=== PATIENT | female | born 1995 | race Caucasian/White ===

== ENCOUNTER 2020-02-11 06:18 | Emergency (ER) | payer MEDICAID, SELFPAY ==
[2020-02-11 06:20] VITALS: BP 126/99; PULSE 89; RESP 22; TEMP 36.4; O2SAT 100; BMI 35.2
--- NOTE | 2020-02-11 06:23 | ED.RN ---
CALLED FOR EKG PER RN REQUEST, PULLED OLD EKGS FOR
--- NOTE | 2020-02-11 06:26 | RAD_ITS ---
STUDY: X-RAY CHEST REASON FOR EXAM: Female, 24 years old. CHEST PAIN TECHNIQUE: AP portable COMPARISON: 10/20/2010. FINDINGS: The lungs are clear and expanded. There is no demonstrated pleural abnormality. Normal size heart. Normal mediastinum and tulio. Normal visualized pulmonary arteries. Normal visualized aortic arch and descending thoracic aorta. Normal visualized thoracic spine. Normal visualized ribs, clavicles, and shoulders. There is no demonstrated abnormality of the visualized soft tissue structures of the upper abdomen. RAD/Chest 1 View (Portable) IMPRESSION: Negative x-ray examination of the chest. Electronically Signed: Martin Ospina, at 7:15 EDT Tel , Service support ,
--- NOTE | 2020-02-11 06:26 | EKG12_ITS ---
Test Reason : CP Blood Pressure : / mmHG Vent. Rate : 078 BPM Atrial Rate : 078 BPM P-R Int : 176 ms QRS Dur : 104 ms QT Int : 354 ms P-R-T Axes : 053 039 043 degrees QTc Int : 403 ms Normal sinus rhythm Nonspecific T wave abnormality Abnormal ECG Confirmed by DESIREE SHEN ([id number]), dictionary editor JED GASPAR ([id number] on 02/17/2020 1:40:17 PM Referred By: BREN Confirmed By:DESIREE SHEN
[2020-02-11] MEDS: 0.9% Normal Saline 1,000 ML 1000 ML IV (06:40)
[2020-02-11] MEDS: Ondansetron 4 MG/2 ML Vial IV (06:40)
[2020-02-11] MEDS: Mag Hydrox/Al Hydrox/Simeth 30 ML UDC PO (06:40)
--- NOTE | 2020-02-11 06:45 | ED.DCSUM_ITS ---
- ER Visit Summary Date of Service: 02/11/20 Chief Complaint: Chest pain History of Present Illness: The patient is a [address] Moncada. She reports that an hour ago she was awakened from sleep by a lower chest/upper abdominal pain that she cannot further describe. Is 10 on 10 severity. Is worsened when I get up. Relieved by Tylenol. She denies any associated nausea, vomiting, or diaphoresis. She does report she is mild short of breath with this. She denies any spicy or fatty food intolerance. She has no personal or family history of DVT. No recent travel. No ankle swelling or calf pain. Physical Examination: Vitals: Stable. Afebrile. General: Well-nourished and well-developed. Head: Normocephalic atraumatic. Neck: Supple, no lymphadenopathy. No JVD. Nontender. Cardiovascular: Regular rate and rhythm. No murmurs. Respiratory: No respiratory distress. Clear to auscultation bilaterally. Abdominal: Soft, minimal epigastric tenderness to palpation, no right upper quadrant tenderness or Rawls sign, nondistended, normal bowel sounds. No guarding, rebound, or peritoneal signs. Back: Nontender. Extremities: Nontender, no edema. Skin: Normal color, no rash. Neurologic: Alert and oriented ?3. Cranial nerves II through XII are intact. Normal strength and sensation. Psych: Normal affect. Test Results: EKG is sinus at [address] changes. CBC is normal. Chem-7 shows a chloride of 108. LFTs are normal. Lipase is normal. test is negative. Chest x-ray shows no acute disease. Emergency Department Course and Treatment: Patient had an IV placed. She was given a liter normal saline. She was given Zofran IV and a GI cocktail p.o. She has had significant relief from this. She is resting comfortably. Treatment Plan: Patient awoke from sleep with epigastric and chest pain. I suspect that this is due to reflux. She will be placed on Prilosec. Instructed to follow-up with Dr. Sotelo in 1 week for another exam. Return to the emerg ency department for any worsening symptoms. Disposition: To home in improved and stable condition. Impression: 1. Atypical chest pain. 2. Epigastric pain. This note was generated with [employer]ation software. It may contain incorrect words, spelling, and punctuation that were not noted in review of the chart prior to signing ED Disposition - Plan for ED Patient: Instructions: ED Gastritis Prescriptions: Omeprazole [Prilosec] 20 mg PO DAILY #30 capsule Referrals: Luz Maria Sotelo MD [STAFF PHYSICIAN] - 1 Week
[2020-02-11 06:46] LABS: Absolute Lymphocyte Count 2.88 X10^3/uL (0.83-4.51); Absolute Neutrophil Count 4.3 X10^3/uL (2.0-7.7); Basophil# 0.05 X10^3/uL; Basophil% 0.6 % (0-1); Eosinophil# 0.35 X10^3/uL; Eosinophils% 4.2 % (0-5); Hematocrit 41.7 % (37-47); Hemoglobin 13.9 g/dL (12.0-15.0); Lymphocyte # 2.88 X10^3/ul (4.0); Lymphocyte % 34.3 % (19-41); Mean Corp Hgb Conc 33.3 g/dL (32-36); Mean Corpuscular Volume 87.1 fL (81-99); Mean Platelet Vol. 9.8 fl (6.2-12.0); Monocyte# 0.78 X10^3/uL; Monocyte% 9.3 % (0-10); NRBC Flagged by Analyzer 0 % (0-5); Neutrophil # 4.32 X10^3/uL (2.7-7.7); Neutrophil % 51.5 % (47-70); Platelet Count 228 K/mm3 (150-450); RBC Distribution Width CV 11.8 % (11.6-14.6); RBC Distribution Width SD 37.7 fl (35.1-43.9); Red Blood Count 4.79 M/mm3 (4.2-5.4); White Blood Count 8.4 K/mm3 (4.4-11.0)
[2020-02-11 07:06] LABS: Internal QC Validated? YES +Cl - CLEAR BKGD; Pregnancy, Serum, hCG Quali. NEGATIVE Negative
[2020-02-11 07:08] LABS: AST(SGOT) 15 U/L (15-37); Alanine Aminotransfer ALT/SGPT 27 U/L (13-56); Albumin, Serum 3.8 g/dL (3.2-5.0); Alkaline Phosphatase 81 U/L (45-117); Anion Gap 6 (5-15); BUN 16 mg/dL (7-18); BUN/Creat Ratio 20.1 RATIO (10-20); Bilirubin, Direct 0.16 mg/dL (0.00-0.30); Calcium,Total 9.2 mg/dL (8.5-10.1); Chloride 108 mmol/L (98-107); EST Glomerular Filtration Rate 94 mL/min (>60); Est Glom Filt Rate - Afr Amer 114 mL/min (>60); Estimated Creatinine Clearance 97.57 ml/min; Globulin 3.2 g/dL (2.2-4.2); Glucose 96 mg/dL (74-106); Lipase 125 U/L (73-393); Potassium 3.6 mmol/L (3.5-5.1); Sodium Level 139 mmol/L (136-145)
[2020-02-11 07:26] VITALS: BP 114/84; PULSE 77; RESP 20; O2SAT 99
--- OUTSIDE RECORDS SUMMARY | 2020-07-14 08:56 | XMS RPT_ITS | CCD ---
:1995 External Reference #:[id number] Author Organization [facility] Care Team Providers Name Role Phone SIERRAJan Unavailable Unavailable SIERRA, A Unavailable Unavailable MCCOMSEY Unavailable Unavailable MONCADA Unavailable Unavailable SMELCER Unavailable Unavailable MARK Unavailable Unavailable MONCADA Unavailable Unavailable SMELCER Unavailable Unavailable Kristin FLORES Unavailable Unavailable MARCOS, A Unavailable Unavailable Kristin FLORES Unavailable Unavailable Unavailable Primary Care Provider Unavailable Medications Medication Name Sig Date Prescriber Location Ibuprofen ibuprofen (MOTRIN) 10-08-2017 Quang Walls [facility] 600 mg tablet Take Quang Walls (4419 5) 1 tablet by mouth every 6 hours as needed for Pain. 40 tablet 1 10/08/2017 Active Comment: Take 1 tablet by mouth every 6 hours as needed for Pain. Levonorgestrel levonorgestrel (MIRENA 04-11-2019 - [facility] Provider [facility] INTRAUTERINE) by 04-11-2024 [facility] Provider ([id number]) INTRAUTERINE route. 0 04/11/2019 04/11/2024 Active Comment: by INTRAUTERINE route. 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 Contraceptive and IUD contraception Active [facility] procreative management (4419 5) Other complications of Outcome of delivery, Active 10-08-2017 - [facility] (25444) Unclassified 41 weeks gestation of Active 03-13-2017 - [facility] (97852) Past or Other Problems Category Problem Name Status Date Location Fracture of upper limb Fracture of metacarpal Completed 02-26-20 11 - [facility] bone (71498) Normal and/or Encounter for Completed 10-08-2017 - [facility] on General delivery [facility]term [facility] uncomplicated delivery (0000 0) Spondylosis; Low back pain Completed 01-14-2009 - [facility] ic intervertebral disc (63600) disorders; other back problems Unclassified Unknown / UNK(Unknown) 10-08-2017 - [facility] (87265) Unclassified 41 weeks gestation of 10-07-2017 - [facility] (05849) Unclassified Encounter for Completed 03-13-2017 - [facility] screening of (0000 0) mother Results Result Name Value Range Unit Interpretation Flag Date Location progress on 2020-01 PROGRESS HNO ID: [id number] Normal 02-12-2020 [facility] Author: Verito Gillis) ADAN Gonzalez [place] ([id number]) Service: ? Author Type: Registered Nurse Type: Progress Notes Filed: 02/12/2020 9:01 PM Note Text: Summary: Covid Follow Up - Chart Review Onset of symptoms 01/24/2020 Covid Positive 01/27/2020 Unable to reach patient. Not participating in [employer]. Discharge from Monitoring program. VERITO GONZALEZ RN February 12, 2020 9:00 PM PROGRESS HNO ID: [id number] Normal 02-12-2020 [facility] Author: Jaelyn Venegas RN [place] ([id number]) Service: ? Author Type: ? Type: Progress Notes Filed: 02/12/2020 11:33 AM Note Text: Voice Message left message that we had called. Day 20 onset of symptoms. Vivian, this is the [facility] calling, a member of you r household has been diagnosed as positive for COVID-19. We are sorry we missed you, but your care is important to us . You will be receiving a call daily for the next few weeks. Please take a moment to answer our calls. If any of your symptoms have worsened, please call you PCP o ffice to discuss. [facility] and NON [facility] patients may call: ? [facility] Nurse director aeronautics commission at [phone] ? Their PCP Office Caregivers may call: ? [facility] Employee Hotline: [phone] ? [facility] Employee Boost appointment for 24/04 emotional support: [phone] If you are finding it more difficult to breathe, or more blayne rt of breath when walking or climbing stairs, please go to the nearest ED . Inform the staff that you are COVID positive and you are having more sh ortness of breath while doing activities. SIGNATURE: Jaelyn Venegas RN PATIENT NAME: Vanessa Bacon DATE: February 12, 2020 TIME: 11:33 AM cnptoutreach on CNPTOUTREACH Patient Outreach (NURSMN) Normal 0 02-12-2020 [place] [facility] VANESSA BACON ([id number]) 1995 [facility] Time Provider Department ([id number]) 02/12/20 VERITO GONZALEZ (RN) NURSMN During your visit today, we recorded the following informati on about you: VERITO GONZALEZ RN, RN 02/12/2020 9:01 PM Signed Onset of symptoms 01/24/2020 Covid Positive 01/27/2020 Unable to reach patient. Not participating in [employer]rape [employer]. Discharge from Monitoring program. VERITO GONZALEZ RN February 12, 2020 9:00 PM Allergies As of Date: 02/12/2020 (No Known Allergies) Date Reviewed: 04/15/2019 Reviewed by: Jonn Flores MD - Fully Assessed Reason for Visit: Covid Follow Up [8267] Cmt: Covid Follow-Up - Chart Review Prescriptions as of 02/12/2020 Sig: MIRENA INTRAUTERINE by INTRAUTERINE route. IBUPROFEN 600 MG TABLET Take 1 tablet by mouth every * Problem List As Of Date 02/12/2020 Noted Resolved LUMBAGO [M54.5] 01/14/2009 Metacarpal bone fracture [S62.309A] 02/25/2011 ADD (attention deficit disorder) [F98.8] 04/22/2013 Supervision of normal first [Z34.00] 04/09/2014 Rh negative status during , antepartum*07/17/2014 0 12/12/2014 Active labor [[id number]] 10/24/2014 12/12/2014 Supervision of other normal , antepart*02/28/2017 0 03/14/2019 Rh negative state in antepartum period [O26.899*02/28/2017 0 10/08/2017 Chlamydia infection affecting [O98.81*03/02/2017 0 03/14/2019 More... GBS (group B Streptococcus carrier), +RV cultur*09/09/2017 0 10/08/2017 Multigravida in third trimester [Z34.83] 10/07/2017 10/08/19 18 Normal labor [O80, Z37.9] 10/07/2017 10/08/2017 41 weeks gestation of [Z3A.41] 10/07/2017 10/08/19 18 Vaginal delivery [O80] 10/07/2017 01/09/2018 IUD (intrauterine device) in place [Z97.5] More... Encounter Status:Closed by VERITO GONZALEZ on 02/12/20 [facility] Patient Outreach (AMBC[facility]) Normal 0 02-12-2020 [place] [facility] JORDIVANESSA ([id number]) 1995 [facility] Date Time Provider Department ([id number]) 02/12/20 JAELNY VENEGAS (RN) [facility] During your visit today, we recorded the following informati on about you: Jaelyn Venegas RN 02/12/2020 11:33 AM Signed Voice Message left message that we had called. Day 20 onset of symptoms. Helyris, this is the [facility] calling, a member of y our household has been diagnosed as positive for COVID-19. We are sorry we missed you, but your care is important to us . You will be receiving a call daily for the next few weeks. Please take a moment to answer our calls. If any of your symptoms have worsened, please ca ll you PCP office to discuss. [facility] and NON CCF patients may call: ? [facility] Nurse director aeronautics commission at [phone] ? Their PCP Office Caregivers may call: ? [facility] Employee Hotline: [phone] ? [facility] Employee Boost appointment for 24/04 emotional support: [phone] If you are finding it more difficult to breathe, or more short of breath when walking or climbing stairs, please go to the nearest ED. Inform the staff that you are COVID positive and you are havin g more shortness of breath while doing activities. SIGNATURE: Jaelyn Venegas RN PATIENT NAME: Vanessa Bacon DATE: February 12, 2020 TIME: 11:33 AM Allergies As of Date: 02/12/2020 (No Known Allergies) Date Reviewed: 04/15/2019 Reviewed by: Jonn Flores MD - Fully Assessed Reason for Visit: covid follow up (day 20 LVM) [Other] Reason For Visit History Recorded Prescriptions as of 02/12/2020 Sig: MIRENA INTRAUTERINE by INTRAUTERINE route. IBUPROFEN 600 MG TABLET Take 1 tablet by mouth every * Problem List As Of Date 02/12/2020 Noted Resolved LUMBAGO [M54.5] 01/14/2009 Metacarpal bone fracture [S62.309A] 02/25/2011 ADD (attention deficit disorder) [F98.8] 04/22/2013 Supervision of normal first [Z34.00] 04/09/2014 Rh negative status during , antepartum*07/17/2014 0 12/12/2014 Active labor [[id number]] 10/24/2014 12/12/2014 Supervision of other normal , antepart*02/28/2017 0 03/14/2019 Rh negative state in antepartum period [O26.899*02/28/2017 0 10/08/2017 Chlamydia infection affecting [O98.81*03/02/2017 0 03/14/2019 More... GBS (group B Streptococcus carrier), +RV cultur*09/09/2017 0 10/08/2017 Multigravida in third trimester [Z34.83] 10/07/2017 10/08/19 18 Normal labor [O80, Z37.9] 10/07/2017 10/08/2017 41 weeks gestation of [Z3A.41] 10/07/2017 10/08/19 18 Vaginal delivery [O80] 10/07/2017 01/09/2018 IUD (intrauterine device) in place [Z97.5] More... Encounter Status:Closed by JAELYN VENEGAS RN on 02/12/20 progress on 2020-01 PROGRESS HNO ID: [id number] Normal 02-11-2020 [facility] Author: Meaghan Gillis) ADAN Lewis [place] ([id number]) Service: ? Author Type: Registered Nurse Type: Progress Notes Filed: 02/11/2020 10:31 AM Note Text: Voice Message Day Vivian, this is the [facility] calling, a member of you r household has been diagnosed as positive for COVID-19. We are sorry we missed you, but your care is important to us . You will be receiving a call daily for the next few weeks. Please take a moment to answer our calls. If any of your symptoms have worsened, please call you PCP o ffice to discuss. [facility] and NON CCF patients may call: ? [facility] Nurse director aeronautics commission at [phone] ? Their PCP Office Caregivers may call: ? [facility] Employee Hotline: [phone] ? [facility] Employee Boost appointment for 24/04 emotional support: [phone] If you are finding it more difficult to breathe, or more blayne rt of breath when walking or climbing stairs, please go to the nearest ED . Inform the staff that you are COVID positive and you are having more sh ortness of breath while doing activities. SIGNATURE: Meaghan Lewis RN PATIENT NAME: Vanessa Alan Jordi DATE: February 11, 2020 TIME: 10:30 AM cnptoutreach on CNPTOUTREACH Patient Outreach (OTOLWI) Normal 0 02-11-2020 [place] [facility] JORDIVANESSA ([id number]) 1995 F [facility] [place] Date Time Provider Department ([id number]) 02/11/20 MEAGHAN LEWIS (RN) [facility] During your visit today, we recorded the following informati on about you: Meaghan Lewis RN, RN 02/11/2020 10:31 AM Signed Voice Message Day Vivian, this is the [facility] calling, a member of y our household has been diagnosed as positive for COVID-19. We are sorry we missed you, but your care is important to us . You will be receiving a call daily for the next few weeks. Please take a moment to answer our calls. If any of your symptoms have worsened, please ca ll you PCP office to discuss. [facility] and NON CCF patients may call: ? [facility] Nurse director aeronautics commission at [phone] ? Their PCP Office Caregivers may call: ? [facility] Employee Hotline: [phone] ? [facility] Employee Boost appointment for 24/04 emotional support: [phone] If you are finding it more difficult to breathe, or more short of breath when walking or climbing stairs, please go to the nearest ED. Inform the staff that you are COVID positive and you are havin g more shortness of breath while doing activities. SIGNATURE: Meaghan Lewis RN PATIENT NAME: Vanessa Bacon DATE: February 11, 2020 TIME: 10:30 AM Allergies As of Date: 02/11/2020 (No Known Allergies) Date Reviewed: 04/15/2019 Reviewed by: Jonn Flores MD - Fully Assessed Reason for Visit: Covid Follow Up [3887] Cmt: COVID Follow Up Day 19 Prescriptions as of 02/11/2020 Sig: MIRENA INTRAUTERINE by INTRAUTERINE route. IBUPROFEN 600 MG TABLET Take 1 tablet by mouth every * Problem List As Of Date 02/11/2020 Noted Resolved LUMBAGO [M54.5] 01/14/2009 Metacarpal bone fracture [S62.309A] 02/25/2011 ADD (attention deficit disorder) [F98.8] 04/22/2013 Supervision of normal first [Z34.00] 04/09/2014 Rh negative status during , antepartum*07/17/2014 0 12/12/2014 Active labor [VVQ5138] 10/24/2014 12/12/2014 Supervision of other normal , antepart*02/28/2017 0 03/14/2019 Rh negative state in antepartum period [O26.899*02/28/2017 0 10/08/2017 Chlamydia infection affecting [O98.81*03/02/2017 0 03/14/2019 More... GBS (group B Streptococcus carrier), +RV cultur*09/09/2017 0 10/08/2017 Multigravida in third trimester [Z34.83] 10/07/2017 10/08/19 18 Normal labor [O80, Z37.9] 10/07/2017 10/08/2017 41 weeks gestation of [Z3A.41] 10/07/2017 10/08/19 18 Vaginal delivery [O80] 10/07/2017 01/09/2018 IUD (intrauterine device) in place [Z97.5] More... Encounter Status:Closed by MEAGHAN LEWIS on 02/11/20 progress on 2020-01 PROGRESS HNO ID: [id number] Normal 02-10-2020 [facility] Author: Domingo Haley ([id number]) Service: ? Author Type: ? Type: Progress Notes Filed: 02/10/2020 10:09 AM Note Text: Voice Message Rukhsanayris, this is the [facility] calling, a member of you r household has been diagnosed as positive for COVID-19. We are sorry we missed you, but your care is important to us . You will be receiving a call daily for the next few weeks. Please take a moment to answer our calls. If any of your symptoms have worsened, please call you PCP o ffice to discuss. CCF and NON CCF patients may call: ? [facility] Nurse director aeronautics commission at [phone] ? Their PCP Office Caregivers may call: ? [facility] Employee Hotline: [phone] ? [facility] Employee Boost appointment for 24/04 emotional support: [phone] If you are finding it more difficult to breathe, or more blayne rt of breath when walking or climbing stairs, please go to the nearest ED . Inform the staff that you are COVID positive and you are having more sh ortness of breath while doing activities. SIGNATURE: Domingo Grimes PATIENT NAME: Vanessa Bacon DATE: February 10, 2020 TIME: 10:09 AM cnptoutreach on CNPTOUTREACH Patient Outreach (AMBCMG) Normal 0 02-10-2020 [place] [facility] VANESSA BACON ([id number]) 1995 [facility] Time Provider Department ([id number]) 02/10/20 DOMINGO GRIMES ([facility]) [facility] During your visit today, we recorded the following informati on about you: Domingo Grimes 02/10/2020 10:09 AM Signed Voice Message Hello, this is the [facility] calling, a member of y our household has been diagnosed as positive for COVID-19. We are sorry we missed you, but your care is important to us . You will be receiving a call daily for the next few weeks. Please take a moment to answer our calls. If any of your symptoms have worsened, please ca ll you PCP office to discuss. [facility] and NON CCF patients may call: ? [facility] Nurse director aeronautics commission at [phone] ? Their PCP Office Caregivers may call: ? [facility] Employee Hotline: [phone] ? [facility] Employee Boost appointment for 24/04 emotional support: [phone] If you are finding it more difficult to breathe, or more short of breath when walking or climbing stairs, please go to the nearest ED. Inform the staff that you are COVID positive and you are havin g more shortness of breath while doing activities. SIGNATURE: Domingo Grimes PATIENT NAME: Vanessa Bacon DATE: February 10, 2020 TIME: 10:09 AM Allergies As of Date: 02/10/2020 (No Known Allergies) Date Reviewed: 04/15/2019 Reviewed by: Jonn Flores MD - Fully Assessed Reason for Visit: Covid Follow Up [3887] Cmt: Day 17 Prescriptions as of 02/10/2020 Sig: MIRENA INTRAUTERINE by INTRAUTERINE route. IBUPROFEN 600 MG TABLET Take 1 tablet by mouth every * Problem List As Of Date 02/10/2020 Noted Resolved LUMBAGO [M54.5] 01/14/2009 Metacarpal bone fracture [S62.309A] 02/25/2011 ADD (attention deficit disorder) [F98.8] 04/22/2013 Supervision of normal first [Z34.00] 04/09/2014 Rh negative status during , antepartum*07/17/2014 0 12/12/2014 Active labor [FVZ6868] 10/24/2014 12/12/2014 Supervision of other normal , antepart*02/28/2017 0 03/14/2019 Rh negative state in antepartum period [O26.899*02/28/2017 0 10/08/2017 Chlamydia infection affecting [O98.81*03/02/2017 0 03/14/2019 More... GBS (group B Streptococcus carrier), +RV cultur*09/09/2017 0 10/08/2017 Multigravida in third trimester [Z34.83] 10/07/2017 10/08/19 18 Normal labor [O80, Z37.9] 10/07/2017 10/08/2017 41 weeks gestation of [Z3A.41] 10/07/2017 10/08/19 18 Vaginal delivery [O80] 10/07/2017 01/09/2018 IUD (intrauterine device) in place [Z97.5] More... Encounter Status:Closed by DOMINGO GRIMES on 02/10/20 progress on 2020-01 PROGRESS HNO ID: [id number] Normal 02-09-2020 [place] Author: Eugenia (Rn) [facility] Service: ? [place] Author Type: Registered Nurse ([id number]) Type: Progress Notes Filed: 02/09/2020 11:52 AM Note Text: COVID-19 POSITIVE PATIENT OUTREACH DAILY CALL Monitoring Call: Day 16 from symptom onset 01/24/20 *continues to have a cough in the morning when I get up, bu t it is getting better. per pt Vivian, this is the [facility] calling, may I speak to Vanessa Bacon I'm calling you to check in and ensure your needs are being met. Can we discuss if you are getting better or worse and how we can work together to help you recover? Patient identified by name and NOTE TO CAREGIVER: ANSWER THE COVID-19 Caregiver Monitoring FLOWSHEET AND COVID Disposition QUESTIONS NOW OUTCOME: NOTE TO CAREGIVER: AFTER FLOWSHEET COMPLETION PLEASE PLACE D OT PHRASE: (COVIDCAREGIVEMONITORING) COVID-19 Caregiver Monitoring There is no flowsheet data to display. NOTE TO CAREGIVER: AFTER ?COVID Disposition? FLOWSHEET COMPL ETION PLEASE PLACE DOT PHRASE: (COVIDDISPO) This is a stressful time for you and we want you to know you are supported. Would you like resources on how best to manage stress and an xiety during these times? No (Done) If you are worsening in any way please call your Primary Car e Provider right away. [facility] and NON CCF patients may call: ? [facility]CF Nurse director aeronautics commission at [phone] ? Their PCP Office Caregivers may call: ? [facility] Employee Hotline: [phone] [facility]CF Employee Boost appointment for 24/04 emotional support: Patient verbalizes understanding of information provided. Marces any further questions at this time. Please visit CDC.gov website for any updated information abo ut Coronavirus. You can also find information on the [facility] website. Additional information can be found on the [facility] and [facility] web sites: https://www.cdc.gov/coronavirus/2019-nCoV/index.html [email or web address] SIGNATURE: Eugenia Delatorre RN PATIENT NAME: Vanessa Bacon DATE: February 09, 2020 TIME: 11:49 AM cnptoutreach on CNPTOUTREACH Patient Outreach (FAMPAM) Normal 0 02-09-2020 [place] [facility] VANESSA BACON ([id number]) 1995 F [facility] Date Time Provider Department ([id number]) 02/09/20 EUGENIA DELATORRE (RN) JOSE During your visit today, we recorded the following informati on about you: Eugenia Delatorre RN, RN 02/09/2020 11:52 AM Signed COVID-19 POSITIVE PATIENT OUTREACH DAILY CALL Monitoring Call: Day 16 from symptom onset 01/24/20 *continues to have a cough in the morning when I get up, but it is getting better. per pt Vivian, this is the [facility] calling, may I speak to Vanessa Bacon I'm calling you to check in and ensure your needs are being met. Can we discuss if you are getting better or worse and how we can work together to help you recover? Patient identified by name and NOTE TO CAREGIVER: ANSWER THE COVID-19 Caregiver Monitori ng FLOWSHEET AND COVID Disposition QUESTIONS NOW OUTCOME: NOTE TO CAREGIVER: AFTER FLOWSHEET COMPLETION PLEASE PLACE D OT PHRASE: (COVIDCAREGIVEMONITORING) COVID-19 Caregiver Monitoring There is no flowsheet data to display. NOTE TO CAREGIVER: AFTER ?COVID Disposit ion? FLOWSHEET COMPLETION PLEASE PLACE DOT PHRASE: (COVIDDISPO) This is a stressful time for you and we want you to know y ou are supported. Would you like resources on how best to manage stress and anxiety during these times? No (Done) If you are worsening in any way please call your Prima ry Care Provider right away. [facility] and NON CCF patients may call: ? [facility] Nurse director aeronautics commission at [phone] ? Their PCP Office Caregivers may call: ? [facility] Employee Hotline: [phone] [facility] Employee Boost appointment for 24/04 emotional support: Patient verbalizes understanding of information provid ed. Denies any further questions at this time. Please visit CDC.gov website for any updated information about Coronavirus. You can also find information on the [facility] website. Additional information can be found on [facility] and [facility] web sites: https://www.cdc.gov/coronavirus/2019-nCoV/index.html [email or web address] SIGNATURE: Eugenia Delatorre RN PATIENT NAME: Vanessa Bacon DATE: February 09, 2020 TIME: 11:49 AM Allergies As of Date: 02/09/2020 (No Known Allergies) Date Reviewed: 04/15/2019 Reviewed by: Jonn Flores MD - Fully Assessed Reason for Visit: Covid Follow Up [3887] Prescriptions as of 02/09/2020 Sig: MIRENA INTRAUTERINE by INTRAUTERINE route. IBUPROFEN 600 MG TABLET Take 1 tablet by mouth every * Problem List As Of Date 02/09/2020 Noted Resolved LUMBAGO [M54.5] 01/14/2009 Metacarpal bone fracture [S62.309A] 02/25/2011 ADD (attention deficit disorder) [F98.8] 04/22/2013 Supervision of normal first [Z34.00] 04/09/2014 Rh negative status during , antepartum*07/17/2014 0 12/12/2014 Active labor [[id number]] 10/24/2014 12/12/2014 Supervision of other normal , antepart*02/28/2017 0 03/14/2019 Rh negative state in antepartum period [O26.899*02/28/2017 0 10/08/2017 Chlamydia infection affecting [O98.81*03/02/2017 0 03/14/2019 More... GBS (group B Streptococcus carrier), +RV cultur*09/09/2017 0 10/08/2017 Multigravida in third trimester [Z34.83] 10/07/2017 10/08/19 18 Normal labor [O80, Z37.9] 10/07/2017 10/08/2017 41 weeks gestation of [Z3A.41] 10/07/2017 10/08/19 18 Vaginal delivery [O80] 10/07/2017 01/09/2018 IUD (intrauterine device) in place [Z97.5] More... Encounter Status:Closed by EUGENIA DELATORRE on 02/09/20 progress on 2020-01 PROGRESS HNO ID: [id number] Normal 02-08-2020 [facility] Author: Linda Beckett ([place] ([id number]) Service: ? Author Type: Director Radio News Type: Progress Notes Filed: 02/08/2020 12:09 PM Note Text: Voice Message Vivian, this is the [facility] calling, a member of you r household has been diagnosed as positive for COVID-19. We are sorry we missed you, but your care is important to us . You will be receiving a call daily for the next few weeks. Please take a moment to answer our calls. If any of your symptoms have worsened, please call you PCP o ffice to discuss. [facility] and NON CCF patients may call: ? [facility] Nurse director aeronautics commission at [phone] ? Their PCP Office Caregivers may call: ? [facility] Employee Hotline: 584.169.4351 ? [facility] Employee Boost appointment for 24/04 emotional support: [phone] If you are finding it more difficult to breathe, or more blayne rt of breath when walking or climbing stairs, please go to the nearest ED . Inform the staff that you are COVID positive and you are having more sh ortness of breath while doing activities. SIGNATURE: DEREK Silver PATIENT NAME: Vanessa Bacon DATE: February 08, 2020 TIME: 12:09 PM cnptoutreach on CNPTOUTREACH Patient Outreach ([facility]) Normal 0 02-08-2020 [place] [facility] VANESSA BACON ([id number]) 1995 [facility] Date Time Provider Department ([id number]) 02/08/20 LINDA SABA) [facility] During your visit today, we recorded the following informati on about you: DEREK Silver 02/08/2020 12:09 PM Signed Voice Message Vivian, this is the [facility] calling, a member of y our household has been diagnosed as positive for COVID-19. We are sorry we missed you, but your care is important to us . You will be receiving a call daily for the next few weeks. Please take a moment to answer our calls. If any of your symptoms have worsened, please ca ll you PCP office to discuss. [facility] and [facility] patients may call: ? [facility] Nurse director aeronautics commission at [phone] ? Their PCP Office Caregivers may call: ? [facility] Employee Hotline: [phone] ? [facility] Employee Boost appointment for 24/04 emotional support: [phone] If you are finding it more difficult to breathe, or more short of breath when walking or climbing stairs, please go to the nearest ED. Inform the staff that you are COVID positive and you are havin g more shortness of breath while doing activities. SIGNATURE: DEREK Silver PATIENT NAME: Vanessa Bacon DATE: February 08, 2020 TIME: 12:09 PM Allergies As of Date: 02/08/2020 (No Known Allergies) Date Reviewed: 04/15/2019 Reviewed by: Jonn Flores MD - Fully Assessed Reason for Visit: Covid Follow Up [3887] Cmt: Covid follow up Prescriptions as of 02/08/2020 Sig: MIRENA INTRAUTERINE by INTRAUTERINE route. IBUPROFEN 600 MG TABLET Take 1 tablet by mouth every * Problem List As Of Date 02/08/2020 Noted Resolved LUMBAGO [M54.5] 01/14/2009 Metacarpal bone fracture [S62.309A] 02/25/2011 ADD (attention deficit disorder) [F98.8] 04/22/2013 Supervision of normal first [Z34.00] 04/09/2014 Rh negative status during , antepartum*07/17/2014 0 12/12/2014 Active labor [VTV7891] 10/24/2014 12/12/2014 Supervision of other normal , antepart*02/28/2017 0 03/14/2019 Rh negative state in antepartum period [O26.899*02/28/2017 0 10/08/2017 Chlamydia infection affecting [O98.81*03/02/2017 0 03/14/2019 More... GBS (group B Streptococcus carrier), +RV cultur*09/09/2017 0 10/08/2017 Multigravida in third trimester [Z34.83] 10/07/2017 10/08/19 18 Normal labor [O80, Z37.9] 10/07/2017 10/08/2017 41 weeks gestation of [Z3A.41] 10/07/2017 10/08/19 18 Vaginal delivery [O80] 10/07/2017 01/09/2018 IUD (intrauterine device) in place [Z97.5] More... Encounter Status:Closed by LINDA SABA on 02/08/20 progress on 2020-01 PROGRESS HNO ID: [id number] Normal 02-07-2020 [facility] Author: Olivia (Adan) ADAN Denise [place] ([id number]) Service: ? Author Type: Registered Nurse Type: Progress Notes Filed: 03/09/2020 3:00 AM Note Text: Voice Message . Will put on schedule again to assess h ow patient bis doing. Vivian, this is the [facility] calling, a member of you r household has been diagnosed as positive for COVID-19. We are sorry we missed you x 2 telephone calls, but your car e is important to us. You will be receiving a call daily for the next few weeks. Please take a moment to answer our calls. If any of your symptoms have worsened, please call you PCP o ffice to discuss. [facility] and NON [facility] patients may call: ? [facility] Nurse director aeronautics commission at [phone] ? Their PCP Office Caregivers may call: ? [facility] Employee Hotline: [phone] ? [facility] Employee Boost appointment for 24/04 emotional support: [phone] If you are finding it more difficult to breathe, or more blayne rt of breath when walking or climbing stairs, please go to the nearest ED . Inform the staff that you are COVID positive and you are having more sh ortness of breath while doing activities. SIGNATURE: Olivia Denise RN PATIENT NAME: Vanessa Bacon DATE: February 07, 2020 TIME: 9:51 AM cnptoutreach on CNPTOUTREACH Patient Outreach ([facility]) Normal 0 02-07-2020 [place] [facility] VANESSA BACON ([id number]) 1995 [address] [facility] Time Provider Department () 02/07/20 OLIVIA DENISE (RN) [facility] During your visit today, we recorded the following informati on about you: Olivia Denise RN, RN 03/09/2020 3:00 AM Signed Voice Message DAy . Will put on schedule again to assess h ow patient bis doing. Vivian, this is the [facility] calling, a member of y our household has been diagnosed as positive for COVID-19. We are sorry we missed you x 2 telephone calls, but your care is important to us. You will be receiving a call daily for the next few weeks. Please take a moment to answer our calls. If any of your symptoms have worsened, please ca ll you PCP office to discuss. [facility] and NON [facility] patients may call: ? [facility] Nurse director aeronautics commission at [phone] ? Their PCP Office Caregivers may call: ? [facility] Employee Hotline: [phone] ? [facility] Employee Boost appointment for 24/04 emotional support: [phone] If you are finding it more difficult to breathe, or more short of breath when walking or climbing stairs, please go to the nearest ED. Inform the staff that you are COVID positive and you are havin g more shortness of breath while doing activities. SIGNATURE: Olivia Denise RN PATIENT NAME: Vanessa Bacon DATE: February 07, 2020 TIME: 9:51 AM Allergies As of Date: 02/07/2020 (No Known Allergies) Date Reviewed: 04/15/2019 Reviewed by: Jonn Flores MD - Fully Assessed Reason for Visit: COVID -19 Followup [Other] Cmt: Patient Outreach Day 14 Reason For Visit History Recorded Primary Visit Diagnosis:COVID-19 [U07.1] Prescriptions as of 02/07/2020 Sig: MIRENA INTRAUTERINE by INTRAUTERINE route. IBUPROFEN 600 MG TABLET Take 1 tablet by mouth every * Problem List As Of Date 02/07/2020 Noted Resolved LUMBAGO [M54.5] 01/14/2009 Metacarpal bone fracture [S62.309A] 02/25/2011 ADD (attention deficit disorder) [F98.8] 04/22/2013 Supervision of normal first [Z34.00] 04/09/2014 Rh negative status during , antepartum*07/17/2014 0 12/12/2014 Active labor [SQV5945] 10/24/2014 12/12/2014 Supervision of other normal , antepart*02/28/2017 0 03/14/2019 Rh negative state in antepartum period [O26.899*02/28/2017 0 10/08/2017 Chlamydia infection affecting [O98.81*03/02/2017 0 03/14/2019 More... GBS (group B Streptococcus carrier), +RV cultur*09/09/2017 0 10/08/2017 Multigravida in third trimester [Z34.83] 10/07/2017 10/08/19 18 Normal labor [O80, Z37.9] 10/07/2017 10/08/2017 41 weeks gestation of [Z3A.41] 10/07/2017 10/08/19 18 Vaginal delivery [O80] 10/07/2017 01/09/2018 IUD (intrauterine device) in place [Z97.5] More... Encounter Status:Closed by MAN, PRODUSER on 03/09/20 progress on 2020-01 PROGRESS HNO ID: [id number] Normal 02-06-2020 [place] Author: Yash Zambrano (Oa) [facility] Service: ? [place] Author Type: Drawing Tender ([id number]) Type: Progress Notes Filed: 02/06/2020 11:42 AM Note Text: COVID-19 POSITIVE PATIENT OUTREACH DAILY CALL Monitoring Call: Day 13 from symptom onset 01/24/20 Vivian, this is the [facility] calling, may I speak to Vanessa Bacon I'm calling you to check in and ensure your needs are being met. Can we discuss if you are getting better or worse and how we can work together to help you recover? Patient identified by name and NOTE TO CAREGIVER: ANSWER THE COVID-19 Caregiver Monitoring FLOWSHEET AND COVID Disposition QUESTIONS NOW OUTCOME:stable continue to monitor -cough This is a stressful time for you and we want you to know you are supported. Would you like resources on how best to manage stress and an xiety during these times?no If you are worsening in any way please call your Primary Car e Provider right away. [facility] and NON [facility]CF patients may call: ? [facility] Nurse director aeronautics commission at [phone] ? Their PCP Office Caregivers may call: ? [facility] Employee Hotline: [phone] [facility] Employee Boost appointment for 24/04 emotional support: Patient verbalizes understanding of information provided. Marces any further questions at this time. Please visit CDC.gov website for any updated information abo ut Coronavirus. You can also find information on the [facility] website. Additional information can be found on the [facility] and [facility] web sites: https://www.cdc.gov/coronavirus/2019-nCoV/index.html [email or web address] SIGNATURE: BRYAN Webb PATIENT NAME: Vanessa Alan Nagi ruth DATE: February 06, 2020 TIME: 11:39 AM cnptoutreach on CNPTOUTREACH Patient Outreach ([facility]) Normal 0 02-06-2020 [place] [facility] BACONVANESSA ([id number]) 1995 [facility] Time Provider Department ([id number]) 02/06/20 Yash VIDAL (ROBERT) [facility] During your visit today, we recorded the following informati on about you: BRYAN Webb 02/06/2020 11:42 AM Signed COVID-19 POSITIVE PATIENT OUTREACH DAILY CALL Monitoring Call: Day 13 from symptom onset 01/24/20 Vivian, this is the [facility] calling, may I speak to Vanessa Bacon I'm calling you to check in and ensure your needs are being met. Can we discuss if you are getting better or worse and how we can work together to help you recover? Patient identified by name and NOTE TO CAREGIVER: ANSWER THE COVID-19 Caregiver Monitori ng FLOWSHEET AND COVID Disposition QUESTIONS NOW OUTCOME:stable continue to monitor -cough This is a stressful time for you and we want you to know y ou are supported. Would you like resources on how best to manage stress and anxiety during these times?no If you are worsening in any way please call your Prima ry Care Provider right away. [facility] and NON [facility]CF patients may call: ? [facility] Nurse director aeronautics commission at [phone] ? Their PCP Office Caregivers may call: ? [facility] Employee Hotline: [phone] [facility] Employee Boost appointment for 24/04 emotional support: Patient verbalizes understanding of information provid ed. Denies any further questions at this time. Please visit CDC.gov website for any updated information about Coronavirus. You can also find information on the [facility] website. Additional information can be found on [facility] and [facility] web sites: https://www.cdc.gov/coronavirus/2019-nCoV/index.html [email or web address] SIGNATURE: Yash Vidal OPTH-A PATIENT NAME: Vanessa ruth DATE: February 06, 2020 TIME: 11:39 AM Allergies As of Date: 02/06/2020 (No Known Allergies) Date Reviewed: 04/15/2019 Reviewed by: Jonn Flores MD - Fully Assessed Reason for Visit: Covid Follow Up [3887] Prescriptions as of 02/06/2020 Sig: MIRENA INTRAUTERINE by INTRAUTERINE route. IBUPROFEN 600 MG TABLET Take 1 tablet by mouth every * Problem List As Of Date 02/06/2020 Noted Resolved LUMBAGO [M54.5] 01/14/2009 Metacarpal bone fracture [S62.309A] 02/25/2011 ADD (attention deficit disorder) [F98.8] 04/22/2013 Supervision of normal first [Z34.00] 04/09/2014 Rh negative status during , antepartum*07/17/2014 0 12/12/2014 Active labor [XGX6708] 10/24/2014 12/12/2014 Supervision of other normal , antepart*02/28/2017 0 03/14/2019 Rh negative state in antepartum period [O26.899*02/28/2017 0 10/08/2017 Chlamydia infection affecting [O98.81*03/02/2017 0 03/14/2019 More... GBS (group B Streptococcus carrier), +RV cultur*09/09/2017 0 10/08/2017 Multigravida in third trimester [Z34.83] 10/07/2017 10/08/19 18 Normal labor [O80, Z37.9] 10/07/2017 10/08/2017 41 weeks gestation of [Z3A.41] 10/07/2017 10/08/19 18 Vaginal delivery [O80] 10/07/2017 01/09/2018 IUD (intrauterine device) in place [Z97.5] More... Encounter Status:Closed by Yash VIDAL on 02/06/20 progress on 2020-01 PROGRESS HNO ID: [id number] Normal 02-05-2020 [place] Author: Yash Zambrano (Oa) [facility] Service: ? [place] Author Type: Drawing Tender ([id number]) Type: Progress Notes Filed: 02/05/2020 10:13 AM Note Text: COVID-19 POSITIVE PATIENT OUTREACH DAILY CALL Monitoring Call: Day 12 from symptom onset 01/24/20 Vivian, this is the [facility] calling, may I speak to Vanessa Bacon I'm calling you to check in and ensure your needs are being met. Can we discuss if you are getting better or worse and how we can work together to help you recover? Patient identified by name and NOTE TO CAREGIVER: ANSWER THE COVID-19 Caregiver Monitoring FLOWSHEET AND COVID Disposition QUESTIONS NOW OUTCOME:stable continue to monitor This is a stressful time for you and we want you to know you are supported. Would you like resources on how best to manage stress and an xiety during these times?no If you are worsening in any way please call your Primary Car e Provider right away. [facility] and NON CCF patients may call: ? [facility] Nurse director aeronautics commission at [phone] ? Their PCP Office Caregivers may call: ? [facility] Employee Hotline: [phone] [facility] Employee Boost appointment for 24/04 emotional support: Patient verbalizes understanding of information provided. Marces any further questions at this time. Please visit CDC.gov website for any updated information abo ut Coronavirus. You can also find information on the [facility] website. Additional information can be found on the [facility] and [facility] web sites: https://www.cdc.gov/coronavirus/2019-nCoV/index.html [email or web address] SIGNATURE: BRYAN Webb PATIENT NAME: Vanessa Alan Nagi ruth DATE: February 05, 2020 TIME: 10:09 AM cnptoutreach on CNPTOUTREACH Patient Outreach ([facility]) Normal 0 02-05-2020 [place] [facility] VANESSA BACON ([id number]) 1995 [facility] Date Time Provider Department ([id number]) 02/05/20 Yash VIDAL () [facility] During your visit today, we recorded the following informati on about you: BRYAN Webb 02/05/2020 10:13 AM Signed COVID-19 POSITIVE PATIENT OUTREACH DAILY CALL Monitoring Call: Day 12 from symptom onset 01/24/20 Vivian, this is the [facility] calling, may I speak to Vanessa Alan Jordi I'm calling you to check in and ensure your needs are being met. Can we discuss if you are getting better or worse and how we can work together to help you recover? Patient identified by name and NOTE TO CAREGIVER: ANSWER THE COVID-19 Caregiver Monitori ng FLOWSHEET AND COVID Disposition QUESTIONS NOW OUTCOME:stable continue to monitor This is a stressful time for you and we want you to know y ou are supported. Would you like resources on how best to manage stress and anxiety during these times?no If you are worsening in any way please call your Prima ry Care Provider right away. [facility] and NON [facility]CF patients may call: ? [facility] Nurse director aeronautics commission at [phone] ? Their PCP Office Caregivers may call: ? [facility] Employee Hotline: [phone] [facility] Employee Boost appointment for 24/04 emotional support: [phone] Patient verbalizes understanding of information provid ed. Denies any further questions at this time. Please visit CDC.gov website for any updated information about Coronavirus. You can also find information on the [facility] website. Additional information can be found on [facility] and [facility] web sites: https://www.cdc.gov/coronavirus/2019-nCoV/index.html [email or web address] SIGNATURE: Yash Vidal, OPTH-A PATIENT NAME: Vanessa ruth DATE: February 05, 2020 TIME: 10:09 AM Allergies As of Date: 02/05/2020 (No Known Allergies) Date Reviewed: 04/15/2019 Reviewed by: Jonn Flores MD - Fully Assessed Reason for Visit: Covid Follow Up [7887] Prescriptions as of 02/05/2020 Sig: MIRENA INTRAUTERINE by INTRAUTERINE route. IBUPROFEN 600 MG TABLET Take 1 tablet by mouth every * Problem List As Of Date 02/05/2020 Noted Resolved LUMBAGO [M54.5] 01/14/2009 Metacarpal bone fracture [S62.309A] 02/25/2011 ADD (attention deficit disorder) [F98.8] 04/22/2013 Supervision of normal first [Z34.00] 04/09/2014 Rh negative status during , antepartum*07/17/2014 0 12/12/2014 Active labor [FFC2303] 10/24/2014 12/12/2014 Supervision of other normal , antepart*02/28/2017 0 03/14/2019 Rh negative state in antepartum period [O26.899*02/28/2017 0 10/08/2017 Chlamydia infection affecting [O98.81*03/02/2017 0 03/14/2019 More... GBS (group B Streptococcus carrier), +RV cultur*09/09/2017 0 10/08/2017 Multigravida in third trimester [Z34.83] 10/07/2017 10/08/19 18 Normal labor [O80, Z37.9] 10/07/2017 10/08/2017 41 weeks gestation of [Z3A.41] 10/07/2017 10/08/19 18 Vaginal delivery [O80] 10/07/2017 01/09/2018 IUD (intrauterine device) in place [Z97.5] More... Encounter Status:Closed by Yash VIDAL on 02/05/20 progress on 2020-01 PROGRESS HNO ID: [id number] Normal 02-04-2020 [facility] Author: Bela Vidal (Tech) [place] ([id number]) Service: ? Author Type: Director Radio News Type: Progress Notes Filed: 02/04/2020 9:08 AM Note Text: Voice Message [email or web address], this is the [facility] calling, a member of you r household has been diagnosed as positive for COVID-19. We are sorry we missed you, but your care is important to us . You will be receiving a call daily for the next few weeks. Please take a moment to answer our calls. If any of your symptoms have worsened, please call you PCP o ffice to discuss. [facility] and NON CCF patients may call: ? [facility] Nurse director aeronautics commission at [phone] ? Their PCP Office Caregivers may call: ? [facility] Employee Hotline: 400.634.4598 ? [facility] Employee Boost appointment for 24/04 emotional support: [phone] If you are finding it more difficult to breathe, or more blayne rt of breath when walking or climbing stairs, please go to the nearest ED . Inform the staff that you are COVID positive and you are having more sh ortness of breath while doing activities. SIGNATURE: Jazmin Vila PATIENT NAME: Vanessa Bacon DATE: February 04, 2020 TIME: 9:07 AM cnptoutreach on CNPTOUTREACH Patient Outreach ([facility]) Normal 0 02-04-2020 [place] [facility] VANESSA BACON ([id number]) 1995 [facility] Date Time Provider Department ([id number]) 02/04/20 BELA VIDAL ([facility]) [facility] During your visit today, we recorded the following informati on about you: Jazmin Vila 02/04/2020 9:08 AM Signed Voice Message Hello, this is the [facility] calling, a member of y our household has been diagnosed as positive for COVID-19. We are sorry we missed you, but your care is important to us . You will be receiving a call daily for the next few weeks. Please take a moment to answer our calls. If any of your symptoms have worsened, please ca ll you PCP office to discuss. [facility] and NON CCF patients may call: ? [facility] Nurse director aeronautics commission at [phone] ? Their PCP Office Caregivers may call: ? [facility] Employee Hotline: 734.163.1398 ? [facility] Employee Boost appointment for 24/04 emotional support: [phone] If you are finding it more difficult to breathe, or more short of breath when walking or climbing stairs, please go to the nearest ED. Inform the staff that you are COVID positive and you are havin g more shortness of breath while doing activities. SIGNATURE: Jazmin Vila PATIENT NAME: Vanessa Bacon DATE: February 04, 2020 TIME: 9:07 AM Allergies As of Date: 02/04/2020 (No Known Allergies) Date Reviewed: 04/15/2019 Reviewed by: Jonn Flores MD - Fully Assessed Reason for Visit: Track patient outreach [Other] Prescriptions as of 02/04/2020 Sig: MIRENA INTRAUTERINE by INTRAUTERINE route. IBUPROFEN 600 MG TABLET Take 1 tablet by mouth every * Problem List As Of Date 02/04/2020 Noted Resolved LUMBAGO [M54.5] 01/14/2009 Metacarpal bone fracture [S62.309A] 02/25/2011 ADD (attention deficit disorder) [F98.8] 04/22/2013 Supervision of normal first [Z34.00] 04/09/2014 Rh negative status during , antepartum*07/17/2014 0 12/12/2014 Active labor [JUF1889] 10/24/2014 12/12/2014 Supervision of other normal , antepart*02/28/2017 0 03/14/2019 Rh negative state in antepartum period [O26.899*02/28/2017 0 10/08/2017 Chlamydia infection affecting [O98.81*03/02/2017 0 03/14/2019 More... GBS (group B Streptococcus carrier), +RV cultur*09/09/2017 0 10/08/2017 Multigravida in third trimester [Z34.83] 10/07/2017 10/08/19 18 Normal labor [O80, Z37.9] 10/07/2017 10/08/2017 41 weeks gestation of [Z3A.41] 10/07/2017 10/08/19 18 Vaginal delivery [O80] 10/07/2017 01/09/2018 IUD (intrauterine device) in place [Z97.5] More... Encounter Status:Closed by BELA JAMA on 02/04/20 progress on 2020-01 PROGRESS HNO ID: [id number] Normal 02-03-2020 [facility] Author: Kurt Mcconnell (Tech) [place] ([id number]) Service: ? Author Type: Director Radio News Type: Progress Notes Filed: 02/03/2020 9:57 AM Note Text: Voice Message day 10 Disposition: Unable to reach, Left Voicemail - Continue [place], this is the [facility] calling, a member of you r household has been diagnosed as positive for COVID-19. We are sorry we missed you, but your care is important to us . You will be receiving a call daily for the next few weeks. Please take a moment to answer our calls. If any of your symptoms have worsened, please call you PCP o ffice to discuss. [facility] and NON CCF patients may call: ? [facility] Nurse director aeronautics commission at [phone] ? Their PCP Office Caregivers may call: ? [facility] Employee Hotline: 579.618.5741 ? [facility] Employee Boost appointment for 24/04 emotional support: [phone] If you are finding it more difficult to breathe, or more blayne rt of breath when walking or climbing stairs, please go to the nearest ED . Inform the staff that you are COVID positive and you are having more sh ortness of breath while doing activities. SIGNATURE: Jazmin Carlton PATIENT NAME: Vanessa Bacon DATE: February 03, 2020 TIME: 9:55 AM cnptoutreach on CNPTOUTREACH Patient Outreach ([facility]) Normal 0 02-03-2020 [place] [facility] VANESSA BACON ([id number]) 1995 [address] [facility] Time Provider Department ([id number]) 02/03/20 KURT MCCONNELL ([facility]) [facility] During your visit today, we recorded the following informati on about you: Jazmin Carlton 02/03/2020 9:57 AM Signed Voice Message day 10 Disposition: Unable to reach, Left Voicemail - Continue [place], this is the [facility] calling, a member of y our household has been diagnosed as positive for COVID-19. We are sorry we missed you, but your care is important to us . You will be receiving a call daily for the next few weeks. Please take a moment to answer our calls. If any of your symptoms have worsened, please ca ll you PCP office to discuss. [facility] and NON [facility]CF patients may call: ? [facility] Nurse director aeronautics commission at [phone] ? Their PCP Office Caregivers may call: ? [facility] Employee Hotline: 148.735.2889 ? [facility] Employee Boost appointment for 24/04 emotional support: [phone] If you are finding it more difficult to breathe, or more short of breath when walking or climbing stairs, please go to the nearest ED. Inform the staff that you are COVID positive and you are havin g more shortness of breath while doing activities. SIGNATURE: Jazmin Carlton PATIENT NAME: Vanessa Bacon DATE: February 03, 2020 TIME: 9:55 AM Allergies As of Date: 02/03/2020 (No Known Allergies) Date Reviewed: 04/15/2019 Reviewed by: Jonn Flores MD - Fully Assessed Reason for Visit: Covid Follow Up [3887] Cmt: covid f/u day 10 VM Reason For Visit History Recorded Prescriptions as of 02/03/2020 Sig: MIRENA INTRAUTERINE by INTRAUTERINE route. IBUPROFEN 600 MG TABLET Take 1 tablet by mouth every * Problem List As Of Date 02/03/2020 Noted Resolved LUMBAGO [M54.5] 01/14/2009 Metacarpal bone fracture [S62.309A] 02/25/2011 ADD (attention deficit disorder) [F98.8] 04/22/2013 Supervision of normal first [Z34.00] 04/09/2014 Rh negative status during , antepartum*07/17/2014 0 12/12/2014 Active labor [EJG1720] 10/24/2014 12/12/2014 Supervision of other normal , antepart*02/28/2017 0 03/14/2019 Rh negative state in antepartum period [O26.899*02/28/2017 0 10/08/2017 Chlamydia infection affecting [O98.81*03/02/2017 0 03/14/2019 More... GBS (group B Streptococcus carrier), +RV cultur*09/09/2017 0 10/08/2017 Multigravida in third trimester [Z34.83] 10/07/2017 10/08/19 18 Normal labor [O80, Z37.9] 10/07/2017 10/08/2017 41 weeks gestation of [Z3A.41] 10/07/2017 10/08/19 18 Vaginal delivery [O80] 10/07/2017 01/09/2018 IUD (intrauterine device) in place [Z97.5] More... Encounter Status:Closed by KURT MCCONNELL on 02/03/20 progress on 2020-01 PROGRESS HNO ID: [id number] Normal 02-02-2020 [facility] Author: Raymond Roberson (Oa) ([id number]) Service: ? Author Type: Drawing Tender Type: Progress Notes Filed: 02/02/2020 3:37 PM Note Text: Voice Message Rings busy and unable to leave message. Day 9 from onset 01/24/2020 SIGNATURE: Bryan Ivey PATIENT NAME: Vanessa ruth DATE: February 02, 2020 TIME: 3:32 PM cnptoutreach on CNPTOUTREACH Patient Outreach ([facility]) Normal 0 02-02-2020 [place] [facility] VANESSA BACON ([id number]) 1995 [facility] Time Provider Department ([id number]) 02/02/20 RAYMOND ROBERSON (OA) [facility] During your visit today, we recorded the following informati on about you: Bryan Ivey 02/02/2020 3:37 PM Signed Voice Message Rings busy and unable to leave message. Day 9 from onset 01/24/2020 SIGNATURE: Raymond Bryan Roberson PATIENT NAME: Vanessa ruth DATE: February 02, 2020 TIME: 3:32 PM Allergies As of Date: 02/02/2020 (No Known Allergies) Date Reviewed: 04/15/2019 Reviewed by: Jonn Flores MD - Fully Assessed Reason for Visit: Covid Follow Up [7587] Prescriptions as of 02/02/2020 Sig: MIRENA INTRAUTERINE by INTRAUTERINE route. IBUPROFEN 600 MG TABLET Take 1 tablet by mouth every * Problem List As Of Date 02/02/2020 Noted Resolved LUMBAGO [M54.5] 01/14/2009 Metacarpal bone fracture [S62.309A] 02/25/2011 ADD (attention deficit disorder) [F98.8] 04/22/2013 Supervision of normal first [Z34.00] 04/09/2014 Rh negative status during , antepartum*07/17/2014 0 12/12/2014 Active labor [OZX2371] 10/24/2014 12/12/2014 Supervision of other normal , antepart*02/28/2017 0 03/14/2019 Rh negative state in antepartum period [O26.899*02/28/2017 0 10/08/2017 Chlamydia infection affecting [O98.81*03/02/2017 0 03/14/2019 More... GBS (group B Streptococcus carrier), +RV cultur*09/09/2017 0 10/08/2017 Multigravida in third trimester [Z34.83] 10/07/2017 10/08/19 18 Normal labor [O80, Z37.9] 10/07/2017 10/08/2017 41 weeks gestation of [Z3A.41] 10/07/2017 10/08/19 18 Vaginal delivery [O80] 10/07/2017 01/09/2018 IUD (intrauterine device) in place [Z97.5] More... Encounter Status:Closed by RAYMOND ROBERSON on 02/02/20 progress on 2020-01 PROGRESS HNO ID: [id number] Normal 02-01-2020 [place] Author: Emma Membreno (Aud) [facility] Service: ? [place] Author Type: Beef Splitter ([id number]) Type: Progress Notes Filed: 02/01/2020 12:40 PM Note Text: COVID-19 POSITIVE PATIENT OUTREACH DAILY CALL Monitoring Call: Day 8 from symptom onset 01/24/20 (Populate d via order specific question [id number] - [facility] COVID-19 DATE OF SYMPTOMS ONS ET.) Vivian, this is the [facility] calling, may I speak to Vanessa Bacon I'm calling you to check in and ensure your needs are being met. Can we discuss if you are getting better or worse and how we can work together to help you recover? Patient identified by name and COVID-19 Caregiver Monitoring COVID-19 Monitoring 02/01/2020 Caregiver Entered Response Yes Are you feeling short of breath today? No Are you having a cough today? Yes Has it been worse over the past 24 hours? No Are you vomiting? No Are you experiencing diarrhea? No How is your appetite? Better Are you experiencing weakness today? No Highest Temperature - last 24 hours? (Caregiver Entered) 99 Do you have a pulse oximeter / Oxygen Monitor at home Yes Pulse Oxygen reading (Caregiver Entered) 98 Temperature (Patient Entered) (None) SpO2 (Patient Entered) (None) We would like to make sure you have what you need so that yo ur basic needs are met- including your personal safety, food, housing and medications?? Would you like to speak with a social work tea m member to help give you support for any of these needs? No It can be normal to feel anxious or down during a time like this. Would you like to talk to a mental health professional about how y ou have been feeling? No Patient reports that her only symptoms today feel like a col d. She has a cough and producing some phlegm. OUTCOME: Disposition: Stable, continue monitoring This is a stressful time for you and we want you to know you are supported. Would you like resources on how best to manage stress and an xiety during these times? No (Done) If you are worsening in any way please call your Primary Car e Provider right away. [facility] and NON [facility] patients may call: ? [facility] Nurse director aeronautics commission at [phone] ? Their PCP Office Caregivers may call: ? [facility] Employee Hotline: [phone] [facility] Employee Boost appointment for 24/04 emotional support: Patient verbalizes understanding of information provided. Osmar nies any further questions at this time. Please visit CDC.gov website for any updated information abo ut Coronavirus. You can also find information on the [facility] website. Additional information can be found on the CDC and [facility] web sites: https://www.cdc.gov/coronavirus/2019-nCoV/index.html [email or web address].org/coronavirus SIGNATURE: Emma Price PATIENT NAME: Vanessa Purdy rt DATE: February 01, 2020 TIME: 12:35 PM cnptoutreach on CNPTOUTREACH Patient Outreach ([facility]) Normal 0 02-01-2020 [place] VANESSA Edwards ([id number]) 1995 [facility] Date Time Provider Department ([id number]) 02/01/20 EMMA LACEY (AUD)[facility] During your visit today, we recorded the following informati on about you: Emma Price 02/01/2020 12:40 PM Signed COVID-19 POSITIVE PATIENT OUTREACH DAILY CALL Monitoring Call: Day 8 from symptom onset 01/24/20 (Populate d via order specific question [id number] - [facility] COVID-19 DATE OF SYMPTOMS ONS ET.) Vivian, this is the [facility] calling, may I speak to aVnessa Bacon I'm calling you to check in and ensure your needs are being met. Can we discuss if you are getting better or worse and how we can work together to help you recover? Patient identified by name and COVID-19 Caregiver Monitoring COVID-19 Monitoring 02/01/2020 Caregiver Entered Response Yes Are you feeling short of breath today? No Are you having a cough today? Yes Has it been worse over the past 24 hours? No Are you vomiting? No Are you experiencing diarrhea? No How is your appetite? Better Are you experiencing weakness today? No Highest Temperature - last 24 hours? (Caregiver Entered) 99 Do you have a pulse oximeter / Oxygen Monitor at home Yes Pulse Oxygen reading (Caregiver Entered) 98 Temperature (Patient Entered) (None) SpO2 (Patient Entered) (None) We would like to make sure you have what you need so that your basic needs are met- including your personal safety, marcela d, housing and medications?? Would you like to speak with a social work steam generating powerplant mechanic to help give you support for any of these needs? No It can be normal to feel anxious or down during a time lik e this. Would you like to talk to a mental health professional abo nc how you have been feeling? No Patient reports that her only symptoms t [place] feel like a cold. She has a cough and producing some phlegm. OUTCOME: Disposition: Stable, continue monitoring This is a stressful time for you and we want you to know y ou are supported. Would you like resources on how best to manage stress and anxiety during these times? No (Done) If you are worsening in any way please call your Prima ry Care Provider right away. [facility] and NON [facility] patients may call: ? [facility] Nurse director aeronautics commission at [phone] ? Their PCP Office Caregivers may call: ? [facility] Employee Hotline: [phone] [facility] Employee Boost appointment for 24/04 emotional support: Patient verbalizes understanding of information provid ed. Denies any further questions at this time. Please visit CDC.gov website for any updated information about Coronavirus. You can also find information on the [facility] website. Additional information can be found on [facility] and [facility] web sites: https://www.cdc.gov/coronavirus/2019-nCoV/index.html [email or web address] SIGNATURE: Emma Price PATIENT NAME: Vanessa Purdy rt DATE: February 01, 2020 TIME: 12:35 PM Allergies As of Date: 02/01/2020 (No Known Allergies) Date Reviewed: 04/15/2019 Reviewed by: Jonn Flores MD - Fully Assessed Reason for Visit: Covid Follow Up [3887] Cmt: Covid follow up (Day 8) Prescriptions as of 02/01/2020 Sig: MIRENA INTRAUTERINE by INTRAUTERINE route. IBUPROFEN 600 MG TABLET Take 1 tablet by mouth every * Problem List As Of Date 02/01/2020 Noted Resolved LUMBAGO [M54.5] 01/14/2009 Metacarpal bone fracture [S62.309A] 02/25/2011 ADD (attention deficit disorder) [F98.8] 04/22/2013 Supervision of normal first [Z34.00] 04/09/2014 Rh negative status during , antepartum*07/17/2014 0 12/12/2014 Active labor [MAI5553] 10/24/2014 12/12/2014 Supervision of other normal , antepart*02/28/2017 0 03/14/2019 Rh negative state in antepartum period [O26.899*02/28/2017 0 10/08/2017 Chlamydia infection affecting [O98.81*03/02/2017 0 03/14/2019 More... GBS (group B Streptococcus carrier), +RV cultur*09/09/2017 0 10/08/2017 Multigravida in third trimester [Z34.83] 10/07/2017 10/08/19 18 Normal labor [O80, Z37.9] 10/07/2017 10/08/2017 41 weeks gestation of [Z3A.41] 10/07/2017 10/08/19 18 Vaginal delivery [O80] 10/07/2017 01/09/2018 IUD (intrauterine device) in place [Z97.5] More... Encounter Status:Closed by EMMA LACEY on 02/01/20 progress on 2020-01 PROGRESS HNO ID: [id number] Normal 01-31-2020 [facility] Author: Yash Zambrano (Oa) [place] ([id number]) Service: ? Author Type: Drawing Tender Type: Progress Notes Filed: 01/31/2020 11:03 AM Note Text: Voice Message MAIL BOX FULL Day 7 Hello, this is the [facility] calling, a member of you r household has been diagnosed as positive for COVID-19. We are sorry we missed you, but your care is important to us . You will be receiving a call daily for the next few weeks. Please take a moment to answer our calls. If any of your symptoms have worsened, please call you PCP o ffice to discuss. [facility] and NON [facility] patients may call: ? [facility] Nurse director aeronautics commission at [phone] ? Their PCP Office Caregivers may call: ? [facility] Employee Hotline: [phone] ? [facility] Employee Boost appointment for 24/04 emotional support: [phone] If you are finding it more difficult to breathe, or more blayne rt of breath when walking or climbing stairs, please go to the nearest ED . Inform the staff that you are COVID positive and you are having more sh ortness of breath while doing activities. SIGNATURE: BRYAN Webb PATIENT NAME: Vanessa ruth DATE: January 31, 2020 TIME: 11:02 AM cnptoutreach on CNPTOUTREACH Patient Outreach ([facility]) Normal 0 01-31-2020 [place] [id number] 1995 [facility] Time Provider Department ([id number]) 01/31/20 Yash VIDAL (ROBERT) [facility] During your visit today, we recorded the following informati on about you: BRYAN Webb 01/31/2020 11:03 AM Signed Voice Message MAIL BOX FULL Helyris, this is the [facility] calling, a member of y our household has been diagnosed as positive for COVID-19. We are sorry we missed you, but your care is important to us . You will be receiving a call daily for the next few weeks. Please take a moment to answer our calls. If any of your symptoms have worsened, please ca ll you PCP office to discuss. [facility] and NON [facility] patients may call: ? [facility] Nurse director aeronautics commission at [phone] ? Their PCP Office Caregivers may call: ? [facility] Employee Hotline: [phone] ? [facility] Employee Boost appointment for 24/04 emotional support: [phone] If you are finding it more difficult to breathe, or more short of breath when walking or climbing stairs, please go to the nearest ED. Inform the staff that you are COVID positive and you are havin g more shortness of breath while doing activities. SIGNATURE: BRYAN Webb PATIENT NAME: Vanessa ruth DATE: January 31, 2020 TIME: 11:02 AM Allergies As of Date: 01/31/2020 (No Known Allergies) Date Reviewed: 04/15/2019 Reviewed by: Jonn Flores MD - Fully Assessed Reason for Visit: Covid Follow Up [3887] Prescriptions as of 01/31/2020 Sig: MIRENA INTRAUTERINE by INTRAUTERINE route. IBUPROFEN 600 MG TABLET Take 1 tablet by mouth every * Problem List As Of Date 01/31/2020 Noted Resolved LUMBAGO [M54.5] 01/14/2009 Metacarpal bone fracture [S62.309A] 02/25/2011 ADD (attention deficit disorder) [F98.8] 04/22/2013 Supervision of normal first [Z34.00] 04/09/2014 Rh negative status during , antepartum*07/17/2014 0 12/12/2014 Active labor [BKN1773] 10/24/2014 12/12/2014 Supervision of other normal , antepart*02/28/2017 0 03/14/2019 Rh negative state in antepartum period [O26.899*02/28/2017 0 10/08/2017 Chlamydia infection affecting [O98.81*03/02/2017 0 03/14/2019 More... GBS (group B Streptococcus carrier), +RV cultur*09/09/2017 0 10/08/2017 Multigravida in third trimester [Z34.83] 10/07/2017 10/08/19 18 Normal labor [O80, Z37.9] 10/07/2017 10/08/2017 41 weeks gestation of [Z3A.41] 10/07/2017 10/08/19 18 Vaginal delivery [O80] 10/07/2017 01/09/2018 IUD (intrauterine device) in place [Z97.5] More... Encounter Status:Closed by Yash VIDAL on 01/31/20 progress on 2020-01 PROGRESS HNO ID: [id number] Normal 01-30-2020 [place] Author: Veronica Newton (Tech) [facility] Service: ? [place] Author Type: Director Radio News ([id number]) Type: Progress Notes Filed: 01/30/2020 10:14 AM Note Text: COVID-19 POSITIVE PATIENT OUTREACH DAILY CALL Monitoring Call: Day 6 from symptom onset 01/24/20 (Populate d via order specific question [id number] - [facility] COVID-19 DATE OF SYMPTOMS ONS ET.) Rukhsanayris, this is the [facility] calling, may I speak to Vanessa Bacon I'm calling you to check in and ensure your needs are being met. Can we discuss if you are getting better or worse and how we can work together to help you recover? Patient identified by name and OUTCOME: COVID-19 Caregiver Monitoring COVID-19 Monitoring 01/30/2020 Caregiver Entered Response Yes Are you feeling short of breath today? No Are you having a cough today? Yes Has it been worse over the past 24 hours? Yes Refer to CDC and [facility] website Referred to Lizzy es Are you vomiting? No Are you experiencing diarrhea? Yes Have you been able to stay hydrated? Yes How is your appetite? Same Are you experiencing weakness today? No Highest Temperature - last 24 hours? (Caregiver Entered) 99. 7 Do you have a pulse oximeter / Oxygen Monitor at home Yes Pulse Oxygen reading (Caregiver Entered) 98 Temperature (Patient Entered) (None) SpO2 (Patient Entered) (None) We would like to make sure you have what you need so that yo ur basic needs are met- including your personal safety, food, housing and medications?? Would you like to speak with a social work tea m member to help give you support for any of these needs? No It can be normal to feel anxious or down during a time like this. Would you like to talk to a mental health professional about how y ou have been feeling? No Advanced Directives I am ready to learn more on my own. Patient continues to cough, and was coughing while speaking with her on the phone. .Disposition: Stable, continue monitoring This is a stressful time for you and we want you to know you are supported. Would you like resources on how best to manage stress and an xiety during these times? No (Done) If you are worsening in any way please call your Primary Car e Provider right away. [facility] and NON [facility] patients may call: ? [facility] Nurse director aeronautics commission at [phone] ? Their PCP Office Caregivers may call: ? [facility] Employee Hotline: [phone] [facility] Employee Boost appointment for 24/04 emotional support: [phone] Patient verbalizes understanding of information provided. De nies any further questions at this time. Please visit CDC.gov website for any updated information abo ut Coronavirus. You can also find information on the [facility] website. Additional information can be found on the [facility] and [facility] web sites: https://www.cdc.gov/coronavirus/2019-nCoV/index.html https://[email or web address]/coronavirus SIGNATURE: Jazmin Brandt PATIENT NAME: Vanessa ruth DATE: January 30, 2020 TIME: 10:07 AM cnptoutreach on CNPTOUTREACH Patient Outreach ([facility]) Normal 0 01-30-2020 [place] Martina BACONVANESSA Alan ([id number]) 1995 [facility] Time Provider Department ([id number]) 01/30/20 VERONICA NEWTON (JAZMIN) [facility] During your visit today, we recorded the following informati on about you: Jazmin Brandt 01/30/2020 10:14 AM Signed COVID-19 POSITIVE PATIENT OUTREACH DAILY CALL Monitoring Call: Day 6 from symptom onset 01/24/20 (Populate d via order specific question [id number] - [facility] COVID-19 DATE OF SYMPTOMS ONS ET.) Vivian, this is the [facility] calling, may I speak to Vanessa Bacon I'm calling you to check in and ensure your needs are being met. Can we discuss if you are getting better or worse and how we can work together to help you recover? Patient identified by name and OUTCOME: COVID-19 Caregiver Monitoring COVID-19 Monitoring 01/30/2020 Caregiver Entered Response Yes Are you feeling short of breath today? No Are you having a cough today? Yes Has it been worse over the past 24 hours? Yes Refer to [facility] and [facility] website Referred to Lizzy es Are you vomiting? No Are you experiencing diarrhea? Yes Have you been able to stay hydrated? Yes How is your appetite? Same Are you experiencing weakness today? No Highest Temperature - last 24 hours? (Caregiver Entered) 99. 7 Do you have a pulse oximeter / Oxygen Monitor at home Yes Pulse Oxygen reading (Caregiver Entered) 98 Temperature (Patient Entered) (None) SpO2 (Patient Entered) (None) We would like to make sure you have what you need so that your basic needs are met- including your personal safety, marcela d, housing and medications?? Would you like to speak with a social work steam generating powerplant mechanic to help give you support for any of these needs? No It can be normal to feel anxious or down during a time lik e this. Would you like to talk to a mental health professional abo nc how you have been feeling? No Advanced Directives I am ready to learn more on my own. Patient continues to cough, and was coughing while speakin g with her on the phone. .Disposition: Stable, continue monitoring This is a stressful time for you and we want you to know y ou are supported. Would you like resources on how best to manage stress and anxiety during these times? No (Done) If you are worsening in any way please call your Prima Care Provider right away. [facility] and NON [facility] patients may call: ? [facility] Nurse director aeronautics commission at [phone] ? Their PCP Office Caregivers may call: ? [facility] Employee Hotline: [phone] [facility] Employee Boost appointment for 24/04 emotional support: Patient verbalizes understanding of information provid ed. Denies any further questions at this time. Please visit CDC.gov website for any updated information about Coronavirus. You can also find information on the [facility] website. Additional information can be found on [facility] and [facility] web sites: https://www.cdc.gov/coronavirus/2019-nCoV/index.html [email or web address]/[email or web address] SIGNATURE: Jazmin Brandt PATIENT NAME: Vanessa ruth DATE: January 30, 2020 TIME: 10:07 AM Allergies As of Date: 01/30/2020 (No Known Allergies) Date Reviewed: 04/15/2019 Reviewed by: Jonn Flores MD - Fully Assessed Reason for Visit: Covid Follow Up [3887] Cmt: covid follow up Prescriptions as of 01/30/2020 Sig: MIRENA INTRAUTERINE by INTRAUTERINE route. IBUPROFEN 600 MG TABLET Take 1 tablet by mouth every * Problem List As Of Date 01/30/2020 Noted Resolved LUMBAGO [M54.5] 01/14/2009 Metacarpal bone fracture [S62.309A] 02/25/2011 ADD (attention deficit disorder) [F98.8] 04/22/2013 Supervision of normal first [Z34.00] 04/09/2014 Rh negative status during , antepartum*07/17/2014 0 12/12/2014 Active labor [VVM0882] 10/24/2014 12/12/2014 Supervision of other normal , antepart*02/28/2017 0 03/14/2019 Rh negative state in antepartum period [O26.899*02/28/2017 0 10/08/2017 Chlamydia infection affecting [O98.81*03/02/2017 0 03/14/2019 More... GBS (group B Streptococcus carrier), +RV cultur*09/09/2017 0 10/08/2017 Multigravida in third trimester [Z34.83] 10/07/2017 10/08/19 18 Normal labor [O80, Z37.9] 10/07/2017 10/08/2017 41 weeks gestation of [Z3A.41] 10/07/2017 10/08/19 18 Vaginal delivery [O80] 10/07/2017 01/09/2018 IUD (intrauterine device) in place [Z97.5] More... Encounter Status:Closed by VERONICA NEWTON on 01/30/20 cnpn on 2020-01-29 CNPN Telephone (CATHMN) Normal 01-29-2020 [place] VANESSA [place] ([id number]) 1995 [place] Date Time Provider Department ([id number]) 01/29/20 TELLO SHOEMAKER (RN) CATHMN During your visit today, we recorded the following informati on about you: Tello Gali 01/29/2020 12:35 PM Signed Called patient at this time for follow up after receiving [employer] consent. Pt did not answer and mailbox was full, unable to leave Cocodrilo Dog message. Tello Gali RN Pager: [phone] Allergies As of Date: 01/29/2020 (No Known Allergies) Date Reviewed: 04/15/2019 Reviewed by: Jonn Flores MD - Fully Assessed Reason for Visit: Research F/U [778] Cmt: IRB#[phone] COVID AtoZ call back Primary Visit Diagnosis:IRB#[phone] COVID AtoZ call back [Z00 .6] Prescriptions as of 01/29/2020 Sig: MIRENA INTRAUTERINE by INTRAUTERINE route. IBUPROFEN 600 MG TABLET Take 1 tablet by mouth every * Problem List As Of Date 01/29/2020 Noted Resolved LUMBAGO [M54.5] 01/14/2009 Metacarpal bone fracture [S62.309A] 02/25/2011 ADD (attention deficit disorder) [F98.8] 04/22/2013 Supervision of normal first [Z34.00] 04/09/2014 Rh negative status during , antepartum*07/17/2014 0 12/12/2014 Active labor [AIT5114] 10/24/2014 12/12/2014 Supervision of other normal , antepart*02/28/2017 0 03/14/2019 Rh negative state in antepartum period [O26.899*02/28/2017 0 10/08/2017 Chlamydia infection affecting [O98.81*03/02/2017 0 03/14/2019 More... GBS (group B Streptococcus carrier), +RV cultur*09/09/2017 0 10/08/2017 Multigravida in third trimester [Z34.83] 10/07/2017 10/08/19 18 Normal labor [O80, Z37.9] 10/07/2017 10/08/2017 41 weeks gestation of [Z3A.41] 10/07/2017 10/08/19 18 Vaginal delivery [O80] 10/07/2017 01/09/2018 IUD (intrauterine device) in place [Z97.5] More... Encounter Status:Closed by TELLO SHOEMAKER on 01/29/20 progress on 2020-01 PROGRESS HNO ID: [id number] Normal 01-28-2020 [facility] Author: Harjit Gillis) ADAN Davis [place] ([id number]) Service: ? Author Type: Registered Nurse Type: Progress Notes Filed: 01/28/2020 1:09 PM Note Text: HVI RESEARCH DISCUSSION NOTE COVID POSITIVE 20-361 Coronavirus Disease 2019- Using Ascorbic Acid and Zin c Supplementation (COVIDAtoZ): Insert only IRB approved COVID studies Study explained/reviewed with Patient via Phone encounter. Study related follow-up requirements were discussed. Risks, benefits, alternatives, personnel, and costs of the s tudy explained/reviewed. Patient provided informed consent for review via Email Study related questions were addressed. Coordinator: Harjit Davis RN AND Pager: [phone] PROGRESS HNO ID: [id number] Normal 01-28-2020 [facility] Author: Tiffanie LynneRn) ADAN Sewell [place] ([id number]) Service: ? Author Type: Registered Nurse Type: Progress Notes Filed: 01/28/2020 10:37 AM Note Text: COVID-19 POSITIVE PATIENT OUTREACH INTAKE Reason for call: Notification of Positive Results and Intake Vivian, this is the [facility] calling, may I speak to Vanessa Bacon Patient identified by name and I am calling to notify you that your COVID-19 testing was po sitive. I understand this is worrisome to you and want you to know w e are here to help you. I am contacting you to help you understand what this means, monitor if you are getting better or worse and how we can work together to help you recover. Also, your local health department will also be contacting y ou, if they have not yet already. The Health Department will provide you with important inform ation and help you, and your family, understand the next steps in working through this infection. It is very important to talk with them and provide any needed information. They will also help you with clearance once you have recovered from this infection. In some cases, your employer may provide additional guidance as well, but the health department will be the organization that officially provides you with guidance on when you can discontinue isolation. Diagnosed with COVID-19 on 01/27/2020 Symptom start date: 01/24/20 Confirm PCP: No primary care provider on file. High Risk Category:4 None NOTE TO CAREGIVER: ASK THESE QUESTIONS FIRST Do you have someone at home with you or someone who can go t o the store to get food or medication for you? Yes. Who? boyfriend (if no, see PCSW order below) Are you able to follow the quarantine guidelines? Yes Would you like me to send you information about COVID-19? No Does patient need a referral to resources or PCSW? No We want to support you and closely monitor your symptoms. To best do that, I am inviting you to complete a short questionnaire ev for the next 14 days that will ask how you are feeling - and if certain symptoms are improving or getting worse. Your treatment team , Including a nurse, will review your answers and then follow up if we notice any concerning changes in your symptoms. The question naire will come to you through your [employer] account. May I sign yo u up for this? Yes NOTE TO CAREGIVER: ANSWER THE COVID-19 Caregiver Monitoring FLOWSHEET AND 'COVID Disposition QUESTIONS NOW IN THE ENCOUNTER. OUTCOME: NOTE TO CAREGIVER: AFTER FLOWSHEET COMPLETION PLEASE PLACE D OT PHRASE: (COVIDCAREGIVEMONITORING) COVID-19 Caregiver Monitoring COVID-19 Monitoring 01/28/2020 Caregiver Entered Response Yes Are you feeling short of breath today? Yes Have you been able to perform your activities of daily livin g today without shortness of breath? Yes Are you having a cough today? Yes Has it been worse over the past 24 hours? Yes Are you vomiting? No Are you experiencing diarrhea? Yes Have you been able to stay hydrated? Yes How is your appetite? Same Are you experiencing weakness today? No Highest Temperature - last 24 hours? (Caregiver Entered) 98. 8 Do you have a pulse oximeter / Oxygen Monitor at home Yes Pulse Oxygen reading (Caregiver Entered) 99 Temperature (Patient Entered) (None) SpO2 (Patient Entered) (None) We would like to make sure you have what you need so that yo ur basic needs are met- including your personal safety, food, housing and medications?? Would you like to speak with a social work tea m member to help give you support for any of these needs? No It can be normal to feel anxious or down during a time like this. Would you like to talk to a mental health professional about how y ou have been feeling? No NOTE TO CAREGIVER: AFTER ?COVID Disposition? FLOWSHEET COMPL ETION PLEASE PLACE DOT PHRASE: (COVIDDISPO) Disposition: Stable, continue monitoring This is a stressful time for you and we want you to know you are supported. Would you like resources on how best to manage stress and an xiety during these times No (Done) Explained to patient that we will be calling for the next co uple of weeks and to please take a moment to answer our calls. If you are worsening in any way please call your Primary Car e Provider right away. We are here to support you if you have a change in your symp toms between now, and our future contact. Please contact us if you have n eeds. [facility] and NON [facility] patients may call: ? [facility] Nurse director aeronautics commission at [phone] ? Their PCP Office Caregivers may call: ? [facility] Employee Hotline: [phone] [facility] Employee Boost appointment for 24/04 emotional support: Patient verbalizes understanding of information provided. Marces any further questions at this time. Please visit CDC.gov website for any updated information abo ut Coronavirus. You can also find information on the [facility] website. Additional information can be found on the CDC and [facility] web sites: https://www.cdc.gov/coronavirus/2019-nCoV/index.html [email or web address] SIGNATURE: Tiffanie Sewell RN PATIENT NAME: Vanessa Alan Jey rt DATE: January 28, 2020 TIME: 10:30 AM cnptoutreach on CNPTOUTREACH Patient Outreach (PANEHI) Normal 0 01-28-2020 [facility] JORDIVANESAS ([id number]) 1995 [facility] Date Time Provider Department ([id number]) 01/28/20 TIFFANIE SEWELL (RN) FRANCISCO JAVIER During your visit today, we recorded the following informati on about you: Tiffanie Sewell, RN, RN 01/28/2020 10:37 AM Signed COVID-19 POSITIVE PATIENT OUTREACH INTAKE Reason for call: Notification of Positive Results and Intake Vivian, this is the [facility] calling, may I speak to Vanessa Bacon Patient identified by name and I am calling to notify you that your COVID-19 testing was po sitive. I understand this is worrisome to you an d want you to know we are here to help you. I am contacting you to help you understa nd what this means, monitor if you are getting better or worse and how we can work together to help you recover. Also, your local health department will also be contac ting you, if they have not yet already. The Health Department will p rovide you with important information and help you, and your family, understand the next steps in working through this infection. It is very important to talk with them and provide any needed information. They will also help you with clearance once you have recovered from this infection. In some cases, your employer may provide additional guidance as well, but the health department will be the organizatio n that officially provides you with guidance on when you can discontinue isolation. Diagnosed with COVID-19 on 01/27/2020 Symptom start date: 01/24/20 Confirm PCP: No primary care provider on file. High Risk Category:4 None NOTE TO CAREGIVER: ASK THESE QUESTIONS FIRST Do you have someone at home with you or someone who can go to the store to get food or medication for you? Yes. Who? boyfriend (if no, see PCSW order below) Are you able to follow the quarantine guidelines? Yes Would you like me to send you information about COVID-19? No Does patient need a referral to resources or PCSW? No We want to support you and closely monitor your sympto ms. To best do that, I am inviting you to complete a short questionnaire every day for the next 14 days that will ask how you are feeling - and if certain symptoms are improving or getting worse. Your treatment team , Including a nurse, will revi ew your answers and then follow up if we notice any concerning changes in your symptoms. The questionnaire will come to you through your [employer] ac count. May I sign you up for this? Yes NOTE TO CAREGIVER: ANSWER THE COVID-19 Caregiver Monitoring FLOWSHEET AND 'COVID Disposition QUESTIONS NOW IN THE ENCOUNTER. OUTCOME: NOTE TO CAREGIVER: AFTER FLOWSHEET COMPLETION PLEASE PLACE D OT PHRASE: (COVIDCAREGIVEMONITORING) COVID-19 Caregiver Monitoring COVID-19 Monitoring 01/28/2020 Caregiver Entered Response Yes Are you feeling short of breath today? Yes Have you been able to perform your activities of daily vanita ing today without shortness of breath? Yes Are you having a cough today? Yes Has it been worse over the past 24 hours? Yes Are you vomiting? No Are you experiencing diarrhea? Yes Have you been able to stay hydrated? Yes How is your appetite? Same Are you experiencing weakness today? No Highest Temperature - last 24 hours? (Caregiver Entered) 98. 8 Do you have a pulse oximeter / Oxygen Monitor at home Yes Pulse Oxygen reading (Caregiver Entered) 99 Temperature (Patient Entered) (None) SpO2 (Patient Entered) (None) We would like to make sure you have what you need so that your basic needs are met- including your personal safety, marcela d, housing and medications?? Would you like to speak with a social work steam generating powerplant mechanic to help give you support for any of these needs? No It can be normal to feel anxious or down during a time lik e this. Would you like to talk to a mental health professional abo ut how you have been feeling? No NOTE TO CAREGIVER: AFTER ?COVID Disposit ion? FLOWSHEET COMPLETION PLEASE PLACE DOT PHRASE: (COVIDDISPO) Disposition: Stable, continue monitoring This is a stressful time for you and we want you to know y ou are supported. Would you like resources on how best to manage stress and anxiety during these times No (Done) Explained to patient that we will be calling for the next couple of weeks and to please take a moment to answer our calls. If you are worsening in any way please call your Prima ry Care Provider right away. We are here to support you if you have a change in your symptoms between now, and our future contact. Please contact us if you have needs. [facility] and NON [facility] patients may call: ? [facility] Nurse director aeronautics commission at [phone] ? Their PCP Office Caregivers may call: ? [facility] Employee Hotline: [phone] [facility] Employee Boost appointment for 24/04 emotional support: Patient verbalizes understanding of information provid ed. Denies any further questions at this time. Please visit CDC.gov website for any updated information about Coronavirus. You can also find information on the [facility] website. Additional information can be found on [facility] and [facility] web sites: https://www.cdc.gov/coronavirus/2019-nCoV/index.html [email or web address] SIGNATURE: Tiffanie Sewell RN PATIENT NAME: Vanessa Purdy rt DATE: January 28, 2020 TIME: 10:30 AM Allergies As of Date: 01/28/2020 (No Known Allergies) Date Reviewed: 04/15/2019 Reviewed by: Jonn Flores MD - Fully Assessed Reason for Visit: Covid Follow Up [3887] Cmt: Intake, Day 5 Symptom onset Reason For Visit History Recorded Order(s):[facility] COVID-19 HOME MONITORING [[id number]] Order #: [id number] Prescriptions as of 01/28/2020 Sig: MIRENA INTRAUTERINE by INTRAUTERINE route. IBUPROFEN 600 MG TABLET Take 1 tablet by mouth every * Problem List As Of Date 01/28/2020 Noted Resolved LUMBAGO [M54.5] 01/14/2009 Metacarpal bone fracture [S62.309A] 02/25/2011 ADD (attention deficit disorder) [F98.8] 04/22/2013 Supervision of normal first [Z34.00] 04/09/2014 Rh negative status during , antepartum*07/17/2014 0 12/12/2014 Active labor [HBA7851] 10/24/2014 12/12/2014 Supervision of other normal , antepart*02/28/2017 0 03/14/2019 Rh negative state in antepartum period [O26.899*02/28/2017 0 10/08/2017 Chlamydia infection affecting [O98.81*03/02/2017 0 03/14/2019 More... GBS (group B Streptococcus carrier), +RV cultur*09/09/2017 0 10/08/2017 Multigravida in third trimester [Z34.83] 10/07/2017 10/08/19 18 Normal labor [O80, Z37.9] 10/07/2017 10/08/2017 41 weeks gestation of [Z3A.41] 10/07/2017 10/08/19 18 Vaginal delivery [O80] 10/07/2017 01/09/2018 IUD (intrauterine device) in place [Z97.5] More... Encounter Status:Closed by MELODIE JULIAN, TIFFANIE Newsome on 01/28/20 cnov on 2020-01-28 CNOV Office Visit (CARIMN) Normal 01-28-20 [facility] VANESSA BACON ([id number]) 1995 [facility] Date Time Provider Department ([id number]) 01/28/20 7:00 AM RESEARCH NURSE CARD IMAGING MNCARIMN During your visit today, we recorded the following informati on about you: Harjit Davis RN, RN 01/28/2020 1:09 PM Signed [facility] RESEARCH DISCUSSION NOTE COVID POSITIVE Coronavirus Disease 2019- Using Ascorbic Acid and Zinc Supplementation (COVIDAtoZ): Insert only IRB approved COVID studies Study explained/reviewed with Patient via Phone encounter. Study related follow-up requirements were discussed. Risks, benefits, alternatives, personnel, and costs of the s tudy explained/reviewed. Patient provided informed consent for review via Email Study related questions were addressed. Coordinator: Harjit Davis RN AND Pager: [phone] Referring Provider: ANGELIA SEVILLA [[id number]] Allergies As of Date: 01/28/2020 (No Known Allergies) Date Reviewed: 04/15/2019 Reviewed by: Jonn Flores MD - Fully Assessed Reason for Visit: Research [293] Cmt: Coronavirus Disease 2019- U sing Ascorbic Acid and Zinc Supplementation (COVIDAtoZ): Insert only IRB approved COVID studies Primary Visit Diagnosis:[id number] Coronavirus Disease 201 9- Using Ascorbic Acid and Zinc Supplementation (COVIDAtoZ): Insert only IRB approved COVID studies [Z00.6] Prescriptions as of 01/28/2020 Sig: MIRENA INTRAUTERINE by INTRAUTERINE route. IBUPROFEN 600 MG TABLET Take 1 tablet by mouth every * Problem List As Of Date 01/28/2020 Noted Resolved LUMBAGO [M54.5] 01/14/2009 Metacarpal bone fracture [S62.309A] 02/25/2011 ADD (attention deficit disorder) [F98.8] 04/22/2013 Supervision of normal first [Z34.00] 04/09/2014 Rh negative status during , antepartum*07/17/2014 0 12/12/2014 Active labor [SIA0784] 10/24/2014 12/12/2014 Supervision of other normal , antepart*02/28/2017 0 03/14/2019 Rh negative state in antepartum period [O26.899*02/28/2017 0 10/08/2017 Chlamydia infection affecting [O98.81*03/02/2017 0 03/14/2019 More... GBS (group B Streptococcus carrier), +RV cultur*09/09/2017 0 10/08/2017 Multigravida in third trimester [Z34.83] 10/07/2017 10/08/19 18 Normal labor [O80, Z37.9] 10/07/2017 10/08/2017 41 weeks gestation of [Z3A.41] 10/07/2017 10/08/19 18 Vaginal delivery [O80] 10/07/2017 01/09/2018 IUD (intrauterine device) in place [Z97.5] More... Encounter Status:Closed by HARJIT DAVIS on 01/28/20 progress on 2020-01 PROGRESS HNO ID: [id number] Normal 01-27-2020 [facility] Author: Suzan Izaguirre) Maury Haley ([id number]) Service: ? Author Type: Physician Fourchette Sewer Type: Progress Notes Filed: 01/27/2020 11:36 AM Note Text: This Team Access Model visit is a virtual encounter. It requ ired patient-provider interaction for the medical decision making as documented below. HIPAA secured video was used for evaluation of this patient. Location of patient: [place] Telemedicine Evaluation for COVID-19 Infection SUBJECTIVE: Vanessa Bacon is a 24 year old year old female who presents for the past 3 days with symptoms that are:gradually worsening. States she was seen on [employer] ([email or web address]) platform 01/24, she claims COVI D testing ordered but she never received info on how to get tested Symptoms include: Dry cough, chest pressure with coughing, SOB with exertion. Denies wheezing, PND, hemoptysis. Temps up to 99.8F. Denies chills. Endorses malaise. Nasal congestion. Denies chest congestion, sinus pressure, p ost-nasal drainage, ST. Frontal headaches and endorses acute loss of smell or taste Denies abdominal pain, n/v/d/c. 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 Yes Has the patient had contact with anyone confirmed or a proba ble case with COVID-19 infection in the last 14 days? Yes Does the patient have family with confirmed COVID-19 infecti on: No Has the patient traveled or resided in an area with sustaine d or ongoing community transmission of COVID-19? No REVIEW OF SYSTEMS: Nasal congestion: Yes Decreased appetite: No Vomiting: No Diarrhea: No Signs of dehydration (low fluid intake or voiding, diarrhea, dry mucus membranes): No Decreased level of consciousness: No MAJOR COVID-19 SYMPTOMS: *Coughing: Yes *Shortness of breath: Yes *Difficulty breathing: No MINOR COVID-19 SYMPTOMS: Fever: (Temp 100.4F or greater) No Chills: No Headache: Yes Acute loss of smell or taste: Yes Sore throat: No Muscle aches: Yes *If the patient has one major COVID-19 symptom or two minor COVID-19 symptoms, may clinically have COVID-19 as long as there is n o other clinical explanation for the symptom(s). *If the patient is in [place] and in a high risk category and h as at least 2 symptoms of : fever, cough, shortness of breath, myalgia, di arrhea, anosmia, loss of taste, then the patient may qualify for an ambulatory [facility] COVID-19 test. Route the chart to the COVID-19 HOTLINE POOL for testing determination. PATIENT'S HIGH RISK CATEGORY ASSESSMENT: One major COVID-19 symptom or two minor COVID-19 symptoms Known COVID-19 exposure Healthcare worker OBJECTIVE: Video Exam (Examination performed via Video enabled technolo gy) Alert, oriented, pleasant, in NAD :Yes Ill appearing :No Lethargic appearing :No Respiratory distress :No Coughing noted :Yes Audible wheezing noted No ASSESSMENT/PLAN: See encounter diagnoses and orders for additional plan. In review of chart, do not see COVID hotline was informed of testing recommendation 01/24. Will route to hotline as new encounter. Vanessa Bacon is an 24 year old who appears to have COVID-1 9 infection and is high risk or with concerning symptoms, recommend COVI D-19 testing. This patient encounter involved the screening or treatment o f novel coronavirus infection (COVID-19). - Red flags discussed for need for in person care - All questions answered SIGNATURE: Suzan Mendiola PA-C DATE: January 27, 2020 coronavirus 2019 on 2020-01-27 COVID 19 Positive for Negative for Critically 01-27-2020 Emile sweet Result OUTPATIENT FACILITY PHYSICAL THERAPIST COVID19 (SARS COVID19 (SARS abnormal Cl inic CoV2) by PCR. CoV2) by PCR. Emile sweet ([id number]) Comment: Result Comment: This test wa s developed and its performance characteristics determined by [facility]'s [facility]. This test has been authorized by FDA under an Emergency Us e Authorization (EUA). This test has been validated in accordance with the FDA's Guidance Document Policy for Diagnostics Testing in Laboratories Certified to Perform High Complexity Testing under CLIA prior to Emergency use Authorization for Coronavir us Disease 2019 during the Public Health Emergency issued on November 30, 2019. No call per procedure. 01/27/20 2310 Performed By: #### COVID ### #[facility], [place] [phone] COVID 19 Source OUTPATIENT FACILITY PHYSICAL THERAPIST Nasopharyngeal Swab Normal 0 01-27-2020 [facility] ([id number]) Comment: Performed By: #### COVID ### #[facility] [address] [place], [place] [id number]- [phone] jiann on 2020-01-27 CNPN Telephone (COVHLD) Normal 01-27-2020 [facility] BACONVANESSA ([id number]) 1995 [facility] Time Provider Department ([id number]) 01/27/20 CHELSY GARCIAS (JIAN) BABITA During your visit today, we recorded the following informati on about you: Chelsy Garcias APRN.CNP 01/27/2020 11:38 AM Signed Vivian, Thank you for the referral, this patient meets criteria for COVID-19 testing in accordance with criteria fou nd on the [facility] Intranet COVID19 Toolkit as of January 27, 2020 11:37 AM Please inform the patient that the test has been ordered, an d that the [facility] Scheduling Department will call to schedule test within 8-12 hours. In the meantime please advise the patient to self-fer rantine in accordance with CDC recommendations. Please extend our best wishes to the patient. Very Respectfully, Chelsy Garcias APRN.CNP Allergies As of Date: 01/27/2020 (No Known Allergies) Date Reviewed: 04/15/2019 Reviewed by: Jonn Flores MD - Fully Assessed Reason for Visit: Covid-19 Hotline [4001] Primary Visit Diagnosis:Suspected COVID-19 virus infection [ R68.89] Order(s):2019 CORONAVIRUS [SQCOVID] Order #: [id number] FUTU RE Prescriptions as of 01/27/2020 Sig: MIRENA INTRAUTERINE by INTRAUTERINE route. IBUPROFEN 600 MG TABLET Take 1 tablet by mouth every * Problem List As Of Date 01/27/2020 Noted Resolved LUMBAGO [M54.5] 01/14/2009 Metacarpal bone fracture [S62.309A] 02/25/2011 ADD (attention deficit disorder) [F98.8] 04/22/2013 Supervision of normal first [Z34.00] 04/09/2014 Rh negative status during , antepartum*07/17/2014 0 12/12/2014 Active labor [BRG8082] 10/24/2014 12/12/2014 Supervision of other normal , antepart*02/28/2017 0 03/14/2019 Rh negative state in antepartum period [O26.899*02/28/2017 0 10/08/2017 Chlamydia infection affecting [O98.81*03/02/2017 0 03/14/2019 More... GBS (group B Streptococcus carrier), +RV cultur*09/09/2017 0 10/08/2017 Multigravida in third trimester [Z34.83] 10/07/2017 10/08/19 18 Normal labor [O80, Z37.9] 10/07/2017 10/08/2017 41 weeks gestation of [Z3A.41] 10/07/2017 10/08/19 18 Vaginal delivery [O80] 10/07/2017 01/09/2018 IUD (intrauterine device) in place [Z97.5] More... Encounter Status:Closed by CHELSY GARCIAS on 01/27/20 CNPN Telephone (NOC) Normal 01-27-2020 Sujit dennis VANESSA Edwards ([id number]) 1995 [facility] [place] Date Time Provider Department ([id number]) 01/27/20 NICOLE PURCELL (RN) JOY During your visit today, we recorded the following informati on about you: Nicole Purcell RN, RN 01/27/2020 2:04 PM Signed Patient called asking to schedule for COVID-19, she states test is in [facility]. Patient transferred to [phone]. Nicole Purcell RN January 27, 2020 2:04 PM Allergies As of Date: 01/27/2020 (No Known Allergies) Date Reviewed: 04/15/2019 Reviewed by: Jonn Flores MD - Fully Assessed Reason for Visit: Covid-19 Hotline [8489] Prescriptions as of 01/27/2020 Sig: MIRENA INTRAUTERINE by INTRAUTERINE route. IBUPROFEN 600 MG TABLET Take 1 tablet by mouth every * Problem List As Of Date 01/27/2020 Noted Resolved LUMBAGO [M54.5] 01/14/2009 Metacarpal bone fracture [S62.309A] 02/25/2011 ADD (attention deficit disorder) [F98.8] 04/22/2013 Supervision of normal first [Z34.00] 04/09/2014 Rh negative status during , antepartum*07/17/2014 0 12/12/2014 Active labor [PBH2572] 10/24/2014 12/12/2014 Supervision of other normal , antepart*02/28/2017 0 03/14/2019 Rh negative state in antepartum period [O26.899*02/28/2017 0 10/08/2017 Chlamydia infection affecting [O98.81*03/02/2017 0 03/14/2019 More... GBS (group B Streptococcus carrier), +RV cultur*09/09/2017 0 10/08/2017 Multigravida in third trimester [Z34.83] 10/07/2017 10/08/19 18 Normal labor [O80, Z37.9] 10/07/2017 10/08/2017 41 weeks gestation of [Z3A.41] 10/07/2017 10/08/19 18 Vaginal delivery [O80] 10/07/2017 01/09/2018 IUD (intrauterine device) in place [Z97.5] More... Encounter Status:Closed by NICOLE PURCELL on 01/27/20 progress on 2020-01 PROGRESS HNO ID: [id number] Normal 01-26-2020 Haley Author: Citizen Of [place] [facility] Service: ? Haley Author Type: Physician ([id number]) Type: Progress Notes Filed: 01/26/2020 7:28 AM Note Text: Visit Summary for Vanessa Bacon - Gender: Female - Date of : 1995 Date: - Duration: 8 minutes Patient: Vanessa Bacon Provider: Arie Drake Patient Contact Information Address [facility] [place] [place] [id number] [phone] Visit Topics Fever , shortness of breathe , headache AND fatigue [Added B y: Self - 2020-01-26] Triage Questions Do you have a cough, fever (100.4 degrees or more), diarrhea or trouble breathing?Answer [] Have you been in contact with anyone con firmed with COVID 19 or suspected of having COVID 19 within the past 14 days?Answer [] Do you have any of the following: weak immune system, asthma or chronic lung disease, kidney problems and on dialysis, active cancer , diabetes or heart disease or high blood pressure, HIV or organ transplan t? Answer [] Do you have any vulnerable family members in the home (infan t, , weak immune system, lung disease, active cancer, elderly)?An swer [] Are you currently working in a healthcare facility? Answer [] at is the address where you are currently located? This is important i n case of a medical emergency.Answer [] Please enter a number I can cont act you in the event we are disconnected. Answer [] Conversation Transcripts [Notification] You are connected with Arie Drake, Family Physician.[Notification] Vanessa Bacon is located in [place]. [Notification] Vanessa Bacon has shared health history...[Notification] Hazel Drake has added a prescription.[Notification] Arie Drake has i ssued a referral.[Notification] Arie Drake has added a diagnosis /procedure code.[Notification] Arie Drake has added a diagnosis/pro cedure code.[Notification] Arie Drake has added a diagnosis/pro cedure code.[Notification] Arie Drake has issued a sick slip. Diagnosis Cough Value: R05 Code: ICD-10-CM Fever, unspecified Value: R50.9 Code: ICD-10-CM Procedures Value: [id number] Code: CPT-4 OFFICE/OUTPATIENT VISIT EST Value: [id number] Code: CPT-4 ONLINE E/M BY PHYS/QHP Medications Prescribed benzonatate Dose : 1 capsule Strength : 200 mg Route : oral Frequency : 3 times a day. As needed. Until directed to stop . Patient Instructions : prn cough Refills : 0 Instructions to the Pharmacist : Substitutions allowed Provider Notes The caller confirms they are the patient on the registration , and that they [place] calling from [place]: VideoHPI: onset. yesterd a of tempt to 99.8, cough. Chest feels tight like she can't get a full sadia ath. Pulse ox 98. 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 PM: NoneMeds: None NKDANonsmoker PSH: Tonsillectomy Not or nursin g. LMP: 41On video exam the patient appears in no distress. Speaking calm ly. Good historian. No slurring of speech. No audible wheeze. Speakin g in full sentences. Clear cough on request, not spontaneous. No Spont aneous cough. No cough or wheeze with forced exhalation. Cleaing throat. B reathing well. Assessment: Cough, fever. CLS-SPlan: Tessalon perles a s needed for cough. Mucus management: To make mucus more liquidy:1, Expec torant (guaifenesin), humidity and hydration. 2. Avoid or minimize drying/thickening agents (decongestants and antihistamines). 3. Take two or more showers a day (one before bed and one after waking u p4. Can also try: Neti Pot or sinus rinse, humidifier, chicken broth, a pples, drinking water.Discussed the normal course of a viral infect ion. Manage mucus flow and cough with guaifenesin, humidity and hydratio n. If fever or body ache occur after day 5, if severe or persisting sinu s or ear pain, or if symptoms are lasting more than 12 total days, consider follow up visit and possible antibiotic.Follow up at any time if worse blaise or if not improving as expected. Discussed the differential diagnosis, risks/benefits for treatment options and when to seek in per son care. All questions were addressed. Patient voiced understanding and a greement with plan. 1. If you received a prescription at this visit and you have a question or problem please call [phone] for prescription assistance2. Please print a copy of this no te and send it to your regular doctor, or take it to your next visit so it may be included in your medical record3. Please see your primary ca re provider on an annual basis or more frequently if directed =========You have been diagnosed with a viral respiratory infection. It m ay or may not be due to coronavirus (Covid-19). At this time your provider has determined that you do not require an urgent in -person eval uation. If your symptoms progress or worsen however, it may be necessar y to seek additional care in person. In the meantime, your provider re commends that you practice self-isolation. Additionally, your provider rec ommends that you follow good practices for infection prevention and contr ol (IPC) as described below. Home Self-Isolationa??Stay at home except t o receive medical carea??Separate yourself from other people and anima ls in the homea??Call ahead before visiting any health facilitya??Wear a facemask if around othersa??Cover your coughs and sneezesa??Clean you r hands oftena??Clean a??high toucha?? surfaces every dayMonitor you r symptoms for worseningSeek medical attention immediately if your illn ess is worsening (for example difficulty breathing, dizziness, dark colored urine). Before seeking care, call ahead to the facility and tell them that you may have Covid-19. Put on a facemask (or bandana) b efore entering the facility. If you believe you are experiencing a medical emergency, call 911 immediately and notify the personnel that you may h ave Covid-19. [facility]continuing [facility] recommendations for end ing home isolation are as follows:a??You have had no fever for at tu st 72 hours (that is three full days of no fever without the use medicin e that reduces fevers)a??Kristian??other symptoms have improved (for ex ample, when your cough or shortness of breath have improved)a??Kristian??at least 7 days have passed since your symptoms first appearedIf you have an y general questions you should try your primary care provider or the [facility]. If you would like to be rechecked by one of our providers, you may come on for a follow-up visit but usual fees will apply. Electronically signed by: Arie Drake( ) obsolete on 2019-10 OBSOLETE Refill ([facility]IM[facility]R) Normal 10-09-2019 Sujit jeannie VANESSA Edwards ([id number]) 1995 [facility] Date Time Provider Department ([id number]) 10/09/19 TRICIA MONCADA [facility] During your visit today, we recorded the following informati on about you: Allergies As of Date: 10/09/2019 (No Known Allergies) Date Reviewed: 04/15/2019 Reviewed by: Jonn Flores MD - Fully Assessed Reason for Visit: Refill Request [94] Order(s):griseofulvin, microsize (GRIFULVIN V) 500 mg tabletTake 1 tablet by mouth once daily.Disp: 30 tabletRfl: 1 Prescriptions as of 10/09/2019 Sig: GRISEOFULVIN MICROSIZE 500 MG* Take 1 tablet by mouth once d * MIRENA INTRAUTERINE by INTRAUTERINE route. IBUPROFEN 600 MG TABLET Take 1 tablet by mouth every * Problem List As Of Date 10/09/2019 Noted Resolved LUMBAGO [M54.5] 01/14/2009 Metacarpal bone fracture [S62.309A] 02/25/2011 ADD (attention deficit disorder) [F98.8] 04/22/2013 Supervision of normal first [Z34.00] 04/09/2014 Rh negative status during , antepartum*07/17/2014 0 12/12/2014 Active labor [EAY8435] 10/24/2014 12/12/2014 Supervision of other normal , antepart*02/28/2017 0 03/14/2019 Rh negative state in antepartum period [O26.899*02/28/2017 0 10/08/2017 Chlamydia infection affecting [O98.81*03/02/2017 0 03/14/2019 More... GBS (group B Streptococcus carrier), +RV cultur*09/09/2017 0 10/08/2017 Multigravida in third trimester [Z34.83] 10/07/2017 10/08/19 18 Normal labor [O80, Z37.9] 10/07/2017 10/08/2017 41 weeks gestation of [Z3A.41] 10/07/2017 10/08/19 18 Vaginal delivery [O80] 10/07/2017 01/09/2018 IUD (intrauterine device) in place [Z97.5] More... Prescriptions ordered this encounter Disp Refills Start End GRISEOFULVIN MICROSIZE 500 MG TABLET 30 t* 1 10/09/2019 02/0 04/2020 Route: ORAL Sig: Take 1 tablet by mouth once daily. Medications Discontinued During This Encounter Griseofulvin Ultramicrosize 250 mg t* 30 t* 1 10/05/2019 020 Route: ORAL Sig: Take 1 tablet by mouth once daily. Disc: Reason for discontinue is not on file. Encounter Status:Closed by TRICIA MONCADA DO on 10/09/19 obsolete on 2019-10 OBSOLETE Refill ([facility]) Normal [facility]05-[facility] ([id number]) 1995 [place] Date Time Provider Department ([id number]) 10/05/19 TRICIA MONCADA [facility] During your visit today, we recorded the following informati on about you: Allergies As of Date: 10/05/2019 (No Known Allergies) Date Reviewed: 04/15/2019 Reviewed by: Jonn Flores MD - Fully Assessed Reason for Visit: Refill Request [94] Order(s):Griseofulvin Ultramicrosize 250 mg tabTake 1 tablet by mouth once daily.Disp: 30 tabletRfl: 1 Prescriptions as of 10/05/2019 Sig: GRISEOFULVIN ULTRAMICROSIZE 2* Take 1 tablet by mouth once d * MIRENA INTRAUTERINE by INTRAUTERINE route. IBUPROFEN 600 MG TABLET Take 1 tablet by mouth every * Problem List As Of Date 10/05/2019 Noted Resolved LUMBAGO [M54.5] 01/14/2009 Metacarpal bone fracture [S62.309A] 02/25/2011 ADD (attention deficit disorder) [F98.8] 04/22/2013 Supervision of normal first [Z34.00] 04/09/2014 Rh negative status during , antepartum*07/17/2014 0 12/12/2014 Active labor [OUP2643] 10/24/2014 12/12/2014 Supervision of other normal , antepart*02/28/2017 0 03/14/2019 Rh negative state in antepartum period [O26.899*02/28/2017 0 10/08/2017 Chlamydia infection affecting [O98.81*03/02/2017 0 03/14/2019 More... GBS (group B Streptococcus carrier), +RV cultur*09/09/2017 0 10/08/2017 Multigravida in third trimester [Z34.83] 10/07/2017 10/08/19 18 Normal labor [O80, Z37.9] 10/07/2017 10/08/2017 41 weeks gestation of [Z3A.41] 10/07/2017 10/08/19 18 Vaginal delivery [O80] 10/07/2017 01/09/2018 IUD (intrauterine device) in place [Z97.5] More... Prescriptions ordered this encounter Disp Refills Start End GRISEOFULVIN ULTRAMICROSIZE 250 MG T* 30 t* 1 10/05/201912/2019 Route: ORAL Sig: Take 1 tablet by mouth once daily. Medications Discontinued During This Encounter Griseofulvin Ultramicrosize 250 mg t* 30 t* 1 07/24/201910/05 Route: ORAL Sig: Take 1 tablet by mouth once daily. Disc: Reason for discontinue is not on file. Encounter Status:Closed by TRICIA MONCADA DO on 10/05/19 obsolete on 2019-07 OBSOLETE Refill ([facility]) Normal 07-24-[address] [facility] VANESSA BACON ([id number]) 1995 [facility] Time Provider Department ([id number]) 07/24/19 TRICIA MONCADA [facility] During your visit today, we recorded the following informati on about you: Allergies As of Date: 07/24/2019 (No Known Allergies) Date Reviewed: 04/15/2019 Reviewed by: Jonn Flores MD - Fully Assessed Reason for Visit: Refill Request [94] Prescriptions as of 07/24/2019 Sig: GRISEOFULVIN ULTRAMICROSIZE 2* Take 1 tablet by mouth once d * MIRENA INTRAUTERINE by INTRAUTERINE route. IBUPROFEN 600 MG TABLET Take 1 tablet by mouth every * Problem List As Of Date 07/24/2019 Noted Resolved LUMBAGO [M54.5] INVALID FOR* Metacarpal bone fracture [S62.309A] INVALID FOR* ADD (attention deficit disorder) [F98.8] INVALID FOR* Supervision of normal first [Z34.00] INVALID FOR*0 12/12/2014 Rh negative status during , antepartum*INVALID FOR* 12/12/2014 Active labor [HFG4709] INVALID FOR*12/12/2014 Supervision of other normal , antepart*INVALID FOR* 03/14/2019 Rh negative state in antepartum period [O26.899*INVALID FOR* 10/08/2017 Chlamydia infection affecting [O98.81*INVALID FOR* 03/14/2019 More... GBS (group B Streptococcus carrier), +RV cultur*INVALID FOR* 10/08/2017 Multigravida in third trimester [Z34.83] INVALID FOR* 018 Normal labor [O80, Z37.9] INVALID FOR*10/08/2017 41 weeks gestation of [Z3A.41] INVALID FOR* 018 Vaginal delivery [O80] INVALID FOR*01/09/2018 IUD (intrauterine device) in place [Z97.5] More... Encounter Status:Closed by TRICIA MONCADA DO on 07/24/19 OBSOLETE Refill ([facility]IM[facility]R) Normal 07-24-2019 Sujit dennis VANESSA Edwards ([id number]) 1995 [facility] Time Provider Department ([id number]) 07/24/19 TRICIA MONCADA [facility] During your visit today, we recorded the following informati on about you: Allergies As of Date: 07/24/2019 (No Known Allergies) Date Reviewed: 04/15/2019 Reviewed by: Jonn Flores MD - Fully Assessed Reason for Visit: Refill Request [94] Order(s):Griseofulvin Ultramicrosize 250 mg tabTake 1 tablet by mouth once daily.Disp: 30 tabletRfl: 1 Prescriptions as of 07/24/2019 Sig: GRISEOFULVIN ULTRAMICROSIZE 2* Take 1 tablet by mouth once d * MIRENA INTRAUTERINE by INTRAUTERINE route. IBUPROFEN 600 MG TABLET Take 1 tablet by mouth every * Problem List As Of Date 07/24/2019 Noted Resolved LUMBAGO [M54.5] INVALID FOR* Metacarpal bone fracture [S62.309A] INVALID FOR* ADD (attention deficit disorder) [F98.8] INVALID FOR* Supervision of normal first [Z34.00] INVALID FOR*0 12/12/2014 Rh negative status during , antepartum*INVALID FOR* 12/12/2014 Active labor [WOC5346] INVALID FOR*12/12/2014 Supervision of other normal , antepart*INVALID FOR* 03/14/2019 Rh negative state in antepartum period [O26.899*INVALID FOR* 10/08/2017 Chlamydia infection affecting [O98.81*INVALID FOR* 03/14/2019 More... GBS (group B Streptococcus carrier), +RV cultur*INVALID FOR* 10/08/2017 Multigravida in third trimester [Z34.83] INVALID FOR* 018 Normal labor [O80, Z37.9] INVALID FOR*10/08/2017 41 weeks gestation of [Z3A.41] INVALID FOR* 018 Vaginal delivery [O80] INVALID FOR*01/09/2018 IUD (intrauterine device) in place [Z97.5] More... Prescriptions ordered this encounter Disp Refills Start End GRISEOFULVIN ULTRAMICROSIZE 250 MG T* 30 t* 1 07/24/2019 Route: ORAL Sig: Take 1 tablet by mouth once daily. Medications Discontinued During This Encounter Griseofulvin Ultramicrosize 250 mg t* 30 t* 1 07/23/2019 Route: ORAL Sig: Take 1 tablet by mouth once daily. Disc: Reason for discontinue is not on file. Encounter Status:Closed by TRICIA MONCADA DO on 07/24/19 obsolete on 2019-07 OBSOLETE Refill ([facility]) Normal 07-23-2019 [facility] ([id number]) 1995 [place] Date Time Provider Department ([id number]) 07/23/19 TRICIA MONCADA [facility] During your visit today, we recorded the following informati on about you: Allergies As of Date: 07/23/2019 (No Known Allergies) Date Reviewed: 04/15/2019 Reviewed by: Jonn Flores MD - Fully Assessed Reason for Visit: Refill Request [94] Order(s):Griseofulvin Ultramicrosize 250 mg tabTake 1 tablet by mouth once daily.Disp: 30 tabletRfl: 1 Prescriptions as of 07/23/2019 Sig: GRISEOFULVIN ULTRAMICROSIZE 2* Take 1 tablet by mouth once d * MIRENA INTRAUTERINE by INTRAUTERINE route. IBUPROFEN 600 MG TABLET Take 1 tablet by mouth every * Problem List As Of Date 07/23/2019 Noted Resolved LUMBAGO [M54.5] INVALID FOR* Metacarpal bone fracture [S62.309A] INVALID FOR* ADD (attention deficit disorder) [F98.8] INVALID FOR* Supervision of normal first [Z34.00] INVALID FOR*0 12/12/2014 Rh negative status during , antepartum*INVALID FOR* 12/12/2014 Active labor [LJT5742] INVALID FOR*12/12/2014 Supervision of other normal , antepart*INVALID FOR* 03/14/2019 Rh negative state in antepartum period [O26.899*INVALID FOR* 10/08/2017 Chlamydia infection affecting [O98.81*INVALID FOR* 03/14/2019 More... GBS (group B Streptococcus carrier), +RV cultur*INVALID FOR* 10/08/2017 Multigravida in third trimester [Z34.83] INVALID FOR* 018 Normal labor [O80, Z37.9] INVALID FOR*10/08/2017 41 weeks gestation of [Z3A.41] INVALID FOR* 018 Vaginal delivery [O80] INVALID FOR*01/09/2018 IUD (intrauterine device) in place [Z97.5] More... Prescriptions ordered this encounter Disp Refills Start End GRISEOFULVIN ULTRAMICROSIZE 250 MG T* 30 t* 1 07/23/2019 Route: ORAL Sig: Take 1 tablet by mouth once daily. Encounter Status:Closed by TRICIA MONCADA DO on 07/23/19 progress on 2019-04 PROGRESS HNO ID: [id number] Normal 04-15-2019 [facility] Author: Jonn Flores MD [place] ([id number]) Service: ? Author Type: Physician Type: Progress Notes Filed: 04/15/2019 2:30 PM Note Text: Vanessa Bacon is a 23 year old female S/P an IUD insertion last week. Since that time, she feels like her strings are out AND ca using a lot of irritaiton- she wants her strings cut (called Monday afterno on in a lot of pain, states felt 'irritated' all weekend). PHYSICAL EXAM: SPECULUM EXAM: external genitalia normal, normal Bartholin's glands, urethra, [place]'s glands, no vulvar lesions, no cervical lesi ons, normal discharge, IUD string is well visualized and of normal lengt h, however small amount trimmed of length (they were NOT visible until speculum placed AND did seem to be already wrapping around cervix) ASSESSMENT / PLAN: 1. Normal IUD placement, per patient request strings trimmed (minimal length removed given they appear to be appropriately trimmed AND already wrapping around cervix) Follow up for routine string check in . Jonn Flores MD cnov on 2019-04-15 CNOV Office Visit (OBGMEM) Normal 04-15-20 [place] [facility] VANESSA BACON ([id number]) 1995 [facility] Date Time Provider Department ([id number]) 04/15/19 1:15 PM JONN FLORES OBEM During your visit today, we recorded the following informati on about you: Blood pressure Weight 108/74 93.4 kg Jonn Flores MD, MD 04/15/2019 2:30 PM Signed Vanessa Bacon is a 23 year old female S/P an IUD inse rtion last week. Since that time, she feels like he r strings are out AND causing a lot of irritaiton- she wants her strings cut (called Monday afterno on in a lot of pain, states felt 'irritated' all weekend). PHYSICAL EXAM: SPECULUM EXAM: external genitalia normal, normal Bartholin's glands, urethra, [place]'s glands, no vulvar lesions, no cervical l esions, normal discharge, IUD string is well visualized an d of normal length, however small amount trimmed of length (they were NOT visible until spec ulum placed AND did seem to be already wrapping around cervix) ASSESSMENT / PLAN: 1. Normal IUD placement, per patient request strings t rimmed (minimal length removed given they appear to be appropriately trimmed AND already wrapping around cervix) Follow up for routine string check in 1m. Jonn Flores MD Referring Provider: SELF [[id number]] Allergies As of Date: 04/15/2019 (No Known Allergies) Date Reviewed: 04/15/2019 Reviewed by: Jonn Flores MD - Fully Assessed Reason for Visit: Follow Up [171] Primary Visit Diagnosis:Surveillance of previously prescribe d intrauterine contraceptive device [Z30.431] Prescriptions as of 04/15/2019 Sig: MIRENA INTRAUTERINE by INTRAUTERINE route. IBUPROFEN 600 MG TABLET Take 1 tablet by mouth every * Problem List As Of Date 04/15/2019 Noted Resolved LUMBAGO [M54.5] INVALID FOR* Metacarpal bone fracture [S62.309A] INVALID FOR* ADD (attention deficit disorder) [F98.8] INVALID FOR* Supervision of normal first [Z34.00] INVALID FOR*0 12/12/2014 Rh negative status during , antepartum*INVALID FOR* 12/12/2014 Active labor [UVB9920] INVALID FOR*12/12/2014 Supervision of other normal , antepart*INVALID FOR* 03/14/2019 Rh negative state in antepartum period [O26.899*INVALID FOR* 10/08/2017 Chlamydia infection affecting [O98.81*INVALID FOR* 03/14/2019 More... GBS (group B Streptococcus carrier), +RV cultur*INVALID FOR* 10/08/2017 Multigravida in third trimester [Z34.83] INVALID FOR* 018 Normal labor [O80, Z37.9] INVALID FOR*10/08/2017 41 weeks gestation of [Z3A.41] INVALID FOR* 018 Vaginal delivery [O80] INVALID FOR*01/09/2018 IUD (intrauterine device) in place [Z97.5] More... Disposition: Return in 1 year (on 04/15/2020) for Annual Exam . Follow-up and Disposition History Recorded Encounter Status:Closed by JONN FLORES MD on 04/15/19 progress on 2019-04 PROGRESS HNO ID: [id number] Normal 04-11-2019 [facility] Author: Jonn Flores MD [place] ([id number]) Service: ? Author Type: Physician Type: Progress Notes Filed: 04/11/2019 5:46 PM Note Text: Vanessa Bacon presents today for IUD insertion for contrace ption, dysmenorrhea, menstrual dysfunction. Patient's last menstrual period was 03/31/2019. GC/chlamydia: Negative on 03/14/19 test: negative Side effects including irregular bleeding were discussed wit h the patient. She understands that it should be removed in 5 years or soon er if she desires a . IUD source: office provided IUD lot #: [id number] Exp date: 07/22 UNIVERSAL PROTOCOL / SAFETY CHECKLIST Procedure to be performed: Insertion Mirena IUD Sign in Communication: Completed Time Out: Team Confirms the Correct Patient, Correct Procedu re, Correct Site and Site Marking, Correct Position (if applicable), Pre p and Dry Time (if applicable). Time: 1142 Affirmation of Time Out: YES Sign Out Discussion: Completed Jonn Flores MD The uter us sounded to 8 cm and the uterus is Anteverted.. After prepping the cervix with betadine and using sterile technique, the Mi [place]akota IUD was inserted without difficulty and the string was cut to ~2-3cm from the external os of the cervix. Patient tolerated procedure well. PLAN: Patient was advised to observe for signs and symptoms of infection including but not limited to fever, malodorous vaginal disch arge and/or pain. She was told to check the string monthly for accurate placement. Bleeding expectations were reviewed. Follow up in one month. Jonn Flores MD cnov on 2019-04-11 CNOV Office Visit (OBGMEM) Normal 04-11-20 [place] VANESSA Edwards ([id number]) 1995 [facility] Date Time Provider Department ([id number]) 04/11/19 11:15 AM JONN FLORES During your visit today, we recorded the following informati on about you: Blood pressure Weight Last Period 110/62 93.8 kg 03/31/19 Jonn Flores MD, MD 04/11/2019 5:46 PM Signed Vanessa Bacon presents today for IUD insertion for contrace ption, dysmenorrhea, menstrual dysfunction. Patient's last menstrual period was 03/31/2019. GC/chlamydia: Negative on 03/14/19 test: negative Side effects including irregular bleedin g were discussed with the patient. She understands that it should be removed in 5 years or sooner if she desires a . IUD source: office provided IUD lot #: [id number] Exp date: 07/22 UNIVERSAL PROTOCOL / SAFETY CHECKLIST Procedure to be performed: Insertion Mirena IUD Sign in Communication: Completed Time Out: Team Confirms the Correct Patient, Correct P rocedure, Correct Site and Site Marking, Correct Position (if applicable), Prep and Dry Time (if applicable). Time: 1142 Affirmation of Time Out: YES Sign Out Discussion: Completed Jonn Flores MD The uterus sounded to 8 cm and the uterus is Anteverte d.. After prepping the cervix with betadine and using sterile technique , the Mirena IUD was inserted without difficulty and the s tring was cut to ~2-3cm from the external os of the cervix. Patient tolerated procedure well. PLAN: Patient was advised to observe for signs and symptoms of infection including but not limited to fever, malodorous v aginal discharge and/or pain. She was told to check the string monthly for accurate placem ent. Bleeding expectations were reviewed. Follow up in one month. Jonn MD Jonn Kunz MD, MD 04/11/2019 11:48 AM Signed POST IUD INSTRUCTIONS You may have irregular bleeding during the first 3 months of use. You may have mild-severe cramping for the next 4 8 hours. You may use over the counter medication (Motrin, Tylenol) as needed. Your IUD must be removed or replaced in 3 years if you have a Trish, 5 years if you have a Mirena or Kyleena and 10 years if you have a Para marcelle. Call my office for signs/symptoms of inf ection such as severe cramping, fever, or unusual bleeding. Check for string placement as instructed by your doctor. If you have any additional questions, please contact the off ice. Referring Provider: JONN FLORES [[id number]] Allergies As of Date: 04/11/2019 (No Known Allergies) Date Reviewed: 04/11/2019 Reviewed by: Jonn Flores MD - Fully Assessed Reason for Visit: Established Patient [175] Cmt: Mirena IUD Insertion Of IUD [291] Reason For Visit History Recorded Primary Visit Diagnosis:Encounter for IUD insertion [Z30.430 ] Other Visit Diagnosis: examination or test, pregnan cy unconfirmed [Z32.00] Order(s):HCG QUAL UR B/O [[id number]] Order #: [id number] INSERT INTRAUTERINE DEVICE [[id number]] Order #: [id number] [] levonorgestrel 20 mcg/24 hours (5 yrs) 52 mg 1 Eac h intrauterine device (MIRENA)Disp: Rfl: Prescriptions as of 04/11/2019 Sig: MIRENA INTRAUTERINE by INTRAUTERINE route. IBUPROFEN 600 MG TABLET Take 1 tablet by mouth every * Problem List As Of Date 04/11/2019 Noted Resolved LUMBAGO [M54.5] INVALID FOR* Metacarpal bone fracture [S62.309A] INVALID FOR* ADD (attention deficit disorder) [F98.8] INVALID FOR* Supervision of normal first [Z34.00] INVALID FOR*0 12/12/2014 Rh negative status during , antepartum*INVALID FOR* 12/12/2014 Active labor [LBO9821] INVALID FOR*12/12/2014 Supervision of other normal , antepart*INVALID FOR* 03/14/2019 Rh negative state in antepartum period [O26.899*INVALID FOR* 10/08/2017 Chlamydia infection affecting [O98.81*INVALID FOR* 03/14/2019 More... GBS (group B Streptococcus carrier), +RV cultur*INVALID FOR* 10/08/2017 Multigravida in third trimester [Z34.83] INVALID FOR* 018 Normal labor [O80, Z37.9] INVALID FOR*10/08/2017 41 weeks gestation of [Z3A.41] INVALID FOR* 018 Vaginal delivery [O80] INVALID FOR*01/09/2018 IUD (intrauterine device) in place [Z97.5] More... Other instructions from your clinician: POST IUD INSTRUCTIONS You may have irregular bleeding during the first 3 months of use. You may have mild-severe cramping for the next 48 hours. You may use over the counter medication (Motrin, Tylenol) as needed. Your IUD must be removed or replaced in 3 years if you have a Trish, 5 years if you have a Mirena or Kyleena and 10 years if you purdy ve a Paragard. Call my office for signs/symptoms of infection such as sever e cramping, fever, or unusual bleeding. Check for string placement as instructed by your doctor. If you have any additional questions, please contact the off ice. Prescriptions ordered this encounter Disp Refills Start End LEVONORGESTREL 20 MCG/24 HOURS (5 YR* 04/11/2019 04/11/2019 Route: INTRAUTERINE Medications Discontinued During This Encounter Norethindrone, Contraceptive, (JUSTINE* 1 Pa* 1 03/16/201904/11 Route: ORAL Sig: Take 1 tablet by mouth once daily. Disc: Duplicate Entry norgestimate 0.25 mg-ethinyl estradi* 1 Pa* 12 03/14/201904/01 Route: ORAL Sig: Take 1 tablet by mouth once daily. Disc: Duplicate Entry Disposition: Return in about 1 month (around 05/12/2019), or if symptoms worsen or fail to improve, for string check. Follow-up and Disposition History Recorded Encounter Status:Closed by OJNN FLORES MD on 04/11/19 obsolete on 2019-03 OBSOLETE Refill ([facility]) Normal 03-16-2019 Sujit dennis Martina BACONVANESSA ([id number]) 1995 [facility] [place] Date Time Provider Department ([id number]) 03/16/19 TRICIA MONCADA [facility] During your visit today, we recorded the following informati on about you: Tricia Moncada DO 03/16/2019 8:25 AM Signed Patient's request for medication is as follows Signed Prescriptions Disp Refills Norethindrone, Contraceptive, (SHAROBEL) 0.35 mg tablet 1 Pa ckage 1 Sig: Take 1 tablet by mouth once daily. TRIXIE: No Authorizing Provider: TRICIA MONCADA Order entered - Tricia Moncada DO Allergies As of Date: 03/16/2019 (No Known Allergies) Date Reviewed: 03/14/2019 Reviewed by: Jonn Flores MD - Fully Assessed Reason for Visit: Refill Request [94] Order(s):Norethindrone, Contraceptive, (SHAROBEL ) 0.35 mg tabletTake 1 tablet by mouth once daily.Disp: 1 PackageRfl: 1 Prescriptions as of 03/16/2019 Sig: NORETHINDRONE (CONTRACEPTIVE)* Take 1 tablet by mouth once d * NORGESTIMATE 0.25 MG-ETHINYL * Take 1 tablet by mouth once d * IBUPROFEN 600 MG TABLET Take 1 tablet by mouth every * Problem List As Of Date 03/16/2019 Noted Resolved LUMBAGO [M54.5] INVALID FOR* Metacarpal bone fracture [S62.309A] INVALID FOR* ADD (attention deficit disorder) [F98.8] INVALID FOR* Supervision of normal first [Z34.00] INVALID FOR*0 12/12/2014 Rh negative status during , antepartum*INVALID FOR* 12/12/2014 Active labor [HDY0773] INVALID FOR*12/12/2014 Supervision of other normal , antepart*INVALID FOR* 03/14/2019 Rh negative state in antepartum period [O26.899*INVALID FOR* 10/08/2017 Chlamydia infection affecting [O98.81*INVALID FOR* 03/14/2019 More... GBS (group B Streptococcus carrier), +RV cultur*INVALID FOR* 10/08/2017 Multigravida in third trimester [Z34.83] INVALID FOR* 018 Normal labor [O80, Z37.9] INVALID FOR*10/08/2017 41 weeks gestation of [Z3A.41] INVALID FOR* 018 Vaginal delivery [O80] INVALID FOR*01/09/2018 Prescriptions ordered this encounter Disp Refills Start End NORETHINDRONE (CONTRACEPTIVE) 0.35 M* 1 Pa* 1 03/16/2019 Route: ORAL Sig: Take 1 tablet by mouth once daily. Encounter Status:Closed by TRICIA MONCADA DO on 03/16/19 OBSOLETE Refill ([facility]) Normal 03-16-[address] [facility] VANESSA BACON ([id number]) 1995 [facility] Time Provider Department ([id number]) 03/16/19 TRICIA MONCADA [facility] During your visit today, we recorded the following informati on about you: Allergies As of Date: 03/16/2019 (No Known Allergies) Date Reviewed: 03/14/2019 Reviewed by: Jonn Flores MD - Fully Assessed Reason for Visit: Refill Request [94] Prescriptions as of 03/16/2019 Sig: NORGESTIMATE 0.25 MG-ETHINYL * Take 1 tablet by mouth once d * IBUPROFEN 600 MG TABLET Take 1 tablet by mouth every * Problem List As Of Date 03/16/2019 Noted Resolved LUMBAGO [M54.5] INVALID FOR* Metacarpal bone fracture [S62.309A] INVALID FOR* ADD (attention deficit disorder) [F98.8] INVALID FOR* Supervision of normal first [Z34.00] INVALID FOR*0 12/12/2014 Rh negative status during , antepartum*INVALID FOR* 12/12/2014 Active labor [TNJ5081] INVALID FOR*12/12/2014 Supervision of other normal , antepart*INVALID FOR* 03/14/2019 Rh negative state in antepartum period [O26.899*INVALID FOR* 10/08/2017 Chlamydia infection affecting [O98.81*INVALID FOR* 03/14/2019 More... GBS (group B Streptococcus carrier), +RV cultur*INVALID FOR* 10/08/2017 Multigravida in third trimester [Z34.83] INVALID FOR* 018 Normal labor [O80, Z37.9] INVALID FOR*10/08/2017 41 weeks gestation of [Z3A.41] INVALID FOR* 018 Vaginal delivery [O80] INVALID FOR*01/09/2018 Encounter Status:Closed by TRICIA MONCADA DO on 03/16/19 progress on 2019-03 PROGRESS HNO ID: [id number] Normal 03-14-2019 [facility] Author: Jonn Flores MD [place] ([id number]) Service: ? Author Type: Physician Type: Progress Notes Filed: 03/14/2019 2:52 PM Note Text: Vanessa Bacon is a 23 year old who presents for her annual gynecologic exam with complaints, irregular bleeding. Darwin waldrop past history obtained/updated/reviewed with today's visit. Pt states there are no significant changes to her past medic al and surgical history. Event Marketing Coordinator offered: Patient declines. Menses: irregular- stopped breast feeding ~4m ago, continued mini-pill, has had irregular periods- sometimes every 2w, sometimes hea vy (discussed needs to change to combination OCP or consider IUD) Contraception: oral contraceptives HPV vaccine: Yes Last Pap: 2017 normal HPV: negative History of abnormal pap: No Last mammogram: never Sexually active: Yes History of STDS: chlamydia OB History T2 L2 SAB0 TAB0 Ectopic0 Multiple0 Live Births2 Comment: Menarche 12/2007 PAST MEDICAL HISTORY Diagnosis Date - ADD (attention deficit disorder) PAST SURGICAL HISTORY Procedure Laterality Date - TONSILLECTOMY HX - TOOTH EXTRACTION x4 wisdom teeth FAMILY HISTORY Problem Relation Age of Onset - other (tumor removed from heart) Paternal Grandmother - other (stomach cancer) Paternal Grandfather - No Family History No Family History female/colon/prostate CA - Diabetes No Family History paternal side SOCIAL HISTORY Social History Tobacco Use - Smoking status: Never Smoker - Smokeless tobacco: Never Used Substance Use Topics - Alcohol use: No - Drug use: No REVIEW OF SYSTEMS Abdomen: No abdominal pain, nausea, vomiting, diarrhea, or c onstipation. No bloating, early satiety, indigestion, or increased flatul ence. Bladder: No dysuria, gross hematuria, urinary frequency, or incontinence; has nored more issues with urgency since daughter born Breast: No breast lumps, nipple d/c, overlying skin changes, redness or skin retraction and no SBE. Allergies and current medication updated:Yes EXAM: BP 134/90 Wt 212 lb 12.8 oz (96.5kg) LMP 03/02/ 9 GENERAL: pleasant, female in no apparent distress HEENT: Normocephalic, atraumatic, mucus membranes moist and no lesions NECK: Supple, full range of motion, no adenopathy and thyroi d normal DERMATOLOGY: Normal, without lesions, non-icteric and non-hi rsute BREAST: soft, non-tender, symmetric, no dominant mass, ian l nipple-areolar complex, no lymphadenopathy and no nipple dis charge CHEST: Clear to auscultation Normal inspiratory effort Regul ar rate and rhythm ABDOMEN: soft, non-tender and no masses PELVIC: external genitalia normal, normal Bartholin's glands , urethra, [place]'s glands, no vulvar lesions, no cervical lesions, phys iologic discharge present, normal appearing perineal body and perian al region BIMANUAL: uterus normal size, shape and consistency, no adne xal masses and non-tender RECTOVAGINAL: deferred. NEURO: alert and oriented x3,exam grossly non-focal EXTREMITIES: normal ASSESSMENT/PLAN: 1) Health maintenance: Pap/HPV up to date. Mammogram starting age 40. Nutrition, exercise and routine health maintenance exams rev iewed. Calcium/Vitamin D supplementation information provided. 2) Contraception: oral contraceptives and condoms. Contracep tive options reviewed and information provided. Aware of need f or FC for IUD AND timing of placement. 3) STD screening: Accepted STD check for Gonorrhea and Chlam ydia. 4) Follow up one year or sooner as needed 5) Pt made aware that we will notify of Abnormal results onl y. I will use her MyChart as needed for results, she may contact offic e to get any results at her convenience. The following approved medication requests have been transmi tted electronically. Signed Prescriptions Disp Refills norgestimate 0.25 mg-ethinyl estradiol 35 mcg (SPRINTEC) 0.2 5-35 mg-mcg per tablet 1 Package 12 Sig: Take 1 tablet by mouth once daily. Electronically submitted to her pharmacy ([facility]). Jonn Flores MD gc/chlamydia amplif on 2019-03-14 Chlamydia Amplif Negative for Chlamydia Normal 03-14-2019 [facility] trachomatis by Sudeep kaur ([id number]) amplification. Comment: Performed By: #### GCCT #### [facility] [address] [facility] [place] [id number] GC Amplification Negative for Neisseria Normal 03-14-2019 [facility] gonorrhoeae by Sudeep kaur ([id number]) amplification. Comment: Performed By: #### GCCT #### [facility] [address] [place] [address] [facility] [address] [place] [id number] GC/Chlam Amp Source Cervix Normal 03-14-2019 [facility] ([id number]) Comment: Performed By: #### GCCT #### [facility] [address] [place] [address] [facility] [address] [address] cnov on 2019-03-14 CNOV Office Visit (OBGMEM) Normal 03-14-20 19 [place] [facility] VANESSA BACON ([id number]) 1995 [facility] Date Time Provider Department ([id number]) 03/14/19 1:00 PM JONN FLORES During your visit today, we recorded the following informati on about you: Blood pressure Weight Last Period 134/90 96.5 kg 03/02/19 Jonn Flores MD, MD 03/14/2019 2:52 PM Signed Vanessa Bacon is a 23 year old who presents for her annual gynecologic exam with complaints, irregular bleeding. Thorough past hist ory obtained/updated/reviewed with today's visit. Pt states there are no significant changes to her past med ical and surgical history. Event Marketing Coordinator offered: Patient declines. Menses: irregular- stopped b reast feeding ~4m ago, continued mini-pill, has had irregular periods- sometimes every 2w, sometimes heavy (disc ussed needs to change to combination OCP or consider IUD) Contraception: oral contraceptives HPV vaccine: Yes Last Pap: 2017 normal HPV: negative History of abnormal pap: No Last mammogram: never Sexually active: Yes History of STDS: chlamydia OB History T2 L2 SAB0 TAB0 Ectopic0 Multiple0 Live Births2 Comment: Menarche 12/2007 PAST MEDICAL HISTORY Diagnosis Date - ADD (attention deficit disorder) PAST SURGICAL HISTORY Procedure Laterality Date - TONSILLECTOMY HX - TOOTH EXTRACTION x4 wisdom teeth FAMILY HISTORY Problem Relation Age of Onset - other (tumor removed from heart) Paternal Grandmother - other (stomach cancer) Paternal Grandfather - No Family History No Family History female/colon/prostate CA - Diabetes No Family History paternal side SOCIAL HISTORY Social History Tobacco Use - Smoking status: Never Smoker - Smokeless tobacco: Never Used Substance Use Topics - Alcohol use: No - Drug use: No REVIEW OF SYSTEMS Abdomen: No abdominal pain, nausea, vomiting, diarrhea, or constipation. No bloating, early satiety, indigestion, or increased flatulenc e. Bladder: No dysuria, gross hematuria, urinary fr equency, or incontinence; has nored more issues with urgency since daughter born Breast: No breast lumps, nipple d/c, overlying skin ch anges, redness or skin retraction and no SBE. Allergies and current medication updated:Yes EXAM: BP 134/90 Wt 212 lb 12.8 oz (96.5kg) LMP 9 GENERAL: pleasant, female in no apparent distress HEENT: Normocephalic, atraumatic, mucus membranes moist and no lesions NECK: Supple, full range of motion, no adenopathy and thyroi d normal DERMATOLOGY: Normal, without lesions, non-icteric and non-hi rsute BREAST: soft, non-tender, symmetric, no dominant mass, normal nipple-areolar complex, no lymphadenopathy and no nipple discharge CHEST: Clear to auscultation Normal insp iratory effort Regular rate and rhythm ABDOMEN: soft, non-tender and no masses PELVIC: external genitalia normal, ian l Bartholin's glands, urethra, [place]'s glands, no vulvar lesions, no cervical l esions, physiologic discharge present, normal appearing perineal body and perianal region BIMANUAL: uterus normal size, shape and consistency, no adne xal masses and non-tender RECTOVAGINAL: deferred. NEURO: alert and oriented x3,exam grossly non-focal EXTREMITIES: normal ASSESSMENT/PLAN: 1) Health maintenance: Pap/HPV up to date. Mammogram starting age 40. Nutrition, exercise and routine health maintenance exams rev iewed. Calcium/Vitamin D supplementation information provided. 2) Contraception: oral contraceptives and condoms. Contracep tive options reviewed and information provided. Aware of need for FC for IUD AND timing of placement. 3) STD screening: Accepted STD check for Gonorrhea and Chlam ydia. 4) Follow up one year or sooner as needed 5) Pt made aware that we will notify of Abnormal results only. I will use her MyChart as needed for result s, she may contact office to get any results at her convenience. The following approved medic ation requests have been transmitted electronically. Signed Prescriptions Disp Refills norgestimate 0.25 mg-ethinyl estradiol 35 mcg (SPRINTEC) 0 .25-35 mg-mcg per tablet 1 Package 12 Sig: Take 1 tablet by mouth once daily. Electronically submitted to her pharmacy ([facility]). MD Jonn Mckeon MD, MD 03/14/2019 1:25 PM Signed ACOG Screening Guidelines (2015) The following health screening schedule is recommended by the [place] [employer] (ACOG). Some of these tests may be ordered or performed by your primary care doctor. Pap test screening The pap test looks at cells on the cervix (the o pening from the vagina to the uterus) to look for cancer or pre-cancerous mayorga ges. These changes are caused by the human papillomavirus (HPV). Studies estimate that yi f of all women will test positive for this virus within 3 years of starting sexual activity. For young women with a ian l immune system, 90% of HPV infections will resolve within 2 years. There is a vaccine available against s ome forms of HPV. This is recommended for girls and women age 9-26 and is a serie s of 3 injections over 6 months. Because this vaccine does not protect against all HPV types which can cause cervical cancer, women w ho received the vaccine still need pap tests. Pap smear screening should be started at age 21. The p ap test should be done every 3 years from age 21-29. From age 30-65, pap smea rs can be done every 5 years if HPV test is negative or every 3 years if HPV testing is not done. For women over the age of 65, ACOG recommend s against screening women who have had adequate prior screening and are not otherwise at high risk for cervical cancer. Women who have had a hysterectomy also do not need routine pap smear screening unless the pap smear was done for a cervical cancer or moderate to severe dysplasia. Breast cancer screening Mammogram should be performe d every 1-2 years starting at age 40 and every year starting at age 50. Screening may be started earlier dependi ng on family history. Cholesterol screening Lipid panel (cholesterol test) should be checked every 5 years starting at age 45. Diabetes screening Fasting glucose (blood sugar) test should be per formed every 3 years starting at age 45. Colorectal cancer screening Starting at age 50, women sh ould have a screening colonoscopy at least every 10 years. Screening may be started earlier depending on family history. Thyroid screening Thyroid function test (TSH) should be checked every 5 years starting at age 50. Bone mineral density screening All postmenopausal women age 65 and over and postmenopausa l women with risk factors for osteoporosis should have a bone mineral densit y test performed. Risk factors include race, family hist ory of osteoporosis, personal history of fractures, poor nutrition, smoking, heavy alcohol use, early menopause, low calcium intake and low body weigh t. Certain medical conditions and long-term use of some medications may also increase risk . Calcium and Vitamin D Supplementation (from the National Institutes of Health Office of Dietary Supplements 2011) Calcium is required by the body for blood vessel, muscle, hormone and nerve functioning. Most of the body's calcium is stored in the bones and teeth where it supports structure and function. Bone is continuously bro sammie down and reformed. When bone breakdown exceeds formation, especially in postmenopausal women, bone loss can increase the risk of osteoporosis and f ractures. In addition to low calcium intake, women who smoke, have a fami ly history of osteoporosis, are thin, or , or who take ce rtain medications such as cancer chemotherapy, seizure mediations and steroids are at increased risk of osteoporosis. The calcium requirements in women change with ag e. The National Institutes of Health (NIH) recommends: 1000mg elemental calcium for premenopausal women age 19-50 1200mg elemental calcium for postmenopausal women and all wo men over 50 Milk, yogurt, and cheese are rich natura l sources of calcium and are the major food contributors in the [facility]. For example, 8oz of milk (whole, lowfat or skim) contains about 300mg calcium, 8oz of yo gurt contains 415mg. Nondairy sources include salmon and sardines and vegetables, davidson ch as Algerian cabbage, kale, and broccoli. Foods fortified with calcium include m any fruit juices, tofu and cereals. For more food calcium content information, visit http://ods.od.nih.gov/factsheets/calcium. Calcium supplements come in several different forms. Pallavi r that the recommendations are for millgrams (mg) of elemen saul calcium which may be less than the total weight of the supplement. The amount of cookie mental calcium is required to be printed on the label. Calcium car bonate is the least expensive form. It must be taken on a full stomach to be properly absorbed. Some patients may experience gas or constipation. Calcium phos phate and calcium citrate may be taken either with or with out food and tend to have less side effects but are generally more expensive. Because of its ability to neutralize stomach aci d, calcium carbonate is found in some epip-omh-vueshcc antacid products, such as Tums? and Rolaids?. Depending on its strength, each chewable pill or softchew provides 200 to 400 mg of elemental calcium. The percentage of calcium absorbed depends on the total am ount of elemental calcium consumed at one time . Absorption is highest in doses <500mg. So a woman who takes 1,000mg/day of calcium from supplements should s plit the dose and take 500mg at two separate times during the day. Too much calcium can cause kidney stones, constipation , difficulty absorbing other nutrients and calcium buildup in blood vessels. Women under 50 should not exceed 2500mg/day (2000mg/day for women over 50) of calcium from food and supplements. Excessive alcohol and caffeine intake can inhibit absorption of calcium. Calcium can reduce the absor ption of some medications if taken at the same time of day (bisphosphonates, thyroid medication, Phenytoin and o ther seizure medications, some antibiotics and iron supplements). Vitamin D promotes calcium absorption in the gut and maintains adequate blood levels of calcium and phosphate for normal bone growth and bone remodeling. Vitamin D also helps regulate cell growth as wel l as nerve, muscle and immune system function. Vitamin D is produced in the sk in as a result of ultraviolet sunlight rays and must be altered in the liver and kidney to become its active form. Recommended intake according to the National Institutes of H ealth is 600 International Units (IU) for girls and women ages 1-70 and 800 IU for women over 70. Very few foods in nature contain vitamin D. T he flesh of fatty fish (such as salmon, tuna, and mackerel) and fish liver oils a re among the best sources. Small amounts of vitamin D are found in beef liver, cheese, mushrooms and egg yolks. Most people meet at least some of their vitamin D needs through exposure to sunlight. Season, time of day, length of d ay, cloud cover, smog, skin melanin content, and sunscreen are among the factors th at affect UV radiation exposure and vitamin D synthesis. Desp ite the importance of the sun for vitamin D synthesis, it is prudent to limit exposu re of skin to sunlight and avoid tanning beds. UV radiation is a carcinogen r esponsible for most of the estimated 1.5 million skin cancers that occur annually i n the [place]. Lifetime cumulative UV damage to skin is also respon sible for some age-associated dryness and other cosmetic changes. In supplements and fortified foods, vitamin D is available in two forms, D2 (ergocalciferol) and D3 (cholecalciferol). The two are equ ivalent at normal supplement doses. For women who require high supplement dose s because of vitamin D deficiency, D3 may work better to raise blood leve ls. Some medications can prevent proper absorption of Vitamin D. Thes e include laxatives, corticosteroids l bianca prednisone, the seizure drugs phenobarbital and phenytoin, the weight-loss drug orlistat ( Xenical? and Eleazar TM) and the cholesterol-lowering drug cholestyramine (Questran?, LoChole st?, and Prevalite?). Talk to your do ctor about adjusting your recommended daily vitamin D dosage if you take these medications. You should not exceed 4000 mg of vitamin D supplementation d aily unless specifically prescribed by your doctor. Referring Provider: SELF [200] Allergies As of Date: 03/14/2019 (No Known Allergies) Date Reviewed: 03/14/2019 Reviewed by: Jonn Flores MD - Fully Assessed Reason for Visit: Well Woman [[id number]] Cmt: Annual Primary Visit Diagnosis:Encounter for gynecological examinat ion (general) (routine) without abnormal findings [Z01.419] Other Visit Diagnosis:Screen for STD (sexually transmitted disease) [Z11.3] Order(s):norgestimate 0.25 mg-ethinyl estradiol 35 mcg (SPRI NTEC) 0.25-35 mg-mcg per tabletTake 1 tablet by mouth once daily.Disp: 1 PackageRfl: 12 GC/CHLAMYDIA DNA DET [SQGCCAMP] Order #: [id number]. #:[id number] Prescriptions as of 03/14/2019 Sig: IBUPROFEN 600 MG TABLET Take 1 tablet by mouth every * NORGESTIMATE 0.25 MG-ETHINYL * Take 1 tablet by mouth once d * Problem List As Of Date 03/14/2019 Noted Resolved LUMBAGO [M54.5] INVALID FOR* Metacarpal bone fracture [S62.309A] INVALID FOR* ADD (attention deficit disorder) [F98.8] INVALID FOR* Supervision of normal first [Z34.00] INVALID FOR*0 12/12/2014 Rh negative status during , antepartum*INVALID FOR* 12/12/2014 Active labor [CBO8062] INVALID FOR*12/12/2014 Supervision of other normal , antepart*INVALID FOR* 03/14/2019 Rh negative state in antepartum period [O26.899*INVALID FOR* 10/08/2017 Chlamydia infection affecting [O98.81*INVALID FOR* 03/14/2019 More... GBS (group B Streptococcus carrier), +RV cultur*INVALID FOR* 10/08/2017 Multigravida in third trimester [Z34.83] INVALID FOR* 018 Normal labor [O80, Z37.9] INVALID FOR*10/08/2017 41 weeks gestation of [Z3A.41] INVALID FOR* 018 Vaginal delivery [O80] INVALID FOR*01/09/2018 Other instructions from your clinician: ACOG Screening Guidelines (2015) The following health screening schedule is recommended by chitra littlejohn [employer] [place] [employer] (ACOG). Some of these t ests may be ordered or performed by your primary care doctor. Pap test screening The pap test looks at cells on the cervix (the opening from the vagina to the uterus) to look for cancer or pre-cancerous changes. The se changes are caused by the human papillomavirus (HPV). Studies estima te that half of all women will test positive for this virus within 3 year s of starting sexual activity. For young women with a normal immune system , 90% of HPV infections will resolve within 2 years. There is a vaccine a vailable against some forms of HPV. This is recommended for girls and women age 9-26 and is a series of 3 injections over 6 months. Because this vaccine does not protect against all HPV types which can cause cervi salo cancer, women who received the vaccine still need pap tests. Pap smear screening should be started at age 21. The pap justus t should be done every 3 years from age 21-29. From age 30-65, pap smear s can be done every 5 years if HPV test is negative or every 3 years if HP V testing is not done. For women over the age of 65, ACOG recommends agai nst screening women who have had adequate prior screening and are not othe rwise at high risk for cervical cancer. Women who have had a hysterectomy also do not need routine pap smear screening unless the pap smear was do ne for a cervical cancer or moderate to severe dysplasia. Breast cancer screening Mammogram should be performed every 1-2 years starting at ag e 40 and every year starting at age 50. Screening may be started earlier de pending on family history. Cholesterol screening Lipid panel (cholesterol test) should be checked every 5 yea rs starting at age 45. Diabetes screening Fasting glucose (blood sugar) test should be performed every 3 years starting at age 45. Colorectal cancer screening Starting at age 50, women should have a screening colonoscop y at least every 10 years. Screening may be started earlier depending o n family history. Thyroid screening Thyroid function test (TSH) should be checked every 5 years starting at age 50. Bone mineral density screening All postmenopausal women age 65 and over and postmenopausal women with risk factors for osteoporosis should have a bone mineral den sity test performed. Risk factors include race, family histo ry of osteoporosis, personal history of fractures, poor nutrition, smoking, heavy alcohol use, early menopause, low calcium intake and l ow body weight. Certain medical conditions and long-term use of some medications may also increase risk. Calcium and Vitamin D Supplementation (from the National [facility] Office of Dietary Supplements 2011) Calcium is required by the body for blood vessel, muscle, ho rmone and nerve functioning. Most of the body's calcium is stored in t he bones and teeth where it supports structure and function. Bone is cont inuously broken down and reformed. When bone breakdown exceeds format ion, especially in postmenopausal women, bone loss can increase t he risk of osteoporosis and fractures. In addition to low calcium intak e, women who smoke, have a family history of osteoporosis, are thin, Cauc or , or who take certain medications such as cancer chemot herapy, seizure mediations and steroids are at increased risk of ost eoporosis. The calcium requirements in women change with age. The [facility] Institutes of Health (NIH) recommends: 1000mg elemental calcium for premenopausal women age 19-50 1200mg elemental calcium for postmenopausal women and all wo men over 50 Milk, yogurt, and cheese are rich natural sources of calcium and are the major food contributors in the [place]. For example, 8 oz of milk (whole, lowfat or skim) contains about 300mg calcium, 8oz of yogurt contains 415mg. Nondairy sources include salmon and sardines and vegetables, such as Algerian cabbage, kale, and broccoli. Marcela ds fortified with calcium include many fruit juices, tofu and cereals. Fo r more food calcium content information, visit http://ods.od.nih.gov/factsheets/calcium. Calcium supplements come in several different forms. Pallavi r that the recommendations are for millgrams (mg) of elemental calcium which may be less than the total weight of the supplement. The amount of elemental calcium is required to be printed on the label. Calcium carb zainab is the least expensive form. It must be taken on a full stomach to be properly absorbed. Some patients may experience gas or constipation. Calcium phosphate and calcium citrate may be taken either with or wi thout food and tend to have less side effects but are generally more expens porfirio. Because of its ability to neutralize stomach acid, calcium c arbonate is found in some qujl-pdn-ingcask antacid products, such as Darío s? and Rolaids?. Depending on its strength, each chewable pill or s oftchew provides 200 to 400 mg of elemental calcium. The percentage of calcium absorbed depends on the total amou nt of elemental calcium consumed at one time. Absorption is highes t in doses <500mg. So a woman who takes 1,000mg/day of calcium from sup plements should split the dose and take 500mg at two separate times d uring the day. Too much calcium can cause kidney stones, constipation, diff iculty absorbing other nutrients and calcium buildup in blood vesse ls. Women under 50 should not exceed 2500mg/day (2000mg/day for women over 50) of calcium from food and supplements. Excessive alcohol and caffeine intake can inhibit absorption of calcium. Calcium can reduce the absorption of some medications if graciela en at the same time of day (bisphosphonates, thyroid medication, Phenytoin and other seizure medications, some antibiotics and iron supplements). Vitamin D promotes calcium absorption in the gut and maintai ns adequate blood levels of calcium and phosphate for normal bone growth and bone remodeling. Vitamin D also helps regulate cell growth as wel l as nerve, muscle and immune system function. Vitamin D is produced in the skin as a result of ultraviolet sunlight rays and must be altered in t he liver and kidney to become its active form. Recommended intake according to the National Institutes of H ealth is 600 International Units (IU) for girls and women ages 1-70 and 8 00 IU for women over 70. Very few foods in nature contain vitamin D. T he flesh of fatty fish (such as salmon, tuna, and mackerel) and fish vanita er oils are among the best sources. Small amounts of vitamin D are found in beef liver, cheese, mushrooms and egg yolks. Most people meet at least some of their vitamin D needs through exposure to sunlight. Season, time of day, length of day, cloud cover, smog, skin melanin content, and sunscreen are among the factors that affect UV radiation exposure and lorenzo min D synthesis. Despite the importance of the sun for vitamin D s ynthesis, it is prudent to limit exposure of skin to sunlight and avoid t anning beds. UV radiation is a carcinogen responsible for most of the est imated 1.5 million skin cancers that occur annually in the [place]. Lifetime cumulative UV damage to skin is also responsible for some ag e-associated dryness and other cosmetic changes. In supplements and fortified foods, vitamin D is available i n two forms, D2 (ergocalciferol) and D3 (cholecalciferol). The two are eq uivalent at normal supplement doses. For women who require high suppleme nt doses because of vitamin D deficiency, D3 may work better to raise blood levels. Some medications can prevent proper absorption of Vitamin D. These include laxatives, corticosteroids like prednisone, the seizure drug s phenobarbital and phenytoin, the weight-loss drug orlistat ( Xenical? and AlliTM) and the cholesterol-lowering drug cholestyramine (Qu estran?, LoCholest?, and Prevalite?). Talk to your doctor about adjus ting your recommended daily vitamin D dosage if you take these medicat ions. You should not exceed 4000 mg of vitamin D supplementation d aily unless specifically prescribed by your doctor. Prescriptions ordered this encounter Disp Refills Start End NORGESTIMATE 0.25 MG-ETHINYL ESTRADI* 1 Pa* 12 03/14/2019 Route: ORAL Sig: Take 1 tablet by mouth once daily. Medications Discontinued During This Encounter Norethindrone, Contraceptive, (ORTHO* 1 Pa* 12 01/19/201803/02 Route: ORAL Sig: Take 1 tablet by mouth once daily. Take at the same mark anthony e every day. Patient not taking: Reported on 03/14/2019 Disc: Reason for discontinue is not on file. 47/IRON/FOLATE 1/DHA (PNV-D* 03/14/2019 Class: Historical Med Route: ORAL Sig: Take by mouth. Disc: Reason for discontinue is not on file. Norethindrone, Contraceptive, (JUSTINE* 1 Pa* 1 12/25/201803/14 Class: Call Rx Route: ORAL Sig: Take 1 tablet by mouth once daily. Disc: Changing Therapy/Dosage Form Disposition: Return in 1 year (on 03/14/2020) for Annual Exam . Follow-up and Disposition History Recorded Encounter Status:Closed by JONN FLORES MD on 03/14/19 rh immune d workup on 2017-10-08 Rh Immune D Workup See Below Normal 10-08-2017 [facility] ([id number]) Comment: Result Comment: screen negative - give 1 vial of Rh Immune Globulin. Performed By: #### RHIMD ### #[place] [id number] progress on 2017-10 PROGRESS HNO ID: [id number]: Felicia Miranda (Res) LendeService: GynecologyAuthor Type: ResidentType: Progress Normal 10-08-2017 [place] NotesFiled: 10/08/2017 4:56 AMNote General Text: -----Attestation signed [facility] by Quang Walls at 018 1:29 PMI saw and evaluated the patient. Discussed with the resident and Center agree withresident's finding s and plan as documented in the resident's note.Possible discharge home ([id number]) today.Quang Walls MD --OBSTETRICSPOSTPARTUM PROGRESS NOTESERVICE DATE: J anuary 2017SERVICE TIME: 045SSESSMENT:21 year old female who is Day #1 status post Vaginal,Spontaneous Delivery delivery.1. Rh- /RI/Girl/breast; Rhogam per evaluation.2. H/o ADD- n ot on any medications3. Routine PP Care4. D/c per attendingPLAN:Routine care.SUBJECTIVE:P atient has no current complaints. Tolerating PO intake. Urinating withoutdifficulty. Pain well controlled with current regimen. Lochia decreasing.Ambulating without difficulty.OBJECTIVE:PHYSICA L EXAM:Heart: RR, S1, H6Iwmna: clear to auscultationAbdomen: Soft Bowel sounds present Fundus firm b elow umbilicusNon-distendedLAST VITALS:Pulse BP Resp O2 Sat Temp Pain 86 123/69 16 99 % 36.5 ?C (97.7 ?F) 10HT/WT/BMI:Height Weight BMI 162.6 cm (5' 4) 102.1 kg (225 lb) 38.62LABSDiagnostic tests re viewed for today's visit: Most recent labs and imagingresults.SIGNATURE: Sondra Gandhi DO PATIENT NAME: Vanessa BaconDATE: October 08, 2017 : 4:54 AM nursing prog on 201 05-02-07 NURSING PROG HNO ID: [id number]: Normal 0 10-08-2017 [place] [facility] RNService: NursingAuthor Type: ([id number]) Registered NurseType: Nursing Progress NoteFiled: 10/08/2017 7:29 PMNote Text:Pt belongings remained with pt until discharge with one exception. Ptstates My shoes are missing. I had them in labor and delivery and Idon't have them now. Pt shoes searched for in labor and delivery, pt'sroom, pt's mothers car, and security and remain missing. House SupervisorTracy Homer notified and will notify Meli Brannon via email in regardsto missing shoes. Pt description of shoes: Osman Dunbar Shoes,color- Beige-Khaki, size 9. cnds on 2017-10-08 CNDS HNO ID: [id number]: Quang Schwarz 10-08-2017 [facility] CarescarlettService: [facility] ([id number] Type: PhysicianType: Discharge SummariesFiled: 10/08/2017 1:26 PMNote Text:OBSTETRICS DISCHARGE SUMMARYPATIENT NAME: Vanessa Bacon ADMISSION DATE: 10/07/2017MRN: [id number] DISCHARGE DATE: 10/08/2017Attending Physician: Jonn Flores, DAYeason for Hospitalization: Intrauterine .Active Problems: Vaginal deliveryResolved Problems: Rh negative state in antepartum period GBS (group B Streptococcus carrier), +RV culture, currently Multigravida in third trimester Normal labor 41 weeks gestation of pregnancyCOMPLICATIONS: NonePROCEDURES/SURGERY DURING HOSPITALIZATION: Vaginal DeliveryHospital Course:routine courseLabs and Procedures Pending at Discharge: No pending results.Consulting Teams During Hospitalization: NonePatient Condition @ Discharge: GoodDischarge Disposition: Home/Self CarePERTINENT FINDINGS:Final hemoglobin:Recent Labs 5HB 12.0Final hematocrit:Recent Labs HCT 36.6CBC unremarkableInformation Provided to Patient:routine instructionsDischarge Medications: Current Discharge Medication ListSTART taking these medicationsibuprofen (MOTRIN) 600 mgTake 600 mg by mouth every 6 hours as needed for Pain.Qty: 40 tablet Refills: 1Norethindrone (Contraceptive) 0.35 mgTake 0.35 mg by mouth once daily. Start nov 02 if desired for birthcontrol for breast feeding moms.Qty: 1 Package Refills: 12CONTINUE these medications which have NOT CHANGEDPRENATAL 47/IRON/FOLATE 1/DHA (PNV-DHA ORAL)Take by mouth.Future Appointments:Follow Up with Dr. Flores 6 weeksTIME OF CARE: Discharge Management: I personally spent less than 30minutes involved in the discharge management of this patient.SIGNATURE: Quang Walls MD PAGER:DATE: October 08, 2017TIME: 1:25 PM anes intraop on 05-02-07 ANES INTRAOP HNO ID: [id number]: Quang alan 10-08-2017 [facility] Anurag (Maintenance Service Technician) SORAYA ArguellesService: [facility] AnesthesiologyAuthor Type: Nurse ([id number]) AnesthetistType: Anesthesia IntraOpFiled: 10/08/2017 5:42 AMNote Text:ANALGESIA PROGRESS RECORDCATHETER REMOVAL/END OF CASESERVICE DATE: 10/08/2017REMOVAL DATE AND TIME: 10-07-17 1530DELIVERY DATE AND TIME: 10/07/2017 at 3:12 PMCATHETER REMOVAL:Catheter Removal: Epidural catheter pulled intact, no apparentcomplications. Removed by nursing staff. See nursing recordSIGNATURE: Quang Arguelles CRNA PATIENT NAME: Vanessa CrookTE: October 08, 2017 : 5:42 AM PAGER/CONTACT #: type and screen on 2017-10-07 ABO group O Normal 10-07-2017 [facility] ([id number]) Comment: Performed By: #### T&S ####A [place] [address] Antibody Screen POSITIVE Normal 10-07-2017 [facility] ([id number]) Comment: Performed By: #### T&S ####[place] [address] Comment See Below Normal 10-07-2017 [facility] ([id number]) Comment: Result Comment: Screen &/or Xmatch expires in 3 days at 12 midnight. Redrawpatient at that time. Performed By: #### T&S ####[place] [address] RH Type Negative Normal 10-07-2017 [facility] ([id number]) Comment: Performed By: #### T&S ####[place] [address] progress on 2017-10 PROGRESS HNO ID: [id number]: Hung Kramer (Res) Normal 10-07-2017 [place] AbrahamService: ObstetricsAuthor Type: General ResidentType: Progress NotesFiled: 10/07/2017 1:23 Medical PMNote Text:OBSTETRICSINTRAPARTUM PROGRESS Center NOTESERVICE DATE: October 07, 2017SERVICE TIME: ([id number]) 1:18 PMSUBJECTIVEPatient with no complaints. and Reports pain well controlled withepidural.OBJECTIVELAST VITALS:Pulse BP Resp O2 Sat Temp Pain 88 122/72 20 36.9 ?C (98.4 ?F) 10/10PHYSICAL EXAM:CERVICAL EXAM:Last Exam Notes: Dilation: 6 (10/07/17 1318 : Yesenia (Res) Nascimento)Effacement (%): 90 (10/07/17 1318 : Yesenia (Res) Nascimento)Station: 0 (10/07/17 1318 : Yesenia (Res) Nascimento)Presentation: (not recorded)MEMBRANES:Status: Membrane Status: Artificial (10/07/17 1318 : Yesenia (Res) Nascimento)Rupture Date: 10/07/17 (10/07/17 1318 : Yesenia (Res) Nascimento)Rupture Time: 1315 (10/07/17 1318 : Yesenia (Res) Nascimento)Amniotic Fluid Color: Clear (10/07/17 1318 : Yesenia (Res) Nascimento)Amniotic Fluid Amount: Small (10/07/17 1318 : Yesenia (Res) Nascimento)Additional Findings: AROM performed during this exam. heart tonesreassuring before and after procedure. MONITORINGFHT: 145 moderate variability/+accelerations/-decelerationsToco: q 5-6 minutesCategory: 1ASSESSMENT/PLAN21 year old EGA:41w0d. Admitted for labor.1. GBS +2. Pit prn3. Epi in4. Arom clear @ 13:155. Rh negativeSIGNATURE: Hung Hernandez MD PATIENT NAME: Vanessa BaconDATE: October 07, 2017 : 1:18 PM PAGER/CONTACT #: PROGRESS HNO ID: [id number]: Ruben Arceo (Res) Normal 10-07-2017 Chelsi RawlsService: ObstetricsAuthor Type: General ResidentType: Progress NotesFiled: 10/07/2017 Medical 11:36 AMNote Text:OBSTETRICSINTRAPARTUM PROGRESS Center NOTESERVICE DATE: October 07, 2017SERVICE TIME: ([id number]) 11:32 AMSUBJECTIVEPatient with no complaints.OBJECTIVELAST VITALS:Pulse BP Resp O2 Sat Temp Pain 80 112/68 20 36.9 ?C (98.4 ?F) 07/11PHYSICAL EXAM:CERVICAL EXAM:Last Exam Notes: Dilation: 6 (10/07/17 1059 : Yesenia (Res) Nascimento)Effacement (%): 80 (10/07/17 1059 : Yesenia (Res) Nascimento)Station: -2 (10/07/17 1059 : Yesenia (Res) Nascimento)Presentation: (not recorded)MEMBRANES:Status:Additional Findings: NoneFETAL MONITORINGFHT: 125/mod amber/+accels/no decelsToco: 5-6 minutesCategory: IASSESSMENT/PLAN21 year old EGA:41w0d. Admitted for labor.1. GBS +2. Pit prn3. Epi in4. Arom planned for 13:155. Rh negativeSIGNATURE: N Marielos Rawls MD PATIENT NAME: Vanessa BaconDATE: October 07, 2017 : 11:32 AM PAGER/CONTACT #: [phone] PROGRESS HNO ID: [id number]: Hung Kramer (Res) Normal 10-07-2017 [place]nancy Weinsteinervice: ObstetricsAuthor Type: General ResidentType: Progress NotesFiled: 10/07/2017 Medical 11:26 AMNote Text:OBSTETRICSINTRAPARTUM PROGRESS Center NOTESERVICE DATE: October 07, 2017SERVICE TIME: ([id number]) 11:18 AMSUBJECTIVEReports pain well controlled with IV pain meds., No current vaginalbleeding., No current leaking of fluid. and Nause resolved after shereceived zofran.OBJECTIVELAST VITALS:Pulse BP Resp O2 Sat Temp Pain 80 112/68 20 36.9 ?C (98.4 ?F) 07/11PHYSICAL EXAM:CERVICAL EXAM:Last Exam Notes: Dilation: 6 (10/07/17 1059 : Yesenia (Res) Nascimento)Effacement (%): 80 (10/07/17 1059 : Yesenia (Res) Nascimento)Station: -2 (10/07/17 1059 : Yesenia (Res) Nascimento)Presentation: (not recorded)MEMBRANES:Status:Additional Findings: NoneFETAL MONITORINGFHT: 135/moderate contractions/+ accelerations/ no decelerationsToco: Irregular 4-6 minutesCategory: 1ASSESSMENT/PLAN21 year old EGA:41w0d. Patient presented with onset ofcontractions and found to be in active labor.?1. GBS+ampicillin (912)2. Pit prn3. Epi - In4. AROM after antibiotics5. Rh- s/p Rhogam6. PPBC: would like Oral contraceptives7. Hx of ADD: not on any medicationsSIGNATURE: Hung Hernandez MD PATIENT NAME: Vanessa BaconDATE: October 07, 2017 : 11:18 AM PAGER/CONTACT #: PROGRESS HNO ID: [id number]: Hung Kramer (Res) Normal 10-07-2017 [place] Corinnaervice: ObstetricsAuthor Type: General ResidentType: Progress NotesFiled: 10/07/2017 9:23 Medical AMNote Text:OBSTETRICSINTRAPARTUM PROGRESS Center NOTESERVICE DATE: October 07, 2017SERVICE TIME: (05914) 9:20 AMSUBJECTIVEPatient with no complaints., Reports pain well controlled with epidural.,No current vaginal bleeding. and No current leaking of fluid. Unable tofeel contractions since epidural.OBJECTIVELAST VITALS:Pulse BP Resp O2 Sat Temp Pain 109 146/88 20 36.9 ?C (98.4 ?F) 10/10PHYSICAL EXAM:CERVICAL EXAM:Last Exam Notes: Dilation: 5 (10/07/17 0714 : Sondra Miranda (Res) Hiram)Effacement (%): 70 (10/07/1714 : Sondra N (Res) Hiram)Station: -2 (10/07/17713 : Sondra Miranda (Res) Hiram)Presentation: (not recorded)MEMBRANES:Status:Additional Findings: NoneFETAL MONITORINGFHT: 150/moderate variability/+accelerations/early decellerationToco: 5-6 minutesCategory: 1ASSESSMENT/PLAN21 year old EGA:41w0d. Patient presented with onset ofcontractions and found to be in active labor. 5/70/-2.?1. GBS+ampicillin2. Pit prn3. Epi - In4. AROM after antibiotics5. Rh- s/p Rhogam6. PPBC: would like Oral contraceptives7. Hx of ADD: not on any medicationsSIGNATURE: Hung Hernandez MD PATIENT NAME: Vanessa BaconDATE: October 07, 2017 : 9:20 AM PAGER/CONTACT #: PROGRESS HNO ID: [id number]: Jonn Flores, Normal 10-07-2017 [place] MDService: ObstetricsAuthor Type: PhysicianType: General Progress NotesFiled: 10/08/2017 6:03 PMNote Medical Text:OBSTETRICSTRIAGE PROGRESS NOTESERVICE DATE: Center October 07, 2017SERVICE TIME: 7:22 ([id number]) AMSUBJECTIVEPatient's stated reason for arrival: ContractionsCHIEF COMPLAINT: ContractionsHISTORY OF THE PRESENT ILLNESS: The patient is a 21 year old female,, who is at 41w0d with an MEIR of 09/30/2017, by Last MenstrualPeriod dating method. Patient is here complaining of q5-6 mincontractions. Good movement. Denies vaginal bleeding., Deniesleaking of fluid. Patient states the contractions are painful and strongand would like an epidural. Her was otherwise uncomplicated. OnJan 10/03/17 she was 3/50/-2 and was planned to have an induction today at 8am. She did have one episode of emesis this morning. She did have achlamydia infection during this for which she was treated and atest of cure was negative on 03/2717.REVIEW OF SYSTEMS:PAIN ASSESSMENT: no chronic pain, currently having painful contractionsevery 5 minutesGENERAL: No weight loss, malaise or fevers.HEENT: Negative for frequent or significant headaches, No changes inhearing or vision, no nose bleeds or other nasal problemsNECK: Negative for goiter, pain or significant neck swellingRESPIRATORY: Negative for cough, hemoptysis, wheezing, COPD, dyspnea orshortness of breathABDOMEN: feels nausea, 1 episode of vomiting, no constipation or diarrheaCARDIOVASCULAR: Negative for chest pain, leg swelling, hypertension, CHFor palpitationsGU: No history of dysuria, frequency or incontinenceGYN: Negative for abnormal vaginal bleeding, abnormal vaginal dischargeMUSCULOSKELETAL: Negative for joint pain or swelling, back pain or musclepainSKIN: Negative for lesions, rash, and itching.PSYCH: Negative for sleep disturbance, mood disorder and recentpsychosocial stressors.NEURO: No history of headaches, syncope, paralysis, seizures or tremorsThe remainder of the review of systems is negative.OBJECTIVELAST VITALS:Pulse BP Resp O2 Sat Temp Pain 109 146/88 20 37.1 ?C (98.7 ?F) 06/11HT/WT/BMI:Height Weight BMI 162.6 cm (5' 4) 102.1 kg (225 lb) 38.62PHYSICAL EXAM:General: WD, WNHeart: RR, S1, T2Zdwqg: clear to auscultationAbdomen: soft, nontender, no massesUterus: soft, NTExtremities: trace+ edemaDTRs: 2+SSE: (not done)CERVICAL EXAM:Dilation: 5 (10/07/17 0714 : Sondra Miranda (Res) Lende) cmStation: -2 (10/07/17713 : Sondra Miranda (Res) [place])Effacement: 70 (10/07/17713 : Sondra Miranda (Res) [place]) %Presentation: MONITORING/ASSESSMENT:FHT: 150/Moderate variability/+accelerations/- decellerationsToco: q5 minutesCategory: 1Ultrasound: Per last documented ultrasound examPlacenta: posterior placentaPresentation: VertexCardiac activity: Good cardiac activityAmniotic fluid: And 2 by 2 pocket fluidASSESSMENT/PLAN21 year old EGA:41w0d. Presenting to triage with contractions.1) In active labor: will admit due to IAL, she was a planned inductiontoday2) GBS +ve3) Patient requesting epiduralSIGNATURE: Hung Hernandez MD PATIENT NAME: Vanessa CrookTE: October 07, 2017 : 7:12 AM PAGER/CONTACT #:Agree, admit in labor, Amp for GBS+, ok for EPID, Pit/AROM as needed.Jonn Flores MD nursing prog on 201 05-02-06 NURSING PROG HNO ID: [id number]: Normal 0 10-07-2017 Chelsi Nicole (Rn) [facility] RNService: NursingAuthor Type: ([id number]) Registered NurseType: Nursing Progress NoteFiled: 10/07/2017 7:54 PMNote Text:Report received from Geeta Gan, RN @ 1500, viable female [id number]. This RN assumes care of pt ld note on LD HNO ID: [id number]: Alberto Kramer (Res) AbrahamService: ObstetricsAuthor Type: Normal 10-07-2017 [place] NOTE ResidentType: LANDD Delivery NoteFiled: 10/07/2017 4:25 PMNote General Text: -----Attestation Medical signed by Jerod Mckeon at 10/07/2017 5:32 PMI saw and evaluated the patient. Discussed with Cent er the resident and agree withr emerald's findings and plan as documented in the resident's note.I ([id number]) was present with residents supervising them doing delivery .Jonn Flores MD --OBSTETRICSDELI VERY SUMMARY - VAGINAL DELIV ERYGestational Age at Delivery: [id number] Date: 10/07/2017Service Time: 4:24 PMBg Alfonso Bacon [[id number]] Labor EventsRupture Date: 10/07/17Rupture Time: 1315Rupture Type: AROMFluid Color: ClearInduction: NoAugment ation: AROM, OxytocinEpisiotomy/Laceratio n:Episiotomy: NoneLacerations: NoneEstimated Blood Loss (mL):Estimated Blood Loss (m L): 250Date and Time of :Date of : 10/07/17Time of : 1512Delivery Information:Cathy littlejohn Reason for Delivery : LaborAdditional Clinicial Indicator(s) for delivery: GBS Colonization, PostTermDelivery type: Vag inal, Spontaneous DeliveryPresentation: Vertex Shoulder Dystocia Present: NoVacuum Used: NoForceps Used: NoCord:Complications: NoneDe layed Cord Clamping: YesPlacenta:Delivered: 10/07/2017 3:17 PMRemoval: Spontaneous, ExpressedAppear ance: IntactAnesthesia:Method: EpiduralMeasurements, Apgars: Weight: 9 lb 3.9 oz We ight (gms): 4192 gOne Minute : 9Five Minute : 9Code [place] Called: Allen digital ?sweep? of the vaginal canal was performed by the Resident andit was ascertained that no instrume nts or other foreign bodies areretained within the cavity.Mother and baby are stable and bonding and skin to skin. Baby is inmother's arms.SIGNATURE: Hung Hernandez MD PATIENT NAME: Ludy Alan HartDATE: October 07, 2017 : 4:23 PM history physical on 2017-10-07 HISTORY HNO ID: [id number]: Felicia Miranda (Res) LendeService: ObstetricsAuthor Type: ResidentType: Normal [place] PHYSICAL HANDPFiled: 10/07/2017 7:49 AMNote General Text: -----Attestation Medical signed by Jerod Mckeon at 10/07/2017 1:22 PMI saw and evaluated the patient. Discussed with the Center resident and agree withresid ent's findings and plan as documented in the resident's note.Admitted in ([id number]) labor, Amp for GBS+, Pit/AROm as needed, EPID as desired.Leonie Flores MD --OBSTETRICSHISTORY AND PHYSICALSERVICE DATE: Marciano crow 2017SERVICE TIME: 7:22 AMSUBJECTIVEPatient's stated reason for arrival: ContractionsCHIEF C OMPLAINT: ContractionsHISTORY OF THE PRESENT ILLNESS: The patient is a 21 year old female,, who is at 41w0d with an MEIR of 09/30/2017, by Last MenstrualPeriod dating method. Patient is he re complaining of q5-6 mincontractions. Good movement. Denies vaginal bleeding., Denieslea martin of fluid. Patient states the contractions are painful and strongand would like an epidural. Her was otherwise uncomplicated. OnJan 10/03/17 she was 3/50/-2 and was planned to have an induc tion today at 8am. She did have one episode of emesis this morning. Patient is O negativeand has received rhogam during her . She is GBS +ve. She didreceive flu and Tdap vaccines during her . She did have achlamydia infection during this for which she was treated an d atest of cure was negative on 03/2717. She has a history of a prior term SVDto a 8.14#.Patient o n triage was found to be having contractions with Cervical examshowed /-2. Patient is being ad mitted for active labor. Patientalready requesting Epidural.History of HSV: NegativeHistory of MRSA : NegativeMaternal Results (in the last 365 days, Abnormal Results displaywith * ):ABO/ Rh: 07/08/2017: O NEGATIVEHCT: 02/28/2017: 40.3 %HBsA02/28/2017: NegativeHIV: 02/28/2017: Non ReactiveGC/CHLAYMDIA: 03/28/2017: Negative for Chlamydia trachomatis byamplification.; Negative f or Neisseria gonorrhoeae by amplification.RUBELLA: 02/28/2017: 6.42 Index ValueHEPATITIS C:GBS: +veRPR :SYPHILIS: 02/28/2017: <0.2 AIPOST DELIVERY CONTRACEPTION:Discussed post-delivery contraception options.Patient received written information about post-delivery contraceptionoptions.Patient desires post-delivery contraception: Oral contraceptives chosen,informed consent obta ined.HISTORY REVIEWPAST MEDICAL HISTORYDiagnosis Date- ADD (attention deficit disorder)PAST SURGIC AL HISTORYProcedure Laterality Date- TONSILLECTOMY HX- TOOTH EXTRACTION x4 wisdom teethFAMILY HISTOR YProblem Relation Age of Onset- tumor removed from heart [OTHER] Paternal Grandmother- stomac h cancer [OTHER] Paternal Grandfather- No Family History No Family History female/colon/prostat e CA- Diabetes No Family History paternal sideSocial History Marital status: Single Spouse name: Years of education: Number of children:Occupational HistoryOccupation Employer CommentstudentSocia l History Main Topics Smoking status: Never Smoker Smokeless status: Never Used Alcohol use: No D rug use: No Sexual activity: Yes Partners with: Male control/protection: NoneObst etric History T1 L1 SAB0 TAB0 Ectopic0 Multiple0 Live Births1 Comment: Menarche 2007Name of Baby 1: Martin Date: 10/24/14 GA: 38w4d Delivery: Vaginal,Spontaneous Delivery Apgar1: 8 Apgar5: 9 Living: LivingName of Baby 2: Not recorded Date: Not recorded GA: Not recorde d Delivery: Not recorded Apgar1: Not recorded Apgar5: Not recorded Living: Not recordedActive N on-Hospital Problems Diagnosis Date Noted- GBS (group B Streptococcus carrier), +RV culture, cara ntly lekpxeuy36/09/2017- Chlamydia infection affecting 03/02/2017 Overview Note: + from NOB visit 01/2017 (CARL in March 2017 was neg)- Supervision of other normal , antepartum 02/28/2017- Rh negative state in antepartum period 02/28/2017- ADD (attention deficit disorder) 04/22/2013- Metacarpal bone fracture 02/25/2011- Lumbago 01/14/2009LLERGIESNo Known AllergiesPrior to Admission MedicationsPrescriptions Last Dose Informant Patient Reported? Taking?PRE 47/IRON/FOLATE 1/DHA (PNV-DHA ORAL) Yes YesSig: Take by mouth.Facility-Administered Medications: NoneREVIEW OF SYSTEMS:PAIN ASSESSMENT: no chronic pain, currently having painful con tractionsevery 5 minutesGENERAL: No weight loss, malaise or fevers.HEENT: Negative for f requent or significant headaches, No changes inhearing or vision, no nose bleeds or other nasal p roblemsNECK: Negative for goiter, pain or significant neck swellingRESPIRATORY: Negativ e for cough, hemoptysis, wheezing, COPD, dyspnea orshortness of breathABDOMEN: feels nausea, 1 episode of vomiting, no constipation or diarrheaCARDIOVASCULAR: Negative for chest pain, leg swelling, hypertension, CHFor palpitationsGU: No history of dysuria, frequency or incontinenceGYN : Negative for abnormal vaginal bleeding, abnormal vaginal dischargeMUSCULOSKELETAL: Ne gative for joint pain or swelling, back pain or musclepainSKIN: Negative for lesions, rash, and itchi ng.PSYCH: Negative for sleep disturbance, mood disorder and recentpsychosocial stressors .NEURO: No history of headaches, syncope, paralysis, seizures or tremorsThe remainder of the review of systems is negative.OBJECTIVELAST VITALS:Pulse BP Resp O2 Sat Temp Pain 109 146/88 20 37.1 ?C (98.7 ?F) /10HT/WT/BMI:Height Weight BMI 162.6 cm (5' 4) 102.1 kg (225 lb) 38.62PHYSICAL EXAM: General: WD, WN, obeseHEENT: NC/AT, sclera white, pupils equal, no thyromegalyLungs: clearHeart : RR, S1, Q0Tfueaai: soft, nontender, no massesUterus: soft, NTExtremities: tr edemaDTRs: 2+FHT: 140 bpm (10/07/17 0700 : Shweta LynneRn) ADAN Gomez) bpmSt Spec Exam: (not done)CERVICAL EXA M:Dilation: 5 (10/07/17 0714 : Sondra Miranda (Collins Gandhi) cmStation: -2 (10/07/17 0714 : Sondra Miranda (Res) Hiram)Effacement: 70 (10/07/17 0714 : Sondra Miranda (Res) Hiram) %Position:Presentation: Pelv imetry: Pelvimetry clinically assessed as adequateFETAL MONITORING/ASSESSMENT:Baseli ne: 140 bpm (10/07/17 0700 : Shweta Gomez RN)Variability: Moderate (6-25 bpm) ( 8 0700 : Shweta Gomez RN)Accelerations: Present (10/07/17 0700 : Shweta Gomez RN)Dec elerations: Decelerations: None (10/07/17 0700 : Shweta Johnson RN)Contractions: Irregular ( [place] Adjusted) (10/07/17 0700 : Shweta Johnson RN)Frequency: x1 (10/07/17 0700 : Shweta Gomez RN)NST Interpretation:FHR Category: 1 (10/07/17 0700 : Shweta Gomez RN)NST Commen ts:EFW: 8 /12 lbs based on last ultrasound.Ultrasound: Per last documented ultrasound examPl acenta: posterior placentaPresentation: VertexCardiac activity: Good cardiac activityAmniotic flu id: And 2 by 2 pocket fluidASSESSMENT/PLAN21 year old EGA:41w0d. Patient presented with onset ofcontractions and found to be in active labor. 5/70/-2.1. GBS+ampicillin2. Pit prn3. E pi soon4. AROM after antibiotics5. Rh- s/p Rhogam6. PPBC: would like Oral contraceptives7. Hx of ADD: not on any medicationsD/w Dr. Flores.SIGNATURE: Hung Hernandez MD PATIENT NAME: Ludy BaconDATE: October 07, 2017 : 7:22 AM PAGER/CONTACT #: hemogram on 2017-10 Erythrocyte distribution 13.2 11.7-14.4 % Normal 10-07 [facility] width Auto Ratio (RBC) System ([id number]) Comment: Performed By: #### CBC1 #### [facility] [place], [place] [address] Erythrocytes (RBC) 4.02 3.93-5.22 mil/cmm Normal 10-07-2017 [facility] (00 000) Comment: Performed By: #### CBC1 #### [facility] [place], [place] [address] Hematocrit (HCT) 36.6 34.1-44.9 % Normal 10-07-2017 [facility] ([address]49) Comment: Performed By: #### CBC1 #### [address] [address] Hemoglobin mass conc 12.0 11.2-15.7 g/dL Normal 8 [facility] (d) System (00 000) Comment: Performed By: #### CBC1 #### [place] [address] MCH 29.9 25.6-32.2 pg Normal 10-07-2017 [facility] (43863) Comment: Performed By: #### CBC1 #### [place] [address] MCHC mass conc (RBC) 32.8 31.6-34.8 % Normal 8 [facility] ([address]) Comment: Performed By: #### CBC1 #### [place] [address] MCV 91.0 79.4-94.8 fl Normal 10-07-2017 [facility] (565[address]) Comment: Performed By: #### CBC1 #### [place] [address] Platelet mean volume (PMV) 9.8 9.4-12.3 fl Normal [facility] [employer] (00 000) Comment: Performed By: #### CBC1 #### [address] [address] Platelets 166 182-369 thou/cmm Low 10-07-2017 [facility] (16720) Comment: Performed By: #### CBC1 #### [facility] [place], [place] [address] RDW SD 44.4 36.4-46.3 fl Normal 10-07-2017 [facility] ([address] Comment: Performed By: #### CBC1 #### [facility] [place], [place] [address] WBC (Leukocytes) 11.65 3.98-10.04 thou/cmm High 10-07-2017 [facility] (00 000) Comment: Performed By: #### CBC1 #### [address] [address] antibody id on 2017 Antibody Id See Below Normal 10-07-2017 [facility] (30459) Comment: Result Comment: The patient has received RhoGam recently and may bedemonstrating Anti-D as a result of the injection. Performed By: #### ABID #### [address] [address] anes preop on 10-07 ANES PREOP HNO ID: [id number]: Quang alan 10-07-2017 [facility] (Maintenance Service Technician) SORAYA ArguellesService: [facility] AnesthesiologyAuthor Type: Nurse ([id number]) AnesthetistType: Anesthesia PreOpFiled: 10/07/2017 8:26 AMNote Text:OB ANESTHESIA PRE-PROCEDURE ASSESSMENTSERVICE DATE: 10/07/2017SERVICE TIME: 8:24 AMEstimated body mass index is 38.62 kg/(m2) as calculated from thefollowing: Height as of this encounter: 162.6 cm (5' 4). Weight as of this encounter: 102.1 kg (225 lb).ASA Class: 2Adequate NPO Status: YesALLERGIESNo Known AllergiesAirway Assessment: MP 2; Neck ROM: Full ROM without neurologic symptoms;Airway Evaluation: No significant abnormalitiesDentition: Teeth intactSymptoms of Sleep Apnea: DeniesHematocritDate Value Ref Range Uqukbk2410/07/2017 36.6 34.1 - 44.9 % Final Platelet CountDate Value Ref Range Duyzyd8110/07/2017 166 (L) 182 - 369 thou/cmm Final Vitals: 8 801BP: 146/88Pulse: 109Resp: 20Temp: 37.1 ?C (98.7 ?F) 36.9 ?C (98.4 ?F)TempSrc: Oral Temporal ArteryWeight: 102.1 kg (225 lb)Height: 162.6 cm (5' 4)Previous Anesthesia: No history of adverse event Family history ofanesthetic problems: NoneAdditional Physical Exam:Lungs: Clear to auscultation. Breath Sounds Equal: YesCardiac: Regular rhythmAdditional Pertinent Findings: NoneOBSTETRIC HISTORY:ACTIVE PROBLEM LISTLumbagoMetacarpal Bone FractureAdd (Attention Deficit Disorder)Supervision of Other Normal , AntepartumRh Negative State in Antepartum PeriodChlamydia Infection Affecting PregnancyGbs (Group B Streptococcus Carrier), +Rv Culture, Currently Multigravida in Third TrimesterPrevious OB Anesthetic: EpiduralPast Obstetric History: NoneCurrent Obstetric Problems/ Important Considerations:NoneGERD: Denies GERDAnesthetic Risks, Benefits, Alternatives, Personnel and Consent Discussed. Separate Consent Signed at this Interview: YesBlood Products: Not anticipated for this procedureANESTHETIC PLAN: Neuraxial Block for LaborPain Management Plan: Parenteral or Oral and Neuraxial OpioidsEPIC Chart ReviewACTIVE PROBLEM LISTLumbagoMetacarpal Bone FractureAdd (Attention Deficit Disorder)Supervision of Other Normal , AntepartumRh Negative State in Antepartum PeriodChlamydia Infection Affecting PregnancyGbs (Group B Streptococcus Carrier), +Rv Culture, Currently Multigravida in Third TrimesterPAST MEDICAL HISTORYDiagnosis Date- ADD (attention deficit disorder)PAST SURGICAL HISTORYProcedure Laterality Date- TONSILLECTOMY HX- TOOTH EXTRACTION x4 wisdom teethFAMILY HISTORYProblem Relation Age of Onset- tumor removed from heart [OTHER] Paternal Grandmother- stomach cancer [OTHER] Paternal Grandfather- No Family History No Family History female/colon/prostate CA- Diabetes No Family History paternal sideSocial HistorySubstance Use Topics- Smoking status: Never Smoker- Smokeless tobacco: Never Used- Alcohol use NoPrescriptions Prior to Admission: 47/IRON/FOLATE 1/DHA (PNV-DHA ORAL) Take by mouth. Disp: Rfl:Inpatient medications reviewed in PSYCHIATRIC.I have interviewed and examined the patient. I have reviewed the medicalrecord , pertinent consults and/or the pre-anesthesia evaluation,pertinent labs, and test results.Significant changes in the patient's condition since the History andPhysical, not otherwise documented in primary service progress notes: NoTcitizens [facility] contains updated information obtained within 48 hours ofSurgery/Procedure.SIGNATURE: Quang Arguelles CRNA PATIENT NAME: Vanessa CrookTE: October 07, 2017 : 8:24 AM : 1995 anes intraop on 201 05-02-06 ANES INTRAOP HNO ID: [id number]: Quang alan 10-07-2017 Sanjay Kay Crnae: [facility] AnesthesiologyAuthor Type: Nurse ([id number]) AnesthetistType: Anesthesia IntraOpFiled: 10/07/2017 11:53 AMNote Text:ANESTHESIA PROGRESS NOTESERVICE DATE: 10/07/2017SERVICE TIME: 11:51 [id number] pt complaint of feeling too numb. Epidural pump off for 35 minutes.Resumed Epidural as prior program and record.SIGNATURE: Quang Arguelles CRNA PATIENT NAME: Vanessa Tony: October 07, 2017 : 11:51 AM PAGER/CONTACT #:ETX#[phone] ANES INTRAOP HNO ID: [id number]: Quang alan 10-07-2017 Sanjay Kay Crnae: [facility] AnesthesiologyAuthor Type: Nurse ([id number]) AnesthetistType: Anesthesia IntraOpFiled: 10/07/2017 9:18 AMNote Text:OB ANESTHESIA PROCEDURE:EPIDURAL LABOR PCEA ANALGESIAPROCEDURE DATE: 10/07/2017PROCEDURE START TIME: 9:00 AMThe patient was placed in a sitting position. Timeout was performed andinformed consent confirmed (see nurse's documentation). Using steriletechnique, the patient's back was prepped and draped. Skin site wasinfiltrated with local anesthetic.Beginning Pain Score: 5 out of 10VItals:Last Pulse10/07/17 : 109 Last BP10/07/17 : 146/88Needle: 17 gauge TuohyDepth of Needle: 6 cmDepth of Catheter at Skin: 12 cmCm of Catheter in Epidural Space: 6 cmInterspace: approximately L3-M6Izscdo of Attempts: 1Wet Tap Complication: NoDural Puncture Epidural: NoLoss of Resistance: SalineParasthesias: None Time Amt Medication Pulse B.P. CommentsCatheterTEST 0906 3 cc 1.5% Lidocaine with 1:200,000 Epinephrine 123 132/73NegativeCatheterBOLUS 0908 10 cc 0.2% ropivicaineINFUSION 0910 Continous Infusion 10 mL/hr PCEA: Bolus 4 mL, Lockout 20 mins 0.2% ropivicaine 101 129/71 Patientcomfortable able to flex kneesPain Score After Treatment: 0 out of 10See nurses' documentation for additional vitals.SIGNATURE: Quang Arguelles CRNA PATIENT NAME: Vanessa BaconDATE: October 07, 2017 : 9:14 AM PAGER/CONTACT #: Encounters Date Type Reason Provider Location 10-07-2017 Ambulatory QUANG WALLS Facility:[facility] 03-13-2017 - Ambulatory LACI BARH [facility] 03-13-2017 JONN FLORES ([id number]) 10-07-2017 - Evaluation and 41 weeks gestation [facility] Facil ity:AKNANCY 10-08-2017 management of of [facility] JONN FLORES 09-30-2017 Evaluation and CHARLEY SIERRA Facility:[facility] management of CHARLEY Jan [facility] 05-26-2020 - Patient encounter External Provider Sude[facility] 05-26-2020 procedure 05-26-2020 Results Only External Provider External-N onCCF Procedures Procedure Name Date Provider Location EXTERNAL IMAGING 05-26-2020 External Provider Tera Cli godfrey ([id number]) Plan of Treatment Plan Description Date Location DTAP,TDAP,TD (9 - Td) DTAP,TDAP,TD (9 - Td) 07-11-2027 [facility] ([id number]) INFLUENZA (#1) INFLUENZA (#1) 2020 [facility] ([id number]) PAP TESTING PAP TESTING 02-29-2020 [facility] ([id number]) Immunizations Vaccine Notes Status Date Location DTaP (Age<7) diphtheria, tetanus (completed) 06-06-2000 [facility] toxoids and acellular (52978 ) pertussis vaccine DTaP (Age<7) diphtheria, tetanus (completed) 10-20-1997 [facility] toxoids and acellular (31555 ) pertussis vaccine DTaP (Age<7) diphtheria, tetanus (completed) 06-06-1996 [facility] toxoids and acellular (15789 ) pertussis vaccine DTaP (Age<7) diphtheria, tetanus (completed) 04-05-1996 [facility] toxoids and acellular (50412 ) pertussis vaccine DTaP (Age<7) diphtheria, tetanus (completed) 02-09-1996 [facility] toxoids and acellular (96582 ) pertussis vaccine Hib - 4 Dose Schedule haemophilus (completed) 10-20-1997 [facility] influenzae type b (70945) vaccine, HbOC conjugate Hib - 4 Dose Schedule haemophilus (completed) 06-06-1996 [facility] influenzae type b (32745) vaccine, HbOC conjugate Hib - 4 Dose Schedule haemophilus (completed) 04-05-1996 [facility] influenzae type b (86845) vaccine, HbOC conjugate Hib - 4 Dose Schedule haemophilus (completed) 02-09-1996 [facility] influenzae type b (37967) vaccine, HbOC conjugate Hepatitis B Peds/Adol hepatitis B vaccine, (completed) 06-06-1996 [facility] pediatric or (20477) pediatric/adolescent dosage Hepatitis B Peds/Adol hepatitis B vaccine, (completed) 02-09-1996 [facility] pediatric or (78155) pediatric/adolescent dosage Hepatitis B Peds/Adol hepatitis B vaccine, (completed) 1995 [facility] pediatric or (08135) pediatric/adolescent dosage HUMAN PAPILLOMAVIRUS human papilloma virus (completed) 08-16-2012 [facility] QUADRIVALENT - Male and vaccine, quadrivalent (04916) Females HUMAN PAPILLOMAVIRUS human papilloma virus (completed) 05-11-2010 [facility] QUADRIVALENT - Male and vaccine, quadrivalent (54733) Females HUMAN PAPILLOMAVIRUS human papilloma virus (completed) 05-08-2008 [facility] QUADRIVALENT - Male and vaccine, quadrivalent (00994) Females Influenza Vaccine, influenza virus (completed) 07-18-2017 [facility] Split-Non Spec vaccine, unspecified (4419 5) formulation Influenza Vaccine, influenza virus (completed) 07-29-2014 [facility] Split-Non Spec vaccine, unspecified (4419 5) formulation MMR measles, mumps and (completed) 06-06-2000 [facility] rubella virus vaccine (94178 ) MMR measles, mumps and (completed) 02-06-1997 [facility] rubella virus vaccine (72823 ) Meningococcal Conj IM Meningococcal, MCV4, (completed) 05-08-2008 [facility] Unspec unspecified conjugate (42655 ) formulation(groups A, C, Y and W-135) IPV poliovirus vaccine, (completed) 06-06-2000 [facility] inactivated (88463) IPV poliovirus vaccine, (completed) 06-06-1996 [facility] inactivated (41196) IPV poliovirus vaccine, (completed) 04-05-1996 [facility] inactivated (01513) IPV poliovirus vaccine, (completed) 02-09-1996 [facility] inactivated (51516) Rho D Immune Globulin RHO(D) immune (completed) 10-08-2017 [facility] Inj globulin- IV or IM (15291) Rho D Immune Globulin RHO(D) immune (completed) 07-11-2017 [facility] Inj globulin- IV or IM (96965) Rho D Immune Globulin RHO(D) immune (completed) 10-25-2014 [facility] Inj globulin- IV or IM (71564) Rho D Immune Globulin RHO(D) immune (completed) 08-19-2014 [facility] Inj globulin- IV or IM (77222) Tdap (Age 7+) tetanus toxoid, (completed) 07-11-2017 [facility]inic reduced diphtheria (31498) toxoid, and acellular pertussis vaccine, adsorbed Tdap (Age 7+) tetanus toxoid, (completed) 08-19-2014 [facility] linic reduced diphtheria (29359) toxoid, and acellular pertussis vaccine, adsorbed Tdap (Age 7+) tetanus toxoid, (completed) 05-11-2010 [facility] lin reduced diphtheria (33431) toxoid, and acellular pertussis vaccine, adsorbed Payers Payer Name Policy Number Location [place] [employer] MEDICAID [id number] [facility] (08001) MOOJax MEDICAID [id number] [facility] (44 195) MMO SUPERMED PLUS [id number] [facility] (67400) The following information is from the original human readable contentNo Payer Records FoundNo Payer Records FoundNo Payer Records FoundNo Payer Records FoundNo Payer Records Found Social History Type Social History Description Date Locat ion Tobacco smoking status Never smoker 04-15-2019 [facility] ([id number]) NHIS Tobacco use and exposure Never used 04-15-2019 [facility] (84546) Alcohol intake Current non-drinker of 04-15-2019 [facility] (12995) alcohol (finding) Sex Assigned At Not on file [facility] (70386) The following information is from the original human readable contentNo Social History Records FoundNo Social History Records FoundNo Social History Records FoundNo Social History Records FoundNo Social History Records FoundNo Social History Records FoundNo Social History Records Found Summary Purpose Family History No Family History Records FoundNo Family History Records FoundNo Family History Records FoundNo Family History Records Found Advance Directives Documents on File Type Date Recorded Patient Custom Designer Explanati on Advance Directive(s) 09/02/2017 1:54 PM Advance Directive(s) 10/07/2017 7:43 AM History of Past Illness Problem Noted Date Resolved Date Multigravida in third trimester 10/07/2017 10/08/19 18 Normal labor 10/07/2017 10/08/2017 41 weeks gestation of 10/07/2017 10/08/19 18 Vaginal delivery 10/07/2017 01/09/2018 GBS (group B Streptococcus carrier), +RV culture, currently 09/09/2017 10/08/2017 Chlamydia infection affecting 03/02/2017 03/14/2019 Overview: + from NOB visit 01/2017 (CARL in March 7 was neg) Supervision of other normal , antepartum 02/28/2017 03/14/2019 Rh negative state in antepartum period 02/28/2017 0 10/08/2017 Active labor 10/24/2014 12/12/2014 Rh negative status during , antepartum 07/17/2014 12/12/2014 Supervision of normal first 04/09/2014 Additional Source Comments FOR RECORDS PERTAINING TO PATIENTS WHO ARE OR HAVE BEEN ENROLLED IN A CHEMICAL DEPENDENCY/SUBSTANCE ABUSE PROGRAM, SOME INFORMATION MAY BE OMITTED. This clinical summary was aggregated from multiple sources. Caution should be exercised in using it in the provision of clinical care. This summary normalizes information from multiple sources, and as a consequence, information in this document may materially changethe coding, format and clinical context of patient data. In addition, data may be omittedin some cases. CLINICAL DECISIONS SHOULD BE BASED ON THE PRIMARY CLINICAL RECORDS. [facility] provides no warranty or guarantee of the accuracy or completeness of information in this document. UNRECOGNIZED CONTENT PROVIDED BELOW FOR UNRECOGNIZED SECTION INFORMATION SOURCE DATE CREATED AUTHOR AUTHOR'S ORGANIZATIO N 03/23/2018 [facility] DATE CREATED AUTHOR AUTHOR'S ORGANIZATIO N 03/27/2018 [facility] DATE CREATED AUTHOR AUTHOR'S ORGANIZATIO N 03/28/2018 [facility] [facility] DATE CREATED AUTHOR AUTHOR'S ORGANIZATIO N 03/09/2020 [facility] UNRECOGNIZED CONTENT PROVIDED BELOW FOR UNRECOGNIZED SECTION Source Comments In the event this information is protected by the Federal Confidentiality of Alcohol and Drug Abuse Patient Records regulations: The Federal rules restrict any use of the information to criminally investigate or prosecute any alcohol or drug abuse patient.[facility]
--- OUTSIDE RECORDS SUMMARY | 2020-07-14 08:58 | XMS RPT_ITS | CCD ---
:1995 External Reference #:[id number] Author Organization [facility] Care Team Providers Name Role Phone SIERRAJan Unavailable Unavailable SIERRA, A Unavailable Unavailable MCCOMSEY Unavailable Unavailable MONCADA Unavailable Unavailable SMELCER Unavailable Unavailable MARK Unavailable Unavailable MONCADA Unavailable Unavailable SMELCER Unavailable Unavailable Kristin FLORES Unavailable Unavailable MARCOS, A Unavailable Unavailable Kristin FLORES Unavailable Unavailable Unavailable Primary Care Provider Unavailable Medications Medication Name Sig Date Prescriber Location Ibuprofen ibuprofen (MOTRIN) 10-08-2017 Quang Walls [facility] 600 mg tablet Take Quang Walls (4419 5) 1 tablet by mouth every 6 hours as needed for Pain. 40 tablet 1 10/08/2017 Active Comment: Take 1 tablet by mouth every 6 hours as needed for Pain. Levonorgestrel levonorgestrel (MIRENA 04-11-2019 - [facility] Provider [facility] INTRAUTERINE) by 04-11-2024 [facility] Provider ([id number]) INTRAUTERINE route. 0 04/11/2019 04/11/2024 Active Comment: by INTRAUTERINE route. 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 bone (69934) Normal and/or Encounter for Completed 10-08-2017 - [facility] on General delivery full[facility]term [facility] uncomplicated delivery (0000 0) Spondylosis; Low back pain Completed 01-14-2009 - [facility] ic intervertebral disc (95626) disorders; other back problems Unclassified Unknown / UNK(Unknown) 10-08-2017 - [facility] ([id number]) Unclassified 41 weeks gestation of 10-07-2017 - [facility] (15530) Unclassified Encounter for Completed 03-13-2017 - [facility] screening of (0000 0) mother Results Result Name Value Range Unit Interpretation Flag Date Location progress on 2020-01 PROGRESS HNO ID: [id number] Normal 02-12-[address] [facility] Author: Verito Gillis) ADAN Gonzalez [place] ([id number]) Service: ? Author Type: Registered Nurse Type: Progress Notes Filed: 02/12/2020 9:01 PM Note Text: Summary: Covid Follow Up - Chart Review Onset of symptoms 01/24/2020 Covid Positive 01/27/2020 Unable to reach patient. Not participating in White Sugar Supervisor. Discharge from Monitoring program. VERITO GONZALEZ RN February 12, 2020 9:00 PM PROGRESS HNO ID: [id number] Normal 02-12-[address] [facility] Author: Jaelyn Venegas RN [place] ([id number]) Service: ? Author Type: ? Type: Progress Notes Filed: 02/12/2020 11:33 AM Note Text: Voice Message left message that we had called. Day 20 onset of symptoms. Vivian, this is the [facility] calling, a member of you r household [...] [facility] patients may call: ? [facility] Nurse collection advisor at [phone] ? Their PCP Office Caregivers may call: ? [facility] Employee Hotline: [phone] ? [facility] Employee Boost appointment for 24/04 emotional support: [phone] If you are finding it more difficult [...] CNPTOUTREACH Patient Outreach (NURSMN) Normal 0 02-12-2020 [place] [facility] VANESSA BACON ([id number]) 1995 [facility] Time Provider Department ([id number]) 02/12/20 VERITO GONZALEZ (RN) NURSMN During your visit today, we recorded the following informati on about you: VERITO GONZALEZ RN, RN 02/12/2020 9:01 PM Signed Onset of symptoms 01/24/2020 Covid Positive 01/27/2020 Unable to reach patient. Not participating in White Sugar Supervisor. Discharge from Monitoring program. VERITO GONZALEZ RN February 12, 2020 9:00 PM Allergies As of Date: 02/12/2020 (No Known Allergies) Date Reviewed: 04/15/2019 Reviewed by: Jonn Flores MD - Fully Assessed Reason for Visit: Covid Follow Up [3427] Cmt: Covid Follow-Up - Chart Review Prescriptions [...] during , antepartum*07/17/2014 0 12/12/2014 Active labor [[id number]] 10/24/2014 12/12/2014 Supervision of other normal , [...] Encounter Status:Closed by VERITO GONZALEZ on 02/12/20 [facility] Patient Outreach (AMBCMG) Normal 0 02-12-2020 [place] [facility] JORDIVANESSA ([id number]) 1995 [facility] Date Time Provider Department ([id number]) 02/12/20 JAELYN VENEGAS (RN) [facility] During your visit today, we recorded the following informati on about you: Jaelyn Venegas RN 02/12/2020 11:33 AM Signed Voice Message left message that we had called. Day 20 onset of symptoms. Helyris, this is the [facility] calling, a member of y our household [...] [facility] patients may call: ? [facility] Nurse collection advisor at [phone] ? Their PCP Office Caregivers may call: ? [facility] Employee Hotline: [phone] ? [facility] Employee Boost appointment for 24/04 emotional support: [phone] If you are finding it more difficult [...] during , antepartum*07/17/2014 0 12/12/2014 Active labor [ZJG5762] 10/24/2014 12/12/2014 Supervision of other normal , [...] 02/12/20 progress on 2020-01 PROGRESS HNO ID: [id number] Normal 02-11-[address] [facility] Author: Meaghan Gillis) AADN Lewis [place] ([id number]) Service: ? Author Type: Registered Nurse Type: Progress Notes Filed: 02/11/2020 10:31 AM Note Text: Voice Message Day Vivian, this is the [facility] calling, a member of you r household [...] [facility] patients may call: ? [facility] Nurse collection advisor at [phone] ? Their PCP Office Caregivers may call: ? [facility] Employee Hotline: [phone] ? [facility] Employee Boost appointment for 24/04 emotional support: [phone] If you are finding it more difficult [...] CNPTOUTREACH Patient Outreach (OTOLWI) Normal 0 02-11-2020 [place] [facility] JORDIVANESSA ([id number]) 1995 F [facility] [place] Date Time Provider Department ([id number]) 02/11/20 MEAGHAN LEWIS (RN) [facility] During your visit today, we recorded the following informati on about you: Meaghan Lewis RN, RN 02/11/2020 10:31 AM Signed Voice Message Day Vivian, this is the [facility] calling, a member of y our household [...] [facility] patients may call: ? [facility]CF Nurse collection advisor at [phone] ? Their PCP Office Caregivers may call: ? [facility] Employee Hotline: [phone] ? [facility] Employee Boost appointment for 24/04 emotional support: [phone] If you are finding it more difficult [...] during , antepartum*07/17/2014 0 12/12/2014 Active labor [PAJ2373] 10/24/2014 12/12/2014 Supervision of other normal , [...] 02/11/20 progress on 2020-01 PROGRESS HNO ID: [id number] Normal 02-10-[address] [facility] Author: Domingo Haley ([id number]) Service: ? Author Type: ? Type: Progress Notes Filed: 02/10/2020 10:09 AM Note Text: Voice Message Rukhsanayris, this is the [facility] calling, a member of you r household [...] [facility] patients may call: ? [facility]CF Nurse collection advisor at [phone] ? Their PCP Office Caregivers may call: ? [facility] Employee Hotline: [phone] ? [facility] Employee Boost appointment for 24/04 emotional support: [phone] If you are finding it more difficult [...] CNPTOUTREACH Patient Outreach (AMBCMG) Normal 0 02-10-2020 [place] [facility] VANESSA BACON ([id number]) 1995 [facility] Time Provider Department ([id number]) 02/10/20 DOMINGO GRIMES [facility] AM[facility] During your visit today, we recorded the following informati on about you: Domingo Grimes 02/10/2020 10:09 AM Signed Voice Message Hello, this is the [facility] calling, a member of y our household [...] [facility] patients may call: ? [facility]CF Nurse collection advisor at [phone] ? Their PCP Office Caregivers may call: ? [facility] Employee Hotline: [phone] ? [facility] Employee Boost appointment for 24/04 emotional support: [phone] If you are finding it more difficult [...] during , antepartum*07/17/2014 0 12/12/2014 Active labor [XES1722] 10/24/2014 12/12/2014 Supervision of other normal , [...] 02/10/20 progress on 2020-01 PROGRESS HNO ID: [id number] Normal 02-09-2020 [place] Author: Eugenia (Rn) [facility] Service: ? [place] Author Type: Registered Nurse ([id number]) Type: Progress Notes Filed: 02/09/2020 11:52 AM Note Text: COVID-19 POSITIVE PATIENT OUTREACH DAILY CALL Monitoring Call: Day 16 from symptom onset 01/24/20 *continues to have a cough in the morning when I get up, bu t it is getting better. per pt Vivian, this is the [facility] calling, may I speak to Vanessa Bacon [...] [facility] patients may call: ? [facility] Nurse collection advisor at [phone] ? Their PCP Office Caregivers may call: ? [facility] Employee Hotline: [phone] [facility] Employee Boost appointment for 24/04 emotional support: Patient verbalizes understanding of information provided. Marces any further questions at this time. Please visit CDC.gov website for any updated information abo ut Coronavirus. You can also find information on the [facility] website. Additional information can be found on the [facility] and [facility] web sites: https://www.cdc.gov/coronavirus/2019-nCoV/index.html [email or web address] SIGNATURE: Eugenia Delatorre RN PATIENT NAME: Vanessa Bacon DATE: February 09, 2020 TIME: 11:49 AM cnptoutreach on CNPTOUTREACH Patient Outreach (FAMPAM) Normal 0 02-09-2020 [place] [facility] VANESSA BACON ([id number]) 1995 [facility] Date Time Provider Department ([id number]) 02/09/20 EUGENIA DELATORRE (RN) JOSE During your visit today, we recorded the following informati on about you: Eugenia Delatorre RN, RN 02/09/2020 11:52 AM Signed COVID-19 POSITIVE PATIENT OUTREACH DAILY CALL Monitoring Call: Day 16 from symptom onset 01/24/20 *continues to have a cough in the morning when I get up, but it is getting better. per pt Vivian, this is the [facility] calling, may I speak to Vanessa Bacon [...] [facility] patients may call: ? [facility]CF Nurse collection advisor at [phone] ? Their PCP Office Caregivers may call: ? [facility] Employee Hotline: [phone] [facility] Employee Boost appointment for 24/04 emotional support: [phone] Patient verbalizes understanding of information provid ed. Denies any further questions at this time. Please visit CDC.gov website for any updated information about Coronavirus. You can also find information on the [facility] website. Additional information can be found on [facility] and [facility] web sites: https://www.cdc.gov/coronavirus/2019-nCoV/index.html [email or web address] SIGNATURE: Eugenia Delaotrre RN PATIENT NAME: Vanessa Bacon DATE: February [...] during , antepartum*07/17/2014 0 12/12/2014 Active labor [LVO0933] 10/24/2014 12/12/2014 Supervision of other normal , [...] 02/09/20 progress on 2020-01 PROGRESS HNO ID: [id number] Normal 02-08-[address] [facility] Author: Linda Beckett ([place] ([id number]) Service: ? Author Type: Avian Keeper Type: Progress Notes Filed: 02/08/2020 12:09 PM Note Text: Voice Message Vivian, this is the [facility] calling, a member of you r household [...] [facility] patients may call: ? [facility]CF Nurse collection advisor at [phone] ? Their PCP Office Caregivers may call: ? [facility] Employee Hotline: [phone] ? [facility] Employee Boost appointment for 24/04 emotional support: [phone] If you are finding it more difficult [...] CNPTOUTREACH Patient Outreach (AMBCMG) Normal 0 02-08-2020 [place] [facility] VANESSA BACON ([id number]) 1995 [facility] Date Time Provider Department ([id number]) 02/08/20 LINDA SABA) [facility] During your visit today, we recorded the following informati on about you: DEREK Silver 02/08/2020 12:09 PM Signed Voice Message Vivian, this is the [facility] calling, a member of y our household [...] [facility] patients may call: ? [facility]CF Nurse collection advisor at [phone] ? Their PCP Office Caregivers may call: ? [facility] Employee Hotline: [phone] ? [facility] Employee Boost appointment for 24/04 emotional support: [phone] If you are finding it more difficult [...] during , antepartum*07/17/2014 0 12/12/2014 Active labor [WGC1157] 10/24/2014 12/12/2014 Supervision of other normal , [...] 02/08/20 progress on 2020-01 PROGRESS HNO ID: [id number] Normal 02-07-[address] [facility] Author: Olivia (Adan) ADAN Denise [place] ([id number]) Service: ? Author Type: Registered Nurse Type: Progress Notes Filed: 03/09/2020 3:00 AM Note Text: Voice Message . Will put on schedule again to assess h ow patient bis doing. Vivian, this is the [facility] calling, a member of you r household [...] [facility] patients may call: ? [facility]CF Nurse collection advisor at [phone] ? Their PCP Office Caregivers may call: ? [facility] Employee Hotline: [phone] ? [facility] Employee Boost appointment for 24/04 emotional support: [phone] If you are finding it more difficult [...] CNPTOUTREACH Patient Outreach (NURSMN) Normal 0 02-07-2020 [place] [facility] VANESSA BACON ([id number]) 1995 F [facility] Time Provider Department () 02/07/20 OLIVIA DENISE (RN) NURSMN During your visit today, we recorded the following informati on about you: Olivia Denise RN, RN 03/09/2020 3:00 AM Signed Voice Message DAy . Will put on schedule again to assess h ow patient bis doing. Vivian, this is the [facility] calling, a member of y our household [...] [facility]CF patients may call: ? [facility]CF Nurse collection advisor at [phone] ? Their PCP Office Caregivers may call: ? [facility] Employee Hotline: [phone] ? [facility] Employee Boost appointment for 24/04 emotional support: [phone] If you are finding it more difficult [...] during , antepartum*07/17/2014 0 12/12/2014 Active labor [PYR3107] 10/24/2014 12/12/2014 Supervision of other normal , [...] 03/09/20 progress on 2020-01 PROGRESS HNO ID: [id number] Normal 02-06-2020 [place] Author: Yash Zambrano (Oa) [facility] Service: ? [place] Author Type: Orchid Transplanter ([id number]) Type: Progress Notes Filed: 02/06/2020 11:42 AM Note Text: COVID-19 POSITIVE PATIENT OUTREACH DAILY CALL Monitoring Call: Day 13 from symptom onset 01/24/20 Vivian, this is the [facility] calling, may I speak to Vanessa Bacon [...] [facility] patients may call: ? [facility]CF Nurse collection advisor at [phone] ? Their PCP Office Caregivers may call: ? [facility] Employee Hotline: [phone] [facility] Employee Boost appointment for 24/04 emotional support: Patient verbalizes understanding of information provided. Marces any further questions at this time. Please visit CDC.gov website for any updated information abo ut Coronavirus. You can also find information on the [facility] website. Additional information can be found on the [facility] and [facility] web sites: https://www.cdc.gov/coronavirus/2019-nCoV/index.html [email or web address]://[email or web address]/[email or web address] SIGNATURE: BRYAN Webb PATIENT NAME: Vanessa Alan Nagi ruth DATE: February 06, 2020 TIME: 11:39 AM cnptoutreach on CNPTOUTREACH Patient Outreach (AMBCMG) Normal 0 02-06-2020 [place] [facility] BACONVANESSA ([id number]) 1995 [facility] Time Provider Department ([id number]) 02/06/20 Yash VIDAL (ROBERT) [facility] During your visit today, we recorded the following informati on about you: BRYAN Wbeb 02/06/2020 11:42 AM Signed COVID-19 POSITIVE PATIENT OUTREACH DAILY CALL Monitoring Call: Day 13 from symptom onset 01/24/20 Vivian, this is the [facility] calling, may I speak to Vanessa Bacon [...] [facility] patients may call: ? [facility]CF Nurse collection advisor at [phone] ? Their PCP Office Caregivers may call: ? [facility] Employee Hotline: [phone] [facility] Employee Boost appointment for 24/04 emotional support: Patient verbalizes understanding of information provid ed. Denies any further questions at this time. Please visit CDC.gov website for any updated information about Coronavirus. You can also find information on the [facility] website. Additional information can be found on [facility] and [facility] web sites: https://www.cdc.gov/coronavirus/2019-nCoV/index.html https://[email or web address]/coronavirus SIGNATURE: Yash Vidal OPTH-A PATIENT NAME: Vanessa [...] during , antepartum*07/17/2014 0 12/12/2014 Active labor [LQE7481] 10/24/2014 12/12/2014 Supervision of other normal , [...] 02/06/20 progress on 2020-01 PROGRESS HNO ID: [id number] Normal 02-05-2020 [place] Author: Yash Zambrano (Oa) [facility] Service: ? [place] Author Type: Orchid Transplanter ([id number]) Type: Progress Notes Filed: 02/05/2020 10:13 AM Note Text: COVID-19 POSITIVE PATIENT OUTREACH DAILY CALL Monitoring Call: Day 12 from symptom onset 01/24/20 Vivian, this is the [facility] calling, may I speak to Vanessa Bacon [...] [facility] patients may call: ? [facility] Nurse collection advisor at [phone] ? Their PCP Office Caregivers may call: ? [facility] Employee Hotline: [phone] [facility] Employee Boost appointment for 24/04 emotional support: Patient verbalizes understanding of information provided. Marces any further questions at this time. Please visit CDC.gov website for any updated information abo ut Coronavirus. You can also find information on the [facility] website. Additional information can be found on the [facility] and [facility] web sites: https://www.cdc.gov/coronavirus/2019-nCoV/index.html https://[email or web address] SIGNATURE: BRYAN Webb PATIENT NAME: Vanessa Alan Nagi ruth DATE: February 05, 2020 TIME: 10:09 AM cnptoutreach on CNPTOUTREACH Patient Outreach (AMBCMG) Normal 0 02-05-2020 [place] [facility] VANESSA BACON ([id number]) 1995 [facility] Date Time Provider Department ([id number]) 02/05/20 Yash VIDAL () [facility] During your visit today, we recorded the following informati on about you: BRYAN Webb 02/05/2020 10:13 AM Signed COVID-19 POSITIVE PATIENT OUTREACH DAILY CALL Monitoring Call: Day 12 from symptom onset 01/24/20 Vivian, this is the [facility] calling, may I speak to Vanessa Alan [...] [facility]CF patients may call: ? [facility]CF Nurse collection advisor at [phone] ? Their PCP Office Caregivers may call: ? [facility] Employee Hotline: [phone] [facility] Employee Boost appointment for 24/04 emotional support: Patient verbalizes understanding of information provid ed. Denies any further questions at this time. Please visit CDC.gov website for any updated information about Coronavirus. You can also find information on the [facility] website. Additional information can be found on [facility] and [facility] web sites: https://www.cdc.gov/coronavirus/2019-nCoV/index.html https://[email or web address]/coronavirus SIGNATURE: Yash Vidal, OPTH-A PATIENT NAME: Vanessa ruth DATE: February 05, 2020 TIME: 10:09 AM Allergies As of Date: 02/05/2020 (No Known Allergies) Date Reviewed: 04/15/2019 Reviewed by: Jonn Flores MD - Fully Assessed Reason for Visit: Covid Follow Up [4117] Prescriptions as of 02/05/2020 Sig: MIRENA INTRAUTERINE by INTRAUTERINE route. IBUPROFEN 600 MG TABLET Take 1 tablet by mouth every * Problem List As Of Date 02/05/2020 Noted Resolved LUMBAGO [M54.5] 01/14/2009 Metacarpal bone fracture [S62.309A] 02/25/2011 ADD (attention deficit disorder) [F98.8] 04/22/2013 Supervision of normal first [Z34.00] 04/09/2014 Rh negative status during , antepartum*07/17/2014 0 12/12/2014 Active labor [MFY6940] 10/24/2014 12/12/2014 Supervision of other normal , [...] 02/05/20 progress on 2020-01 PROGRESS HNO ID: [id number] Normal 02-04-[address] [facility] Author: Bela Vidal (Tech) [place] ([id number]) Service: ? Author Type: Avian Keeper Type: Progress Notes Filed: 02/04/2020 9:08 AM Note Text: Voice Message Instablogs, this is the [facility] calling, a member of you r household [...] [facility] patients may call: ? [facility]CF Nurse collection advisor at [phone] ? Their PCP Office Caregivers may call: ? [facility] Employee Hotline: [phone] ? [facility] Employee Boost appointment for 24/04 emotional support: [phone] If you are finding it more difficult to breathe, or more blyane rt of breath when walking or climbing stairs, please go to the nearest ED . Inform the staff that you are COVID positive and you are having more sh ortness of breath while doing activities. SIGNATURE: Jazmin Vila PATIENT NAME: Vanessa Bacon DATE: February 04, 2020 TIME: 9:07 AM cnptoutreach on CNPTOUTREACH Patient Outreach ([facility]BCMG) Normal 0 02-04-2020 [place] [facility] VANESSA BACON ([id number]) 1995 [facility] Date Time Provider Department ([id number]) 02/04/20 BELA VIDAL ([facility]) [facility] During your visit today, we recorded the following informati on about you: Jazmin Vila 02/04/2020 9:08 AM Signed Voice Message Hello, this is the [facility] calling, a member of y our household [...] [facility]CF patients may call: ? [facility]CF Nurse collection advisor at [phone] ? Their PCP Office Caregivers may call: ? [facility] Employee Hotline: 863.840.1947 ? [facility] Employee Boost appointment for 24/04 emotional support: [phone] If you are finding it more difficult [...] during , antepartum*07/17/2014 0 12/12/2014 Active labor [RPH1830] 10/24/2014 12/12/2014 Supervision of other normal , [...] 02/04/20 progress on 2020-01 PROGRESS HNO ID: [id number] Normal 02-03-[address] [facility] Author: Kurt Mcconnell (Tech) [place] ([id number]) Service: ? Author Type: Avian Keeper Type: Progress Notes Filed: 02/03/2020 9:57 AM Note Text: Voice Message day 10 Disposition: Unable to reach, Left Voicemail - Continue [place], this is the [facility] calling, a member of you r household [...] [facility] patients may call: ? [facility]CF Nurse collection advisor at [phone] ? Their PCP Office Caregivers may call: ? [facility] Employee Hotline: [phone] ? [facility] Employee Boost appointment for 24/04 emotional support: [phone] If you are finding it more difficult [...] CNPTOUTREACH Patient Outreach ([facility]) Normal 0 02-03-2020 [place] [facility] VANESSA BACON ([id number]) 1995 [facility] Time Provider Department ([id number]) 02/03/20 KURT MCCONNELL ([facility]) [facility] During your visit today, we recorded the following informati on about you: Jazmin Carlton 02/03/2020 9:57 AM Signed Voice Message day 10 Disposition: Unable to reach, Left Voicemail - Continue [place], this is the [facility] calling, a member of y our household [...] [facility]CF patients may call: ? [facility] Nurse collection advisor at [phone] ? Their PCP Office Caregivers may call: ? [facility] Employee Hotline: [phone] ? [facility]CF Employee Boost appointment for 24/04 emotional support: [phone] If you are finding it more difficult [...] during , antepartum*07/17/2014 0 12/12/2014 Active labor [IGF8114] 10/24/2014 12/12/2014 Supervision of other normal , [...] 02/03/20 progress on 2020-01 PROGRESS HNO ID: [id number] Normal 02-02-2020 [facility] Author: Raymond Roberson (Oa) ([id number]) Service: ? Author Type: Orchid Transplanter Type: Progress Notes Filed: 02/02/2020 3:37 PM Note Text: Voice Message Rings busy and unable to leave message. Day 9 from onset 01/24/2020 SIGNATURE: Bryan Ivey PATIENT NAME: Vanessa ruth DATE: February 02, 2020 TIME: 3:32 PM cnptoutreach on CNPTOUTREACH Patient Outreach ([facility]) Normal 0 02-02-2020 [place] [facility] VANESSA BACON ([id number]) 1995 [facility] Time Provider Department ([id number]) 02/02/20 RAYMOND ROBERSON (OA) [facility] During your visit today, we recorded the [...] Assessed Reason for Visit: Covid Follow Up [5357] Prescriptions as of 02/02/2020 Sig: MIRENA INTRAUTERINE by INTRAUTERINE route. IBUPROFEN 600 MG TABLET Take 1 tablet by mouth every * Problem List As Of Date 02/02/2020 Noted Resolved LUMBAGO [M54.5] 01/14/2009 Metacarpal bone fracture [S62.309A] 02/25/2011 ADD (attention deficit disorder) [F98.8] 04/22/2013 Supervision of normal first [Z34.00] 04/09/2014 Rh negative status during , antepartum*07/17/2014 0 12/12/2014 Active labor [BSV8501] 10/24/2014 12/12/2014 Supervision of other normal , [...] 02/02/20 progress on 2020-01 PROGRESS HNO ID: [id number] Normal 02-01-2020 [place] Author: Emma Membreno (Aud) [facility] Service: ? [place] Author Type: Ballet Master/Mistress ([id number]) Type: Progress Notes Filed: 02/01/2020 12:40 PM Note Text: COVID-19 POSITIVE PATIENT OUTREACH DAILY CALL Monitoring Call: Day 8 from symptom onset 01/24/20 (Populate d via order specific question [id number] - [facility] COVID-19 DATE OF SYMPTOMS ONS ET.) Vivian, this is the [facility] calling, may I speak to Vanessa Bacon [...] [facility] patients may call: ? [facility] Nurse collection advisor at [phone] ? Their PCP Office Caregivers may call: ? [facility] Employee Hotline: [phone] [facility] Employee Boost appointment for 24/04 emotional support: [phone] Patient verbalizes understanding of information provided. Osmar nies any further questions at this time. Please visit CDC.gov website for any updated information abo ut Coronavirus. You can also find information on the [facility] website. Additional information can be found on the CDC and [facility] web sites: https://www.cdc.gov/coronavirus/2019-nCoV/index.html https://[facility].org/coronavirus SIGNATURE: Emma Price PATIENT NAME: Vanessa Purdy rt DATE: February 01, 2020 TIME: 12:35 PM cnptoutreach on CNPTOUTREACH Patient Outreach ([facility]) Normal 0 02-01-2020 [place] VANESSA Edwards ([id number]) 1995 [facility] Date Time Provider Department ([id number]) 02/01/20 EMMA LACEY (AUD)AMBG During your visit today, we recorded the following informati on about you: Emma Price 02/01/2020 12:40 PM Signed COVID-19 POSITIVE PATIENT OUTREACH DAILY CALL Monitoring Call: Day 8 from symptom onset 01/24/20 (Populate d via order specific question [id number] - [facility] COVID-19 DATE OF SYMPTOMS ONS ET.) Vivian, this is the [facility] calling, may I speak to Vanessa Bacon [...] like to speak with a social work merchandise flow team member to help give you support for any of these needs? No It can be normal to feel anxious or down during a time lik e this. Would you like to talk to a mental health professional abo me how you have been feeling? No Patient [...] [facility] patients may call: ? [facility] Nurse collection advisor at [phone] ? Their PCP Office Caregivers may call: ? [facility] Employee Hotline: [phone] [facility] Employee Boost appointment for 24/04 emotional support: Patient verbalizes understanding of information provid ed. Denies any further questions at this time. Please visit CDC.gov website for any updated information about Coronavirus. You can also find information on the [facility] website. Additional information can be found on [facility] and [facility] web sites: https://www.cdc.gov/coronavirus/2019-nCoV/index.html https://[facility].org/coronavirus SIGNATURE: Emma Price PATIENT NAME: Vanessa Purdy [...] during , antepartum*07/17/2014 0 12/12/2014 Active labor [YOV5886] 10/24/2014 12/12/2014 Supervision of other normal , [...] 02/01/20 progress on 2020-01 PROGRESS HNO ID: [id number] Normal 01-31-[address] [facility] Author: Yash Zambrano (Oa) [place] ([id number]) Service: ? Author Type: Orchid Transplanter Type: Progress Notes Filed: 01/31/2020 11:03 AM Note Text: Voice Message MAIL BOX FULL Day 7 Hello, this is the [facility] calling, a member of you r household [...] [facility] patients may call: ? [facility] Nurse collection advisor at [phone] ? Their PCP Office Caregivers may call: ? [facility] Employee Hotline: [phone] ? [facility] Employee Boost appointment for 24/04 emotional support: [phone] If you are finding it more difficult [...] CNPTOUTREACH Patient Outreach ([facility]) Normal 0 01-31-2020 [place] [id number] 1995 [facility] Time Provider Department ([id number]) 01/31/20 Yash VIDAL (ROBERT) [facility] During your visit today, we recorded the following informati on about you: BRYAN Webb 01/31/2020 11:03 AM Signed Voice Message MAIL BOX FULL Helyris, this is the [facility] calling, a member of y our household [...] [facility] patients may call: ? [facility] Nurse collection advisor at [phone] ? Their PCP Office Caregivers may call: ? [facility] Employee Hotline: [phone] ? [facility] Employee Boost appointment for 24/04 emotional support: [phone] If you are finding it more difficult [...] during , antepartum*07/17/2014 0 12/12/2014 Active labor [GIG3422] 10/24/2014 12/12/2014 Supervision of other normal , [...] 01/31/20 progress on 2020-01 PROGRESS HNO ID: [id number] Normal 01-30-2020 [place] Author: Veronica Newton (Tech) [facility] Service: ? [place] Author Type: Avian Keeper ([id number]) Type: Progress Notes Filed: 01/30/2020 10:14 AM Note Text: COVID-19 POSITIVE PATIENT OUTREACH DAILY CALL Monitoring Call: Day 6 from symptom onset 01/24/20 (Populate d via order specific question [id number] - [facility] COVID-19 DATE OF SYMPTOMS ONS ET.) Rukhsanayris, this is the [facility] calling, may I speak to Vanessa Bacon [...] 24 hours? Yes Refer to CDC and [facility] website Referred to Lizzy es Are you [...] [facility] patients may call: ? [facility] Nurse collection advisor at [phone] ? Their PCP Office Caregivers may call: ? [facility] Employee Hotline: [phone] [facility] Employee Boost appointment for 24/04 emotional support: Patient verbalizes understanding of information provided. De nies any further questions at this time. Please visit CDC.gov website for any updated information abo ut Coronavirus. You can also find information on the [facility] website. Additional information can be found on the [facility] and [facility] web sites: https://www.cdc.gov/coronavirus/2019-nCoV/index.html https://[facility].org/coronavirus SIGNATURE: Jazmin Brandt PATIENT NAME: Vanessa ruth DATE: January 30, 2020 TIME: 10:07 AM cnptoutreach on CNPTOUTREACH Patient Outreach ([facility]) Normal 0 01-30-2020 [place] Martina BACONVANESSA Alan ([id number]) 1995 [facility] Time Provider Department ([id number]) 01/30/20 VERONICA NEWTON (JAZMIN) [facility] During your visit today, we recorded the following informati on about you: Jazmin Brandt 01/30/2020 10:14 AM Signed COVID-19 POSITIVE PATIENT OUTREACH DAILY CALL Monitoring Call: Day 6 from symptom onset 01/24/20 (Populate d via order specific question [id number] - [facility] COVID-19 DATE OF SYMPTOMS ONS ET.) Vivian, this is the [facility] calling, may I speak to Vanessa Bacon [...] the past 24 hours? Yes Refer to [facility] and [facility] website Referred to Lizzy es Are you [...] like to speak with a social work merchandise flow team member to help give you support for any of these needs? No It can be normal to feel anxious or down during a time lik e this. Would you like to talk to a mental health professional abo me how you have been feeling? No Advanced [...] [facility] patients may call: ? [facility] Nurse collection advisor at [phone] ? Their PCP Office Caregivers may call: ? [facility] Employee Hotline: [phone] [facility] Employee Boost appointment for 24/04 emotional support: [phone] Patient verbalizes understanding of information provid ed. Denies any further questions at this time. Please visit CDC.gov website for any updated information about Coronavirus. You can also find information on the [facility] website. Additional information can be found on [facility] and [facility] web sites: https://www.cdc.gov/coronavirus/2019-nCoV/index.html https://[facility].org/coronavirus SIGNATURE: Jazmin Brandt PATIENT NAME: Vanessa ruth [...] during , antepartum*07/17/2014 0 12/12/2014 Active labor [IIZ1595] 10/24/2014 12/12/2014 Supervision of other normal , [...] on 2020-01-29 CNPN Telephone (CATHMN) Normal 01-29-2020 [place] VANESSA Edwards ([id number]) 1995 [place] Date Time Provider Department ([id number]) 01/29/20 TELLO SHOEMAKER (RN) CATHMN During your visit today, we recorded the following informati on about you: Tello Gali 01/29/2020 12:35 PM Signed Called patient at this time for follow up after receiving KS12ID [employer] consent. Pt did not answer and mailbox was full, unable to leave Answer.To message. Tello Gali RN Pager: [phone] Allergies As of Date: 01/29/2020 (No Known [...] during , antepartum*07/17/2014 0 12/12/2014 Active labor [KFZ0961] 10/24/2014 12/12/2014 Supervision of other normal , [...] 01/29/20 progress on 2020-01 PROGRESS HNO ID: [id number] Normal 01-28-[address] [facility] Author: Harjit Gillis) ADAN Davis [place] ([id number]) Service: ? Author Type: Registered Nurse Type: [...] addressed. Coordinator: Harjit Davis RN AND Pager: [phone] PROGRESS HNO ID: [id number] Normal 01-28-[address] [facility] Author: Tiffanie LynneRn) ADAN Sewell [place] ([id number]) Service: ? Author Type: Registered Nurse Type: Progress Notes Filed: 01/28/2020 10:37 AM Note Text: COVID-19 POSITIVE PATIENT OUTREACH INTAKE Reason for call: Notification of Positive Results and Intake Vivian, this is the [facility] calling, may I speak to Vanessa Bacon [...] naire will come to you through your [employer] account. May I sign yo u up [...] [facility] patients may call: ? [facility] Nurse collection advisor at [phone] ? Their PCP Office Caregivers may call: ? [facility] Employee Hotline: [phone] [facility] Employee Boost appointment for 24/04 emotional support: Patient verbalizes understanding of information provided. Marces any further questions at this time. Please visit CDC.gov website for any updated information abo ut Coronavirus. You can also find information on the [facility] website. Additional information can be found on the CDC and [facility] web sites: https://www.cdc.gov/coronavirus/2019-nCoV/index.html https://[facility].org/coronavirus SIGNATURE: Tiffanie Sewell RN PATIENT NAME: Vanessa Alan Jey rt DATE: January 28, 2020 TIME: 10:30 AM cnptoutreach on CNPTOUTREACH Patient Outreach (PANEHI) Normal 0 01-28-2020 [place] [facility] JORDIVANSESA ([id number]) 1995 [facility] Date Time Provider Department ([id number]) 01/28/20 TIFFANIE SEWELL (RN) FRANCISCO JAVIER During your visit today, we recorded the following informati on about you: Tiffanie Sewell, RN, RN 01/28/2020 10:37 AM Signed COVID-19 POSITIVE PATIENT OUTREACH INTAKE Reason for call: Notification of Positive Results and Intake Vivian, this is the [facility] calling, may I speak to Vanessa Bacon [...] questionnaire will come to you through your [employer] ac count. May I sign you up [...] like to speak with a social work merchandise flow team member to help give you support for [...] [facility] patients may call: ? [facility] Nurse collection advisor at [phone] ? Their PCP Office Caregivers may call: ? [facility] Employee Hotline: [phone] [facility] Employee Boost appointment for 24/04 emotional support: Patient verbalizes understanding of information provid ed. Denies any further questions at this time. Please visit CDC.gov website for any updated information about Coronavirus. You can also find information on the [facility] website. Additional information can be found on [facility] and [facility] web sites: https://www.cdc.gov/coronavirus/2019-nCoV/index.html https://[facility].org/coronavirus SIGNATURE: Tiffanie Sewell RN PATIENT NAME: Vanessa Purdy rt DATE: January 28, 2020 TIME: 10:30 AM Allergies As of Date: 01/28/2020 (No Known Allergies) Date Reviewed: 04/15/2019 Reviewed by: Jonn Flores MD - Fully Assessed Reason for Visit: Covid Follow Up [3887] Cmt: Intake, Day 5 Symptom onset Reason For Visit History Recorded Order(s):[employer] COVID-19 HOME MONITORING [[id number]] Order #: [id number] Prescriptions as of 01/28/2020 Sig: MIRENA INTRAUTERINE by INTRAUTERINE route. IBUPROFEN 600 MG TABLET Take 1 tablet by mouth every * Problem List As Of Date 01/28/2020 Noted Resolved LUMBAGO [M54.5] 01/14/2009 Metacarpal bone fracture [S62.309A] 02/25/2011 ADD (attention deficit disorder) [F98.8] 04/22/2013 Supervision of normal first [Z34.00] 04/09/2014 Rh negative status during , antepartum*07/17/2014 0 12/12/2014 Active labor [PYQ1854] 10/24/2014 12/12/2014 Supervision of other normal , [...] 2020-01-28 CNOV Office Visit (CARIMN) Normal 01-28-20 [place] [facility] VANESSA BACON ([id number]) 1995 [facility] Date Time Provider Department ([id number]) 01/28/20 7:00 AM RESEARCH NURSE CARD IMAGING [...] addressed. Coordinator: Harjit Davis RN AND Pager: [phone] Referring Provider: ANGELIA SEVILLA [[id number]] Allergies As of Date: 01/28/2020 (No Known [...] during , antepartum*07/17/2014 0 12/12/2014 Active labor [JRM6541] 10/24/2014 12/12/2014 Supervision of other normal , [...] 01/28/20 progress on 2020-01 PROGRESS HNO ID: [id number] Normal 01-27-[address] [facility] Author: Suzan Izaguirre) Maury [place] ([id number]) Service: ? Author Type: Physician Hr Representative Type: Progress Notes Filed: 01/27/2020 11:36 AM Note Text: This Team Access Model visit is a virtual encounter. It requ ired patient-provider interaction for the medical decision making as documented below. HIPAA secured video was used for evaluation of this patient. Location of patient: [place] Telemedicine Evaluation for COVID-19 Infection SUBJECTIVE: Vanessa Bacon is a 24 year old year old female who presents for the past 3 days with symptoms that are:gradually worsening. 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 *If the patient is in [place] and in a high risk category and h as at least 2 symptoms of : fever, cough, shortness of breath, myalgia, di arrhea, anosmia, loss of taste, then the patient may qualify for an ambulatory [facility] COVID-19 test. Route the chart to the [...] person care - All questions answered SIGNATURE: Szuan Mendiola PA-C DATE: January 27, 2020 coronavirus 2019 on 2020-01-27 COVID 19 Positive for Negative for Critically 01-27-2020 Emile sweet Result [employer] COVID19 (SARS COVID19 (SARS abnormal Cl inic CoV2) by PCR. CoV2) by PCR. Emile sweet ([id number]) Comment: Result Comment: This test wa s developed and its performance characteristics determined by [facility]'s [facility] [employer]. This test has been authorized by FDA [...] 01/27/20 2310 Performed By: #### COVID ### #[facility] [place], [place] [phone] COVID 19 Source [employer] Nasopharyngeal Swab Normal 0 01-27-2020 [facility] ([id number]) Comment: Performed By: #### COVID ### #[facility] [address] [place], [place] [phone] jiann on 2020-01-27 CNPN Telephone (COVHLD) Normal 01-27-2020 [place] [facility] BACONVANESSA ([id number]) 1995 [facility] Time Provider Department ([id number]) 01/27/20 CHELSY GARCIAS (JIAN) BABITA During your visit today, we recorded the following informati on about you: Chelsy Garcias APRN.CNP 01/27/2020 11:38 AM Signed Vivian, Thank you for the referral, this patient meets criteria for COVID-19 testing in accordance with criteria fou nd on the [facility] Intranet COVID19 Toolkit as of January 27, 2020 11:37 AM Please inform the patient that the test has been ordered, an d that the [facility] Scheduling Department will call to schedule test within 8-12 hours. In the meantime please advise the patient to self-fer rantine in accordance with CDC recommendations. Please extend our best wishes to the patient. Very Respectfully, Chelsy Garcias APRN.CNP Allergies As of Date: 01/27/2020 (No Known Allergies) Date Reviewed: 04/15/2019 Reviewed by: Jonn Flores MD - Fully Assessed Reason for Visit: Covid-19 Hotline [9989] Primary Visit Diagnosis:Suspected COVID-19 virus infection [ R68.89] Order(s):2019 CORONAVIRUS [SQCOVID] Order #: [id number] FUTU RE Prescriptions as of 01/27/2020 Sig: MIRENA INTRAUTERINE by INTRAUTERINE route. IBUPROFEN 600 MG TABLET Take 1 tablet by mouth every * Problem List As Of Date 01/27/2020 Noted Resolved LUMBAGO [M54.5] 01/14/2009 Metacarpal bone fracture [S62.309A] 02/25/2011 ADD (attention deficit disorder) [F98.8] 04/22/2013 Supervision of normal first [Z34.00] 04/09/2014 Rh negative status during , antepartum*07/17/2014 0 12/12/2014 Active labor [LLV5082] 10/24/2014 12/12/2014 Supervision of other normal , [...] (NOC) Normal 01-27-2020 Sujit dennis VANESSA Edwards ([id number]) 1995 [place] [facility] [place] Date Time Provider Department ([id number]) 01/27/20 NICOLE PURCELL (RN) JOY During your visit today, we recorded the following informati on about you: Nicole Purcell RN, RN 01/27/2020 2:04 PM Signed Patient called asking to schedule for COVID-19, she states test is in [facility]. Patient transferred to [phone]. Nicole Purcell RN January 27, 2020 2:04 PM Allergies As of Date: 01/27/2020 (No Known Allergies) Date Reviewed: 04/15/2019 Reviewed by: Jonn Flores MD - Fully Assessed Reason for Visit: Covid-19 Hotline [2325] Prescriptions as of 01/27/2020 Sig: MIRENA INTRAUTERINE by INTRAUTERINE route. IBUPROFEN 600 MG TABLET Take 1 tablet by mouth every * Problem List As Of Date 01/27/2020 Noted Resolved LUMBAGO [M54.5] 01/14/2009 Metacarpal bone fracture [S62.309A] 02/25/2011 ADD (attention deficit disorder) [F98.8] 04/22/2013 Supervision of normal first [Z34.00] 04/09/2014 Rh negative status during , antepartum*07/17/2014 0 12/12/2014 Active labor [XYW2414] 10/24/2014 12/12/2014 Supervision of other normal , [...] 01/27/20 progress on 2020-01 PROGRESS HNO ID: [id number] Normal 01-26-2020 [place] Author: [place] [facility] Service: ? [place] Author Type: Physician ([id number]) Type: Progress Notes Filed: 01/26/2020 7:28 AM Note Text: Visit Summary for Vanessa Bacon - Gender: Female - Date of : 1995 Date: - Duration: 8 minutes Patient: Vanessa Bacon Provider: Arie Drake Patient Contact Information Address [facility] [address] [place]; [place] [address] [phone] Visit Topics Fever , shortness of breathe [...] Family Physician.[Notification] Vanessa Bacon is located in [place]. [Notification] Vanessa Bacon has shared health history...[Notification] [...] unspecified Value: R50.9 Code: ICD-10-CM Procedures Value: 25746 Code: CPT-4 OFFICE/OUTPATIENT VISIT EST Value: 49495 Code: CPT-4 ONLINE E/M BY PHYS/QHP Medications [...] ath. Pulse ox 98. 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 PM: NoneMeds: [...] have a question or problem please call [phone] for prescription assistance2. Please print a copy [...] you may h ave Covid-19. Discontinuing [facility] recommendations for end ing home isolation are [...] try your primary care provider or the [facility]. If you would like to be rechecked by one of our providers, you may come on for a follow-up visit but usual fees will apply. Electronically signed by: Arie Drake( ) obsolete on 2019-10 OBSOLETE Refill (PIMCHR) Normal 10-09-2019 Sujit jeannie VANESSA Edwards ([id number]) 1995 [facility] Date Time Provider Department ([id number]) 10/09/19 TRICIA MONCADA PIMCHR During your visit [...] during , antepartum*07/17/2014 0 12/12/2014 Active labor [WGC9306] 10/24/2014 12/12/2014 Supervision of other normal , [...] 2019-10 OBSOLETE Refill (PEMDNA) Normal 10-05-2019 [facility] ([id number]) 1995 [place] Date Time Provider Department ([id number]) 10/05/19 TRICIA MONCADA PEMDNA During your visit [...] during , antepartum*07/17/2014 0 12/12/2014 Active labor [BWE0265] 10/24/2014 12/12/2014 Supervision of other normal , [...] on 2019-07 OBSOLETE Refill (PIMCHR) Normal 07-24-2019 [facility] VANESSA BACON ([id number]) 1995 [facility] Time Provider Department ([id number]) 07/24/19 TRICIA MONCADA PIMCHR During your visit [...] during , antepartum*INVALID FOR* 12/12/2014 Active labor [EHB7178] INVALID FOR*12/12/2014 Supervision of other normal , [...] (PIMCHR) Normal 07-24-2019 Sujit dennis VANESSA Edwards ([id number]) 1995 [facility] Time Provider Department ([id number]) 07/24/19 TRICIA MONCADA PIMCHR During your visit [...] during , antepartum*INVALID FOR* 12/12/2014 Active labor [ZMH7419] INVALID FOR*12/12/2014 Supervision of other normal , [...] 2019-07 OBSOLETE Refill (PEMDNA) Normal 07-23-2019 [facility] V[facility] ([id number]) 1995 [place] Date Time Provider Department ([id number]) 07/23/19 TRICIA MONCADA PEMDNA During your visit [...] during , antepartum*INVALID FOR* 12/12/2014 Active labor [UXU8014] INVALID FOR*12/12/2014 Supervision of other normal , [...] 07/23/19 progress on 2019-04 PROGRESS HNO ID: [id number] Normal 04-15-[address] [facility] Author: Jonn Flores MD [place] ([id number]) Service: ? Author Type: Physician Type: Progress [...] external genitalia normal, normal Bartholin's glands, urethra, Marvel's glands, no vulvar lesions, no cervical lesi [...] 2019-04-15 CNOV Office Visit (OBGMEM) Normal 04-15-20 [place] [facility] VANESSA BACON ([id number]) 1995 [facility] Date Time Provider Department ([id number]) 04/15/19 1:15 PM JONN FLORES OBEM During [...] external genitalia normal, normal Bartholin's glands, urethra, Marvel's glands, no vulvar lesions, no cervical l [...] during , antepartum*INVALID FOR* 12/12/2014 Active labor [IOE8604] INVALID FOR*12/12/2014 Supervision of other normal , [...] 04/15/19 progress on 2019-04 PROGRESS HNO ID: [id number] Normal 04-11-[address] [facility] Author: Jonn Flores MD [place] ([id number]) Service: ? Author Type: Physician Type: Progress [...] IUD source: office provided IUD lot #: [id number] Exp date: 07/22 UNIVERSAL PROTOCOL / SAFETY [...] 2019-04-11 CNOV Office Visit (OBGMEM) Normal 04-11-20 [place] VANESSA Edwards ([id number]) 1995 [facility] Date Time Provider Department ([id number]) 04/11/19 11:15 AM JONN FLORES During your [...] IUD source: office provided IUD lot #: [id number] Exp date: 07/22 UNIVERSAL PROTOCOL / SAFETY [...] the off ice. Referring Provider: JONN FLORES [[id number]] Allergies As of Date: 04/11/2019 (No Known Allergies) Date Reviewed: 04/11/2019 Reviewed by: Jonn Flores MD - Fully Assessed Reason for Visit: Established Patient [175] Cmt: Mirena IUD Insertion Of IUD [291] Reason For Visit History Recorded Primary Visit Diagnosis:Encounter for IUD insertion [Z30.430 ] Other Visit Diagnosis: examination or test, pregnan cy unconfirmed [Z32.00] Order(s):HCG QUAL UR B/O [2475042] Order #: [id number] INSERT INTRAUTERINE DEVICE [4785660] Order #: [id number] [] levonorgestrel 20 mcg/24 hours (5 yrs) [...] during , antepartum*INVALID FOR* 12/12/2014 Active labor [GUK8154] INVALID FOR*12/12/2014 Supervision of other normal , [...] Encounter Status:Closed by JONN FLORES MD on 04/11/19 obsolete on 2019-03 OBSOLETE Refill (PEMDNA) Normal 03-16-2019 Sujit dennis Martina BACONVANESSA ([id number]) 1995 JENI [place] Date Time Provider Department ([id number]) 03/16/19 TRICIA MONCADA PEMDNA During your visit [...] during , antepartum*INVALID FOR* 12/12/2014 Active labor [OJN8313] INVALID FOR*12/12/2014 Supervision of other normal , [...] on 03/16/19 OBSOLETE Refill (PEMDNA) Normal 03-16-2019 [facility] VANESSA BACON ([id number]) 1995 [facility] Time Provider Department ([id number]) 03/16/19 TRICIA MONCADA PEMDNA During your visit [...] during , antepartum*INVALID FOR* 12/12/2014 Active labor [GJU0575] INVALID FOR*12/12/2014 Supervision of other normal , [...] 03/16/19 progress on 2019-03 PROGRESS HNO ID: [id number] Normal 03-14-[address] [facility] Author: Jonn Flores MD [place] ([id number]) Service: ? Author Type: Physician Type: Progress Notes Filed: 03/14/2019 2:52 PM Note Text: Vanessa Bacon is a 23 year old who presents for her annual gynecologic exam with complaints, irregular bleeding. Darwin waldrop past history obtained/updated/reviewed with today's visit. Pt states there are no significant changes to her past medic al and surgical history. Plate Molder offered: Patient declines. Menses: irregular- stopped breast [...] genitalia normal, normal Bartholin's glands , urethra, Marvel's glands, no vulvar lesions, no cervical lesions, [...] Chlamydia Amplif Negative for Chlamydia Normal 03-14-[address] [facility] trachomatis by Sudeep kaur ([id number]) amplification. Comment: Performed By: #### GCCT #### [facility] [address] Laborator[address] [place] [address] GC Amplification Negative for Neisseria Normal 03-14-[address] [facility] gonorrhoeae by Sudeep kaur (95605) amplification. Comment: Performed By: #### GCCT #### [facility] [address] [place] [address] [facility] Laborator s [address] [place] [address] GC/Chlam Amp Source Cervix Normal 03-14-2019 [facility] ([id number]) Comment: Performed By: #### GCCT #### [facility] [address] [place] [address] [facility] Laborator s [address] [place] [address] cnov on 2019-03-14 CNOV Office Visit (OBGMEM) Normal 03-14-20 19 [place] [facility] VANESSA BACON ([id number]) 1995 [facility] Date Time Provider Department ([id number]) 03/14/19 1:00 PM JONN FLORES During your [...] her past med ical and surgical history. Plate Molder offered: Patient declines. Menses: irregular- stopped b [...] genitalia normal, ian l Bartholin's glands, urethra, Marvel's glands, no vulvar lesions, no cervical l [...] health screening schedule is recommended by the [employer] (ACOG). Some [...] are the major food contributors in the [facility]. For example, 8oz of milk (whole, lowfat or skim) contains about 300mg calcium, 8oz of yo gurt contains 415mg. Nondairy sources include salmon and sardines and vegetables, davidson ch as Zambian cabbage, kale, and broccoli. Foods fortified with [...] d, calcium carbonate is found in some iibw-igf-pliafzl antacid products, such as Tums? and Rolaids?. [...] 12 GC/CHLAMYDIA DNA DET [SQGCCAMP] Order #: [id number]. #:[id number] Prescriptions as of 03/14/2019 Sig: IBUPROFEN 600 [...] during , antepartum*INVALID FOR* 12/12/2014 Active labor [BCN4497] INVALID FOR*12/12/2014 Supervision of other normal , [...] screening schedule is recommended by chitra littlejohn [employer] (ACOG). Some [...] and Vitamin D Supplementation (from the [facility] Office of Dietary Supplements 2011) Calcium is [...] in women change with age. The [facility] Institutes of Health (NIH) recommends: 1000mg [...] salmon and sardines and vegetables, such as Zambian cabbage, kale, and broccoli. Marcela ds fortified [...] be printed on the label. Calcium carb zaianb is the least expensive form. It must [...] calcium c arbonate is found in some emik-mai-olnupkk antacid products, such as Darío s? and [...] Immune D Workup See Below Normal 10-08-2017 [facility] ([id number]) Comment: Result Comment: screen negative - give 1 vial of Rh Immune Globulin. Performed By: #### RHIMD ### #[place] [address] progress on 2017-10 PROGRESS HNO ID: [id number]: Felicia Miranda (Res) LendeService: GynecologyAuthor Type: ResidentType: Progress Normal 10-08-2017 [place] NotesFiled: 10/08/2017 4:56 AMNote General Text: -----Attestation signed Medi [facility] by Quang Walls at 018 1:29 PMI saw and evaluated the patient. Discussed with the resident and Center agree withresident's finding s and plan as documented in the resident's note.Possible discharge home ([id number]) today.Quang Walls MD --OBSTETRICSPOSTPARTUM PROGRESS NOTESERVICE DATE: [...] decreasing.Ambulating without difficulty.OBJECTIVE:PHYSICA L EXAM:Heart: RR, S1, E7Tzuir: clear to auscultationAbdomen: Soft Bowel sounds present [...] on 201 05-02-07 NURSING PROG HNO ID: [id number]: Normal 0 10-08-2017 [place] Patterson (Rn) [facility] RNService: NursingAuthor Type: ([id number]) Registered NurseType: Nursing Progress NoteFiled: 10/08/2017 7:29 [...] 9. cnds on 2017-10-08 CNDS HNO ID: [id number]: Quang Schwarz 10-08-2017 [facility]sNick[facility] ([id number]) Type: PhysicianType: Discharge SummariesFiled: 10/08/2017 1:26 PMNote Text:OBSTETRICS DISCHARGE SUMMARYPATIENT NAME: Vanessa Bacon ADMISSION DATE: 10/07/2017MRN: [id number] DISCHARGE DATE: 10/08/2017Attending Physician: Jonn Flores, DAYeason [...] intraop on 05-02-07 ANES INTRAOP HNO ID: [id number]: Quang alan 10-08-2017 [facility] Anurag (Tree Surgeon Helper) SORAYA ArguellesService: [facility] AnesthesiologyAuthor Type: Nurse ([id number]) AnesthetistType: Anesthesia IntraOpFiled: 10/08/2017 5:42 AMNote Text:ANALGESIA [...] on 2017-10-07 ABO group O Normal 10-07-2017 [facility] (34250) Comment: Performed By: #### T&S ####[address] [place] [address] Antibody Screen POSITIVE Normal 10-07-2017 [facility] (39966) Comment: Performed By: #### T&S ####[address] [place] [address] Comment See Below Normal 10-07-2017 [facility] (15052) Comment: Result Comment: Screen &/or Xmatch expires in 3 days at 12 midnight. Redrawpatient at that time. Performed By: #### T&S ####[address] [place] [address] RH Type Negative Normal 10-07-2017 [facility] (05668) Comment: Performed By: #### T&S ####[address] [place] [address] progress on 2017-10 PROGRESS HNO ID: [id number]: Hung Kramer (Res) Normal 10-07-2017 [place] AbrahamService: ObstetricsAuthor Type: General ResidentType: Progress NotesFiled: 10/07/2017 1:23 Medical PMNote Text:OBSTETRICSINTRAPARTUM PROGRESS Center NOTESERVICE DATE: October 07, 2017SERVICE TIME: (37689) 1:18 PMSUBJECTIVEPatient with no complaints. and Reports [...] 1:18 PM PAGER/CONTACT #: PROGRESS HNO ID: [id number]: Ruben Arceo (Res) Normal 10-07-2017 Chelsi RawlsService: ObstetricsAuthor Type: General ResidentType: Progress NotesFiled: 10/07/2017 Medical 11:36 AMNote Text:OBSTETRICSINTRAPARTUM PROGRESS Center NOTESERVICE DATE: October 07, 2017SERVICE TIME: (72113) 11:32 AMSUBJECTIVEPatient with no complaints.OBJECTIVELAST VITALS:Pulse BP [...] 07, 2017 : 11:32 AM PAGER/CONTACT #: [phone] PROGRESS HNO ID: [id number]: Hung Kramer (Res) Normal 10-07-2017 [place]nancy Weinsteinervice: ObstetricsAuthor Type: General ResidentType: Progress NotesFiled: 10/07/2017 Medical 11:26 AMNote Text:OBSTETRICSINTRAPARTUM PROGRESS Center NOTESERVICE DATE: October 07, 2017SERVICE TIME: (26347) 11:18 AMSUBJECTIVEReports pain well controlled with IV [...] 11:18 AM PAGER/CONTACT #: PROGRESS HNO ID: [id number]: Hung Kramer (Res) Normal 10-07-2017 [place] Corinnaervice: ObstetricsAuthor Type: General ResidentType: Progress NotesFiled: 10/07/2017 9:23 Medical AMNote Text:OBSTETRICSINTRAPARTUM PROGRESS Center NOTESERVICE DATE: October 07, 2017SERVICE TIME: (59267) 9:20 AMSUBJECTIVEPatient with no complaints., Reports pain [...] 9:20 AM PAGER/CONTACT #: PROGRESS HNO ID: [id number]: Jonn Flores, Normal 10-07-2017 [place] MDService: ObstetricsAuthor Type: PhysicianType: General Progress NotesFiled: 10/08/2017 6:03 PMNote Medical Text:OBSTETRICSTRIAGE PROGRESS NOTESERVICE DATE: Center October 07, 2017SERVICE TIME: 7:22 (65284) AMSUBJECTIVEPatient's stated reason for arrival: ContractionsCHIEF COMPLAINT: [...] lb) 38.62PHYSICAL EXAM:General: WD, WNHeart: RR, S1, E3Rcfvf: clear to auscultationAbdomen: soft, nontender, no massesUterus: [...] on 201 05-02-06 NURSING PROG HNO ID: [id number]: Normal 0 10-07-2017 Chelsi Nicole (Rn) [facility] RNService: NursingAuthor Type: ([id number]) Registered NurseType: Nursing Progress NoteFiled: 10/07/2017 7:54 PMNote Text:Report received from Geeta Gan, RN @ 1500, viable female [id number]. This RN assumes care of pt ld note on LD HNO ID: [id number]: Alberto Kramer (Res) AbrahamService: ObstetricsAuthor Type: Normal 10-07-2017 [place] NOTE ResidentType: LANDD Delivery NoteFiled: 10/07/2017 4:25 PMNote General Text: -----Attestation Medical signed by Jerod Mckeon at 10/07/2017 5:32 PMI saw and evaluated the patient. Discussed with Cent er the resident and agree withr emerald's findings and plan as documented in the resident's note.I ([id number]) was present with residents supervising them doing delivery .Jonn Flores MD --OBSTETRICSDELI VERY SUMMARY - VAGINAL DELIV ERYGestational Age at Delivery: 60b6zXydopvv Date: 10/07/2017Service Time: 4:24 PMBg Alfonso Bacon [[id number]] Labor EventsRupture Date: 10/07/17Rupture Time: 1315Rupture Type: [...] gOne Minute : 9Five Minute : 9Code [place] Called: Allen digital ?sweep? of the vaginal canal was performed by the Resident andit was ascertained that no instrume nts or other foreign bodies areretained within the cavity.Mother and baby are stable and bonding and skin to skin. Baby is inmother's arms.SIGNATURE: Hung Hernandez MD PATIENT NAME: Ludy Alan HartDATE: October 07, 2017 : 4:23 PM history physical on 2017-10-07 HISTORY HNO ID: [id number]: Felicia Miranda (Res) LendeService: ObstetricsAuthor Type: ResidentType: Normal [place] PHYSICAL HANDPFiled: 10/07/2017 7:49 AMNote General Text: -----Attestation Medical signed by Jerod Mckeon at 10/07/2017 1:22 PMI saw and evaluated the patient. Discussed with the Center resident and agree withresid ent's findings and plan as documented in the resident's note.Admitted in (95052) labor, Amp for GBS+, Pit/AROm as needed, [...] B Streptococcus carrier), +RV culture, cara ntly ftystbkl34/09/2017- Chlamydia infection affecting 03/02/2017 Overview Note: + [...] equal, no thyromegalyLungs: clearHeart : RR, S1, J7Vhuiylk: soft, nontender, no massesUterus: soft, NTExtremities: tr [...] 0700 : Shweta Johnson RN)Contractions: Irregular ( [place] Adjusted) (10/07/17 0700 : Shweta Johnson RN)Frequency: [...] Erythrocyte distribution 13.2 11.7-14.4 % Normal 10-07 [facility] width Auto Ratio (RBC) System (73404) Comment: Performed By: #### CBC1 #### [facility] [place], [place] [address] Erythrocytes (RBC) 4.02 3.93-5.22 mil/cmm Normal 10-07-2017 [facility] (00 000) Comment: Performed By: #### CBC1 #### [facility] [place], [place] [address] Hematocrit (HCT) 36.6 34.1-44.9 % Normal 10-07-2017 [facility] (89365) Comment: Performed By: #### CBC1 #### [address] [address] Hemoglobin mass conc 12.0 11.2-15.7 g/dL Normal 8 [facility] (d) System (00 000) Comment: Performed By: #### CBC1 #### [place] [address] MCH 29.9 25.6-32.2 pg Normal 10-07-2017 [facility] (26796) Comment: Performed By: #### CBC1 #### [place] [address] MCHC mass conc (RBC) 32.8 31.6-34.8 % Normal 8 [facility] Proxible [facility] (66713) Comment: Performed By: #### CBC1 #### [place] [address] MCV 91.0 79.4-94.8 fl Normal 10-07-2017 [facility] (59899) Comment: Performed By: #### CBC1 #### [place] [address] Platelet mean volume (PMV) 9.8 9.4-12.3 fl Normal [facility] Proxible [facility] (00 000) Comment: Performed By: #### CBC1 #### [address] [address] Platelets 166 182-369 thou/cmm Low 10-07-2017 [facility] (91936) Comment: Performed By: #### CBC1 #### [facility] [place], [place] [address] RDW SD 44.4 36.4-46.3 fl Normal 10-07-2017 [facility] ([address]38) Comment: Performed By: #### CBC1 #### [facility] [place], [place] [address] WBC (Leukocytes) 11.65 3.98-10.04 thou/cmm High 10-07-2017 [facility] (00 000) Comment: Performed By: #### CBC1 #### [address] [address] antibody id on 2017 Antibody Id See Below Normal 10-07-2017 [facility] (82983) Comment: Result Comment: The patient has received RhoGam recently and may bedemonstrating Anti-D as a result of the injection. Performed By: #### ABID #### [address] [address] anes preop on 10-07 ANES PREOP HNO ID: [id number]: Quang alan 10-07-2017 [facility] (Tree Surgeon Helper) SORAYA ArguellesService: [facility] AnesthesiologyAuthor Type: Nurse (23046) AnesthetistType: Anesthesia PreOpFiled: 10/07/2017 8:26 AMNote Text:OB [...] of Sleep Apnea: DeniesHematocritDate Value Ref Range Bzcgvc6610/07/2017 36.6 34.1 - 44.9 % Final Platelet CountDate Value Ref Range Cxzxxj6010/07/2017 166 (L) 182 - 369 thou/cmm Final [...] by mouth. Disp: Rfl:Inpatient medications reviewed in [facility].I have interviewed and examined the patient. I have reviewed the medicalrecord , pertinent consults and/or the pre-anesthesia evaluation,pertinent labs, and test results.Significant changes in the patient's condition since the History andPhysical, not otherwise documented in primary service progress notes: No[place] voice center contains updated information obtained within 48 hours ofSurgery/Procedure.SIGNATURE: Quang Arguelles CRNA PATIENT NAME: Vanessa CrookTE: October 07, 2017 : 8:24 AM : 1995 anes intraop on 201 05-02-06 ANES INTRAOP HNO ID: [id number]: Quang alan 10-07-2017 Sanjay Kay Crnae: [facility] AnesthesiologyAuthor Type: Nurse (54085) AnesthetistType: Anesthesia IntraOpFiled: 10/07/2017 11:53 AMNote Text:ANESTHESIA PROGRESS NOTESERVICE DATE: 10/07/2017SERVICE TIME: 11:51 [id number] pt complaint of feeling too numb. Epidural pump off for 35 minutes.Resumed Epidural as prior program and record.SIGNATURE: Quang Arguelles CRNA PATIENT NAME: Vanessa Tony: October 07, 2017 : 11:51 AM PAGER/CONTACT #:ETX#[phone] ANES INTRAOP HNO ID: [id number]: Quang alan 10-07-2017 Sanjay Kay Crnae: [facility] AnesthesiologyAuthor Type: Nurse (22326) AnesthetistType: Anesthesia IntraOpFiled: 10/07/2017 9:18 AMNote Text:OB [...] Catheter in Epidural Space: 6 cmInterspace: approximately L3-H5Ykkrah of Attempts: 1Wet Tap Complication: NoDural Puncture [...] Reason Provider Location 10-07-2017 Ambulatory QUANG WALLS Facility:[facility] 03-13-2017 - Ambulatory LACI BARH [facility] 03-13-2017 JONN FLORES ([id number]) 10-07-2017 - Evaluation and 41 weeks gestation [facility] Facil ity:[place] 10-08-2017 management of of [facility]ONN [facility]OR[facility] [place] [facility] JONN FLORES 09-30-2017 Evaluation and CHARLEY [facility] Facility:[facility] management of CHARLEY [facility] inpatient [facility] 05-26-2020 - Patient encounter External Provider Sudeep [facility] 05-26-2020 procedure 05-26-2020 Results Only External Provider External-N onCCF Procedures Procedure Name Date Provider Location EXTERNAL IMAGING 05-26-2020 External Provider Tera Cli godfrey (89313) Plan of Treatment Plan Description Date Location DTAP,TDAP,TD (9 - Td) DTAP,TDAP,TD (9 - Td) 07-11-2027 [facility] (35041) INFLUENZA (#1) INFLUENZA (#1) [address] [facility] (69516) PAP TESTING PAP TESTING 02-29-[address] [facility] (23157) Immunizations Vaccine Notes Status Date Location DTaP (Age<7) diphtheria, tetanus (completed) 06-06-2000 [facility] toxoids and acellular (02021 ) pertussis vaccine DTaP (Age<7) diphtheria, tetanus (completed) 10-20-1997 [facility] toxoids and acellular (67184 ) pertussis vaccine DTaP (Age<7) diphtheria, tetanus (completed) 06-06-1996 [facility] toxoids and acellular (28040 ) pertussis vaccine DTaP (Age<7) diphtheria, tetanus (completed) 04-05-1996 [facility] toxoids and acellular (20777 ) pertussis vaccine DTaP (Age<7) diphtheria, tetanus (completed) 02-09-1996 [facility] toxoids and acellular (40402 ) pertussis vaccine Hib - 4 Dose Schedule haemophilus (completed) 10-20-1997 [facility] influenzae type b (94335) vaccine, HbOC conjugate Hib - 4 Dose Schedule haemophilus (completed) 06-06-1996 [facility] influenzae type b (75699) vaccine, HbOC conjugate Hib - 4 Dose Schedule haemophilus (completed) 04-05-1996 [facility] influenzae type b (88083) vaccine, HbOC conjugate Hib - 4 Dose Schedule haemophilus (completed) 02-09-1996 [facility] influenzae type b (71826) vaccine, HbOC conjugate Hepatitis B Peds/Adol hepatitis B vaccine, (completed) 06-06-[address] [facility] pediatric or (31464) pediatric/adolescent dosage Hepatitis B Peds/Adol hepatitis B vaccine, (completed) 02-09-[address] [facility] pediatric or (87524) pediatric/adolescent dosage Hepatitis B Peds/Adol hepatitis B vaccine, (completed) [address] [facility] pediatric or (91117) pediatric/adolescent dosage HUMAN PAPILLOMAVIRUS human papilloma virus (completed) 08-16-[address] [facility] QUADRIVALENT - Male and vaccine, quadrivalent (47315) Females HUMAN PAPILLOMAVIRUS human papilloma virus (completed) 05-11-[address] [facility] QUADRIVALENT - Male and vaccine, quadrivalent (77835) Females HUMAN PAPILLOMAVIRUS human papilloma virus (completed) 05-08-[address] [facility] QUADRIVALENT - Male and vaccine, quadrivalent (50568) Females Influenza Vaccine, influenza virus (completed) 07-18-2017 [facility] Split-Non Spec vaccine, unspecified (4419 5) formulation Influenza Vaccine, influenza virus (completed) 07-29-2014 [facility] Split-Non Spec vaccine, unspecified (4419 5) formulation MMR measles, mumps and (completed) 06-06-[address] [facility] rubella virus vaccine (40523 ) MMR measles, mumps and (completed) 02-06-[address] [facility] rubella virus vaccine (90796 ) Meningococcal Conj IM Meningococcal, MCV4, (completed) 05-08-[address] [facility] Unspec unspecified conjugate (29052 ) formulation(groups A, C, Y and W-135) IPV poliovirus vaccine, (completed) 06-06-2000 [facility] inactivated (21424) IPV poliovirus vaccine, (completed) 06-06-1996 [facility] inactivated (72527) IPV poliovirus vaccine, (completed) 04-05-1996 [facility] inactivated (09707) IPV poliovirus vaccine, (completed) 02-09-1996 [facility] inactivated (21967) Rho D Immune Globulin RHO(D) immune (completed) 10-08-2017 [facility] Inj globulin- IV or IM (84703) Rho D Immune Globulin RHO(D) immune (completed) 07-11-2017 [facility] Inj globulin- IV or IM (90160) Rho D Immune Globulin RHO(D) immune (completed) 10-25-2014 [facility] Inj globulin- IV or IM (81038) Rho D Immune Globulin RHO(D) immune (completed) 08-19-2014 [facility] Inj globulin- IV or IM (04035) Tdap (Age 7+) tetanus toxoid, (completed) 07-11-2017 [facility] linic reduced diphtheria (24036) toxoid, and acellular pertussis vaccine, adsorbed Tdap (Age 7+) tetanus toxoid, (completed) 08-19-2014 [facility] linic reduced diphtheria (86727) toxoid, and acellular pertussis vaccine, adsorbed Tdap (Age 7+) tetanus toxoid, (completed) 05-11-2010 [facility] lin reduced diphtheria (16638) toxoid, and acellular pertussis vaccine, adsorbed Payers Payer Name Policy Number Location [place] [employer] MEDICAID [id number] [facility] (80742) MOOJax MEDICAID [id number] 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 (27185) NHIS Tobacco use and exposure Never used 04-15-2019 [facility] (79612) Alcohol intake Current non-drinker of 04-15-[address] [facility] (40394) alcohol (finding) Sex Assigned At Not on file [facility] (90059) The following information is from the original [...] Documents on File Type Date Recorded Patient General Maintenance Technician Explanati on Advance Directive(s) 09/02/2017 1:54 PM [...] BE BASED ON THE PRIMARY CLINICAL RECORDS. [facility] provides no warranty or guarantee of the accuracy or completeness of information in this document. UNRECOGNIZED CONTENT PROVIDED BELOW FOR UNRECOGNIZED SECTION INFORMATION SOURCE DATE CREATED AUTHOR AUTHOR'S ORGANIZATIO N 03/23/2018 [facility] DATE CREATED AUTHOR AUTHOR'S ORGANIZATIO N 03/27/2018 [facility] DATE CREATED AUTHOR AUTHOR'S ORGANIZATIO N 03/28/2018 [facility] System DATE CREATED AUTHOR AUTHOR'S ORGANIZATIO N 03/09/2020 [facility] UNRECOGNIZED CONTENT PROVIDED BELOW FOR UNRECOGNIZED SECTION Source Comments In the event this information is protected by the Federal Confidentiality of Alcohol and Drug Abuse Patient Records regulations: The Federal rules restrict any use of the information to criminally investigate or prosecute any alcohol or drug abuse patient.[facility]
== END 2020-02-11 07:29 | disposition home or self-care (01) ==
LOC: ED 07:25
PROVIDERS: Emergency Provider Emergency Medicine
DX: R07.89 Other chest pain (principal); R10.13 Epigastric pain
CPT/HCPCS: 71045; 80048; 80076; 83690; 84703; 85025; 93005; 96374; 99285; J7030; A4216; J2405

== ENCOUNTER → 2020-09-14 16:45 | Outpatient (CLI) | payer MEDICAID, SELFPAY ==
[2020-09-14 17:47] LABS: Absolute Lymphocyte Count 2.86 X10^3/uL (0.83-4.51); Absolute Neutrophil Count 4.6 X10^3/uL (2.0-7.7); Basophil# 0.05 X10^3/uL; Basophil% 0.6 % (0-1); Eosinophil# 0.38 X10^3/uL; Eosinophils% 4.4 % (0-5); Hematocrit 40.7 % (37-47); Hemoglobin 13.5 g/dL (12.0-15.0); Lymphocyte # 2.86 X10^3/ul (4.0); Lymphocyte % 33.3 % (19-41); Mean Corp Hgb Conc 33.2 g/dL (32-36); Mean Corpuscular Hgb 29.3 pg (27.0-32.0); Mean Corpuscular Volume 88.3 fL (81-99); Mean Platelet Vol. 10.3 fl (6.2-12.0); Monocyte# 0.69 X10^3/uL; NRBC Flagged by Analyzer 0 % (0-5); Neutrophil # 4.58 X10^3/uL (2.7-7.7); Neutrophil % 53.5 % (47-70); Platelet Count 254 K/mm3 (150-450); RBC Distribution Width CV 12.1 % (11.6-14.6); RBC Distribution Width SD 38.9 fl (35.1-43.9); Red Blood Count 4.61 M/mm3 (4.2-5.4); White Blood Count 8.6 K/mm3 (4.4-11.0)
[2020-09-14 18:42] LABS: Hemoglobin A1c 5.2 % (3.8-5.6)
[2020-09-14 18:45] LABS: ALB/GLOB Ratio 1.2 RATIO (0.9-2.4); AST(SGOT) 22 U/L (15-37); Alanine Aminotransfer ALT/SGPT 38 U/L (13-56); Albumin, Serum 4.1 g/dL (3.2-5.0); Alkaline Phosphatase 102 U/L (45-117); Anion Gap 8 (5-15); BUN 13 mg/dL (7-18); BUN/Creat Ratio 15.7 RATIO (10-20); Calcium,Total 8.8 mg/dL (8.5-10.1); Chloride 107 mmol/L (98-107); Creatinine, Serum 0.83 mg/dL (0.55-1.02); EST Glomerular Filtration Rate 90 mL/min (>60); Est Glom Filt Rate - Afr Amer 109 mL/min (>60); Globulin 3.4 g/dL (2.2-4.2); Glucose 87 mg/dL (74-106); Potassium 3.8 mmol/L (3.5-5.1); Protein, Total 7.5 g/dL (6.4-8.2); Sodium Level 140 mmol/L (136-145); Thyroid Stim Hormone (TSH) 1.86 uIU/mL (0.358-3.74)
[2020-09-16 15:12] LABS: ANTINUCLEAR ANTIBODIES DIRECT Negative (Negative)
[2020-09-18 05:07] LABS: Immunoglobulin E 35 IU/mL (6-495)
[2020-09-18 11:02] LABS: Zinc, Plasma or Serum 78 ug/dL (56-134)
== END ==
PROVIDERS: PCP Family Medicine; Referring Provider Family Medicine; Visit Provider Family Medicine
DX: R51.9 Headache, unspecified (principal); R53.83 Other fatigue; R43.8 Other disturbances of smell and taste
CPT/HCPCS: 36415; 80053; 82785; 83036; 84443; 84630; 85025; 86038

== ENCOUNTER → 2020-10-09 13:58 | Outpatient (CLI) | payer MEDICAID, SELFPAY | PROVIDERS: PCP Family Medicine; Visit Provider Family Medicine | DX: L72.9 Follicular cyst of the skin and subcutaneous tissue, unspecified (principal) | CPT/HCPCS: 87070; 87077; 87186; 87205 ==

== ENCOUNTER 2021-01-06 16:54 | Emergency (ER) | payer MEDICAID, SELFPAY ==
[2021-01-06 16:55] VITALS: BP 150/105; PULSE 81; RESP 16; TEMP 36.4; O2SAT 99; BMI 34.9
[2021-01-06] MEDS: 0.9% Normal Saline 1,000 ML 999 ML IV (17:17)
[2021-01-06] MEDS: Ondansetron 4 MG/2 ML Vial IV (17:18)
--- NOTE | 2021-01-06 17:22 | ED.VISSUMM ---
- ER Visit Summary Date of Service: 01/06/21 Chief Complaint: Headache History of Present Illness: The patient is a 25 F presenting with headache. Patient states this started gradually on Monday. She denies recent trauma. She has been taking Tylenol and Ibuprofen at home. She had nausea vomiting x1 today. She denies fever. She is unsure if she may be . She denies other complaints. Physical Examination: Vitals are stable. Patient is afebrile. Alert no acute distress. HEENT exam is unremarkable. Neck is supple. No meningismus Lungs are clear and equal bilaterally. Heart is regular rate and rhythm. Abdomen is soft nontender nondistended. Extremities are unremarkable. Skin is warm and dry. No focal neurologic deficit. Remainder of exam is unremarkable. Emergency Department Course and Treatment: Patient was given IV fluids, Zofran. Urine test is negative. Patient was given Toradol IV. On reevaluation she is feeling much improved. She is comfortable with discharge home. Advised to follow-up with her primary care physician. Advised return to the ED for worsening complaints. Disposition: Discharge home Impression: Headache This note was generated with [employer] dictation software. It may contain incorrect words, spelling, and punctuation that were not noted in review of the chart prior to signing ED Disposition - Plan for ED Patient: Instructions: ED Headache Unspecified Referrals: Homero Rivera MD [Primary Care Provider] -
[2021-01-06 17:38] LABS: Internal QC Validated? YES +Cl - CLEAR BKGD; Pregnancy, Urine Negative Negative
[2021-01-06] MEDS: Ketorolac 30 MG/ML Syringe IV (17:54)
--- NOTE | 2021-01-06 18:28 | ED.DEP ---
ED Disposition - Plan for ED Patient: Instructions: ED Headache Unspecified Referrals: Homero Rivera MD [Primary Care Provider] -
== END 2021-01-06 18:34 | disposition home or self-care (01) ==
PROVIDERS: Emergency Provider Emergency Medicine; PCP Family Medicine
DX: R51.9 Headache, unspecified (principal); R11.2 Nausea with vomiting, unspecified
CPT/HCPCS: 81025; 96374; 96375; 99283; J7030; J2405

== ENCOUNTER → 2021-02-01 15:27 | Outpatient (CLI) | payer MEDICAID, SELFPAY ==
[2021-01-06 16:55] VITALS: BMI 34.9
[2021-02-01 17:33] LABS: Absolute Lymphocyte Count 2.27 X10^3/uL (0.83-4.51); Absolute Neutrophil Count 5.9 X10^3/uL (2.0-7.7); Basophil# 0.06 X10^3/uL; Basophil% 0.7 % (0-1); Eosinophil# 0.26 X10^3/uL; Eosinophils% 2.8 % (0-5); Hematocrit 43.5 % (37-47); Hemoglobin 13.5 g/dL (12.0-15.0); Lymphocyte # 2.27 X10^3/ul (0.83-4.51); Lymphocyte % 24.6 % (19-41); Mean Corpuscular Hgb 27.7 pg (27.0-32.0); Mean Corpuscular Volume 89.3 fL (81-99); Mean Platelet Vol. 10.1 fl (6.2-12.0); Monocyte# 0.69 X10^3/uL; Monocyte% 7.5 % (0-10); NRBC Flagged by Analyzer 0 % (0-5); Neutrophil # 5.93 X10^3/uL (2.7-7.7); Neutrophil % 64.2 % (47-70); Platelet Count 278 K/mm3 (150-450); RBC Distribution Width SD 39.3 fl (35.1-43.9); Red Blood Count 4.87 M/mm3 (4.2-5.4); White Blood Count 9.2 K/mm3 (4.4-11.0)
[2021-02-01 18:02] LABS: ALB/GLOB Ratio 1.1 RATIO (0.9-2.4); AST(SGOT) 22 U/L (15-37); Alanine Aminotransfer ALT/SGPT 35 U/L (13-56); Albumin, Serum 4.1 g/dL (3.2-5.0); Alkaline Phosphatase 111 U/L (45-117); Anion Gap 7 (5-15); BUN 12 mg/dL (7-18); BUN/Creat Ratio 14.4 RATIO (10-20); Calcium,Total 9.4 mg/dL (8.5-10.1); Chloride 105 mmol/L (98-107); Creatinine, Serum 0.83 mg/dL (0.55-1.02); EST Glomerular Filtration Rate 89 mL/min (>60); Est Glom Filt Rate - Afr Amer 107 mL/min (>60); Globulin 3.6 g/dL (2.2-4.2); Glucose 109 mg/dL (74-106); Potassium 4.1 mmol/L (3.5-5.1); Protein, Total 7.7 g/dL (6.4-8.2); Sodium Level 139 mmol/L (136-145); Thyroid Stim Hormone (TSH) 2.63 uIU/mL (0.358-3.74)
[2021-02-01 18:06] LABS: Erythrocyte Sedimentation Rate 4 mm/hr (0-30)
[2021-02-03 16:25] LABS: ANTINUCLEAR ANTIBODIES DIRECT Negative (Negative)
[2021-02-03 20:08] LABS: Endomysial Antibody IgA Negative (Negative); Immunoglobulin A 64 mg/dL (87-352)
[2021-02-03 20:20] LABS: t-Transglutaminase IgA <2 U/mL (0-3)
== END ==
PROVIDERS: PCP Family Medicine; Visit Provider Family Medicine
DX: R19.7 Diarrhea, unspecified (principal)
CPT/HCPCS: 36415; 80053; 82784; 83516; 84443; 85025; 85652; 86038; 86255

== ENCOUNTER → 2021-03-05 17:44 | Outpatient (CLI) | payer MEDICAID, SELFPAY ==
--- NOTE | 2021-03-05 17:44 | MRI_ITS ---
STUDY: MRI BRAIN WITHOUT CONTRAST REASON FOR EXAM: Female, 25 years old. headaches x 1 year, L eye pressure TECHNIQUE: Standardized multiplanar fat and water weighted pulse sequences were obtained. COMPARISON: None. FINDINGS: Normal size of the ventricles and extra-axial spaces for the patient''s age. Normal white matter tracts of the supratentorial brain. There is no evidence for recent intracranial ischemia or other cause of cytotoxic edema on diffusion weighted imaging (DWI). Normal T2* images of the brain without demonstrated susceptibility artifact. There is no demonstrated hemosiderin stain. Normal bilateral basal ganglia. Normal thalami. There is no extra-axial fluid accumulation. Normal flow voids within the major intracranial circulation suggesting patency by spin echo criteria. Normal sella turcica, pituitary gland, infundibular stalk, optic chiasm and hypothalamus. Normal tectal plate and pineal gland. Normal midbrain, al and medulla. Normal cerebellum. Normal basal cisterns. Normal bilateral temporal bones. Normal bilateral internal auditory canals. No demonstrated orbital abnormality, within the constraints of a routine brain study. Normal visualized paranasal sinuses. Normal calvarium and skull base. Normal visualized soft tissue structures. Normal visualized upper cervical spine. MRI/Brain without Contrast IMPRESSION: Normal unenhanced MRI of the brain. Electronically Signed: Yrn Montemayor MD at 6:54 EDT Tel , Service support ,
== END ==
PROVIDERS: PCP Family Medicine; Referring Provider Family Medicine; Visit Provider Family Medicine
DX: R51.9 Headache, unspecified (principal)
CPT/HCPCS: 70551

== ENCOUNTER 2021-08-08 12:01 | Emergency (ER) | payer MEDICAID, SELFPAY ==
[2021-08-08 12:01] VITALS: BP 151/93; PULSE 85; RESP 16; TEMP 36.1; O2SAT 99; BMI 39.4
--- NOTE | 2021-08-08 12:15 | EX.ED.VIS.HA ---
HPI History of Present Illness Chief Complaint: Headache Informant: patient and parent Narrative Narrative: 25-year-old female presents the emergency department with headache. Patient states that she gets basically daily headaches. She will around the time of her menstrual cycle developed severe migraines. She states that she used to get visual disturbances but does not get any more. She notes that its left periorbital and feels stabbing. She notes nausea and vomiting. She recently visited with her primary care provider and was prescribed sumatriptan. She states that last month she took it and it did help she took it today and it did not help. She tried some ibuprofen today as well. She states her headache seems to be getting worse. No arm leg or speech symptoms. No fevers. PFSH [facility] Medical History Migraine Home Medications vit no.[id number] [ Vitamins] 1 ea PO DAILY 06/20/17 [History Last Taken Unknown] omeprazole 20 mg PO DAILY #30 cap 02/11/20 [Rx Last Taken Unknown] NK 01/06/21 [History Last Taken Unknown] Allergy/AdvReac Type Severity Reaction Status Date / Time No Known Allergies Allergy Verified 08/08/21 12:03 Social History (Updated 08/08/21 @ 12:[address] Nolan Solorzano, ) Smoking Status: Never smoker substance use type: does not use ROS ROS ED Constitutional Constitutional ED: Denies chills, fever(s), sweats or weight loss Eyes Eyes: Denies change in vision or diplopia ENT ENT ED: Denies ear pain, rhinorrhea or sore throat Cardiovascular Cardiovascular: Denies chest pain, orthopnea, palpitations or racing heartbeat Respiratory/Chest Respiratory/Chest: Denies cough, dyspnea or orthopnea Gastrointestinal Gastrointestinal: Reports nausea and vomiting; Denies abdominal pain or diarrhea Genitourinary Genitourinary ED: Denies dysuria, hematuria or urinary frequency Musculoskeletal Musculoskeletal: Denies arthralgias or myalgias Integumentary Denies abscess or rash Neurologic Neurologic: Reports headache(s) and other Details: No speech or vision changes ; Denies paresthesias or weakness Psychiatric Psychiatric: Denies anxiety, depression, suicidal ideation or suicidal thoughts Endocrine Endocrinology: Denies polydipsia, polyphagia or polyuria Allergic/Immunologic Allergic/Immunologic ED: Denies mouth swelling, tongue swelling or urticaria EXAM Physical Exam Const Vital Signs: 08/08/21 12:01 08/08/21 12:58 Temperature 97 F L Temperature Source Temporal Pulse Rate 85 Respiratory Rate 16 14 Blood Pressure 151/93 H 132/75 H Blood Pressure Mean 112 94 Pulse Ox 99 97 Oxygen Delivery Method Room Air Room Air Positive well nourished, well developed and obese General Appearance ED: well developed Nutritional Appearance: obese HEENT Reports normocephalic, head/scalp atraumatic, TM's clear and moist mucous membranes atraumatic; Negative for temporal artery tenderness Tympanic Membrane ED: Yes TM's clear Eyes PERRL and EOMs intact bilaterally Neck no lymphadenopathy, supple and no JVD Resp normal respiratory effort and clear to auscultation bilaterally Cardio regular rate, regular rhythm and no murmurs GI normal to inspection, nondistended, normoactive bowel sounds and non-tender Palpation: soft Back/Spine no CVA tenderness and normal ROM Extremity normal to inspection General Extremety ED: Negative for edema General Extremity: Negative for edema Neuro oriented x3 and CN's II-XII intact bilaterally Sensorium / Orientation: alert Motor Exam: strength 5/5 throughout Psych mental status grossly normal Mood & Affect: Negative for depressed or tearful Skin no rashes or lesions noted and no wounds MDM MDM MDM Narrative Medical decision making narrative: Patient received IV fluids, Toradol, Compazine, and Benadryl. Patient developed some akathisia which resolved. The patient's headache is significantly improved. Patient will be discharged home return if worsening or concerns Discharge Plan Triage Chief Complaint: Headache ED Provider: Nolan Solorzano Dx/Rx/DC Orders Clinical Impression: Headache, migraine Instructions: ED, Migraine (Classical) Prescriptions: No Action vit no.[id number] [ Vitamin] 1 EACH tablet 1 ea PO DAILY RF: 0 omeprazole 20 MG capsule 20 mg PO DAILY Qty: 30 RF: 0 NK RF: 0 Primary Care Provider: Homero Rivera Referrals: Homero Rivera MD [Primary Care Provider] - 1-2 Weeks Disposition Disposition: Home, Self Care
[2021-08-08] MEDS: Ketorolac 30 MG/ML Syringe IV (12:28)
[2021-08-08] MEDS: 0.9% Normal Saline 1,000 ML 999 ML IV (12:28)
[2021-08-08] MEDS: DiphenhydrAMINE 50 MG/ML Syringe IV (12:28)
[2021-08-08] MEDS: proCHLORPERazine 10 MG/2 ML Vial IV (12:28)
--- NOTE | 2021-08-08 12:56 | ED.RN ---
Pt. was having dyskinesia after medicated. Dr. Solorzano updated and ordered another dose of benadryl. Upon entering room, pt. seemed to be calm and declined benadryl at this time.
[2021-08-08 12:58] VITALS: BP 132/75; RESP 14; O2SAT 97
[2021-08-08 13:17] VITALS: BP 116/72; PULSE 71; RESP 14; O2SAT 98
== END 2021-08-08 13:39 | disposition home or self-care (01) ==
LOC: ED 12:51
PROVIDERS: Emergency Provider Emergency Medicine; PCP Family Medicine
DX: G43.909 Migraine, unspecified, not intractable, without status migrainosus (principal); E66.9 Obesity, unspecified
CPT/HCPCS: 96374; 96375; 99283; J7030; A4216

== ENCOUNTER → 2021-08-30 16:58 | Outpatient (CLI) | payer MEDICAID, SELFPAY ==
[2021-08-30 18:33] LABS: Vitamin D,25 Hydroxy 21.6 ng/mL
== END ==
PROVIDERS: Nurse Practitioner Family; PCP Family Medicine; Visit Provider Family Medicine
DX: R53.83 Other fatigue (principal)
CPT/HCPCS: 36415; 82306

== ENCOUNTER 2021-12-04 20:47 | Emergency (ER) | payer MEDICAID, SELFPAY ==
[2021-12-04 20:48] VITALS: BP 145/109; PULSE 85; RESP 18; TEMP 35.9; O2SAT 100; BMI 38.2
--- NOTE | 2021-12-04 21:22 | EDS_ITS ---
HPI <CHICA RAMIREZ - Last Filed: 12/04/21 22:38> History of Present Illness Chief Complaint: General Illness Informant: patient Onset/Context/Timing Onset: Days (4) Timing: Continuous Narrative Narrative: Patient presents secondary to headache for the past 5 days. Patient also complains of nausea and vomiting with multiple emesis today, the last being just prior to arrival. Patient also reports congestion and nonproductive cough. Patient had Covid test on December 02 at urgent care. This was negative. Patient denies fever and chills. Patient states she took an Excedrin migraine this evening but vomited shortly thereafter. Patient reports history of migraines but states usually do not last this long. PFSH <CHICA RAMIREZ - Last Filed: 12/04/21 22:38> [facility] Medical History GERD (gastroesophageal reflux disease) Migraine Home Medications vit no.[id number] [ Vitamins] 1 ea PO DAILY 06/20/17 [History Last Taken Unknown] omeprazole 20 mg PO DAILY #30 cap 02/11/20 [Rx Last Taken Unknown] guaifenesin [Mucinex] 1,200 mg PO BID PRN #14 tab 12/04/21 [Rx Last Taken Unknown] Allergy/AdvReac Type Severity Reaction Status Date / Time No Known Allergies Allergy Verified 12/04/21 20:51 Social History Smoking Status: Never smoker substance use type: does not use ROS <CHICA RAMIREZ - Last Filed: 12/04/21 22:38> ROS ED Constitutional Constitutional ED: Denies chills or fever(s) Eyes Eyes: Denies blurry vision, change in vision or diplopia ENT ENT ED: Denies ear pain, rhinorrhea or sore throat Cardiovascular Cardiovascular: Denies chest pain Respiratory/Chest Respiratory/Chest: Denies dyspnea Gastrointestinal Gastrointestinal: Reports nausea, vomiting and other Details: Patient reports diarrhea but states this is baseline. ; Denies abdominal pain Genitourinary Genitourinary ED: Denies dysuria Musculoskeletal Musculoskeletal: Denies myalgias or neck pain Integumentary Denies rash Neurologic Neurologic: Reports other Details: Headache to left temporal area. ; Denies paresthesias or weakness Psychiatric Psychiatric: Denies anxiety or depression EXAM <CHICA LANTIGUAARINA - Last Filed: 12/04/21 22:38> Physical Exam Const Vital Signs: 12/04/21 20:48 Temperature 96.7 F L Temperature Source Temporal Pulse Rate 85 Respiratory Rate 18 Blood Pressure 145/109 H Blood Pressure Mean 121 Pulse Ox 100 Oxygen Delivery Method Room Air Positive well nourished and well developed General Appearance ED: well developed HEENT Reports TM's clear and moist mucous membranes Negative for tenderness Tympanic Membrane ED: Yes TM's clear Eyes PERRL and EOMs intact bilaterally Neck no lymphadenopathy, supple and no meningeal signs Resp normal respiratory effort and clear to auscultation bilaterally Cardio regular rate, regular rhythm and no murmurs GI normal to inspection, nondistended, normoactive bowel sounds and non-tender Palpation: soft Back/Spine Cervical Spine: Negative for cervical spine tenderness Extremity normal to inspection General Extremety ED: Negative for edema General Extremity: Negative for edema Neuro oriented x3 and CN's II-XII intact bilaterally Sensorium / Orientation: alert Motor Exam: strength 5/5 throughout Psych mental status grossly normal Skin no rashes or lesions noted <Dr. Vane Palma MD - Last Filed: 12/04/21 22:41> Physical Exam Const Vital Signs: 12/04/21 20:48 Temperature 96.7 F L Temperature Source Temporal Pulse Rate 85 Respiratory Rate 18 Blood Pressure 145/109 H Blood Pressure Mean 121 Pulse Ox 100 Oxygen Delivery Method Room Air [facility] <CHICA JAMES - Last Filed: 12/04/21 22:38> [facility] Narrative Medical decision making narrative: Patient states she does not tolerate Reglan or Compazine well. Patient will be treated with 1 L normal saline and Toradol. Treatment and Re-Evaluation Comments:: Reevaluation, patient feeling improved. Patient will be discharged with prescription for Mucinex, per request to relieve chest congestion. Patient aware to follow-up with primary care doctor. Return instructions given. <Dr. Vane Palma MD - Last Filed: 12/04/21 22:41> [facility] Treatment and Re-Evaluation Comments:: Patient seen and evaluated with [employer] student. Patient presents with 5- day history of headache and URI-like symptoms. She did have a recent negative Covid test. Patient lying in bed no acute distress. Nontoxic appearing. Head neck examination unremarkable. No meningismus. Heart is regular rate and rhythm. Lung sounds are clear. Abdomen is soft and nontender. Neuro exam unremarkable. Patient given IV Toradol. On repeat evaluation she does report her headache is improved and wishes to go home. She will be given a prescription for Mucinex to help with her chest congestion and cough. Patient will continue supportive care. Discharge Plan Triage Chief Complaint: General Illness ED Provider: Vane Palma Dx/Rx/DC Orders Clinical Impression: Migraine, Viral URI Instructions: ED, Migraine (Classical), ED URI, Viral, No Abx (Adult) Prescriptions: New Mucinex 1,200 mg tablet extended release 12hr 1,200 mg PO BID PRN (Reason: congestion) Qty: 14 RF: 0 No Action vit no.[id number] [ Vitamin] 1 EACH tablet 1 ea PO DAILY RF: 0 omeprazole 20 MG capsule 20 mg PO DAILY Qty: 30 RF: 0 Primary Care Provider: Homero Rivera Referrals: Homero Rivera MD [Primary Care Provider] - 1 Week if not improving Disposition Disposition: Home, Self Care Discharge Date/Time: 12/04/21 22:37
[2021-12-04] MEDS: Ketorolac 30 MG/ML Syringe IV (21:38)
[2021-12-04] MEDS: 0.9% Normal Saline 1,000 ML 1000 ML IV (21:38)
== END 2021-12-04 22:37 | disposition home or self-care (01) ==
PROVIDERS: Emergency Provider Emergency Medicine; PCP Family Medicine; Visit Provider Emergency Medicine
DX: G43.909 Migraine, unspecified, not intractable, without status migrainosus (principal); J06.9 Acute upper respiratory infection, unspecified
CPT/HCPCS: 96361; 96374; 99283; J7030

== ENCOUNTER 2022-02-23 17:04 | Emergency (ER) | payer MEDICAID, SELFPAY ==
[2022-02-23 17:05] VITALS: BP 143/113; PULSE 86; RESP 16; TEMP 36.7; O2SAT 99; BMI 38.2
--- NOTE | 2022-02-23 17:24 | EX.ED.VIS.HA ---
HPI History of Present Illness Chief Complaint: Headache Informant: patient Narrative Narrative: Patient is presenting with headache. She states she has a history of migraines. This is typical migraine. She gets them about once or twice a month in the winter but several times a week this time a year. They do tend to occur prior to her menstrual cycles and she is due for 1. She missed her last cycle but has taken multiple tests which are negative and she has no symptoms of . This headache is her typical left frontal headache. Its associated with nausea and vomiting. She used to take sumatriptan. However, it caused more nausea and vomiting for her so she does not take it anymore. This headache started this morning somewhere around 6 AM. It started after she woke up. It has been waxing and waning during the day. Its not her worst ever. It was not thunderclap. She has no trauma. No fevers or chills. PFSH [facility] Medical History GERD (gastroesophageal reflux disease) Migraine Home Medications vit no.[id number] [ Vitamins] 1 ea PO DAILY 06/20/17 [History Last Taken Unknown] omeprazole 20 mg PO DAILY #30 cap 02/11/20 [Rx Last Taken Unknown] guaifenesin [Mucinex] 1,200 mg PO BID PRN #14 tab 12/04/21 [Rx Last Taken Unknown] Allergy/AdvReac Type Severity Reaction Status Date / Time diphenhydramine AdvReac Other Verified 02/23/22 17:42 [From Benadryl] prochlorperazine AdvReac Other Verified 02/23/22 17:42 [From Compazine] Social History Smoking Status: Never smoker substance use type: does not use ROS ROS ED Constitutional Constitutional ED: Denies fever(s) Eyes Eyes: Reports other Details: Mild photophobia ; Denies blurry vision, change in vision or diplopia ENT ENT ED: Denies ear pain, rhinorrhea or sore throat Cardiovascular Cardiovascular: Denies chest pain Respiratory/Chest Respiratory/Chest: Denies cough or dyspnea Gastrointestinal Gastrointestinal: Denies nausea Genitourinary Genitourinary ED: Denies dysuria Musculoskeletal Musculoskeletal: Denies myalgias Integumentary Denies rash Neurologic Neurologic: Denies headache(s) Psychiatric Psychiatric: Denies anxiety or depression Endocrine Endocrinology: Denies polydipsia or polyuria Hematologic/Lymphatic Hematologic/Lymphatic: Denies easy bruising Allergic/Immunologic Allergic/Immunologic ED: Denies urticaria EXAM Physical Exam Const Vital Signs: 02/23/22 17:05 Temperature 98.0 F Temperature Source Temporal Pulse Rate 86 Respiratory Rate 16 Blood Pressure 143/113 H Blood Pressure Mean 123 Pulse Ox 99 Oxygen Delivery Method Room Air I walk into see the patient. She is in a fully lit room. She is nontoxic. Positive well nourished and well developed General Appearance ED: well developed and NAD; Negative for cyanotic or diaphoretic HEENT Reports normocephalic and moist mucous membranes HEENT Narrative: No sinus tenderness. No rashes. No temporal artery tenderness. atraumatic Eyes PERRL and EOMs intact bilaterally Eyes Narrative: Pupils are about 5 mm but equal and reactive. No pain with motion. No swelling. No injection. Neck no meningeal signs Resp normal respiratory effort and clear to auscultation bilaterally Cardio regular rate and regular rhythm GI non-tender and non-distended Palpation: soft Back/Spine no CVA tenderness Neuro oriented x3 Sensorium / Orientation: awake and alert Psych mental status grossly normal Skin Nails: normal MDM MDM MDM Narrative Medical decision making narrative: Initially were going to give Compazine and Benadryl. Patient then remembered that she had a intolerance of these. She has done well with Toradol and fluids. We gave these. On recheck she states the headache is not completely gone but almost. She is comfortable going home. She has a family member to drive her. She will follow-up with her physician. Discharge Plan Triage Chief Complaint: Headache ED Provider: Alex Nolan Dx/Rx/DC Orders Clinical Impression: Migraine headache Instructions: ED, Migraine (Classical) Prescriptions: No Action vit no.[id number] [ Vitamin] 1 EACH tablet 1 ea PO DAILY RF: 0 omeprazole 20 MG capsule 20 mg PO DAILY Qty: 30 RF: 0 Mucinex 1,200 mg tablet extended release 12hr 1,200 mg PO BID PRN (Reason: congestion) Qty: 14 RF: 0 Primary Care Provider: Homero Rivera Referrals: Homero Rivera MD [Primary Care Provider] - 3-5 Days Disposition Disposition: Home, Self Care
[2022-02-23] MEDS: Ketorolac 15 MG/ML Vial IV (17:38)
[2022-02-23] MEDS: 0.9% Normal Saline 1,000 ML 999 ML IV (17:38)
[2022-02-23] MEDS: Ondansetron 4 MG/2 ML Vial IV (17:51)
== END 2022-02-23 18:43 | disposition home or self-care (01) ==
PROVIDERS: Emergency Provider Emergency Medicine; PCP Family Medicine; Visit Provider Emergency Medicine
DX: G43.909 Migraine, unspecified, not intractable, without status migrainosus (principal)
CPT/HCPCS: 96361; 96374; 96375; 99282; J7030; A4216; J2405

== ENCOUNTER 2022-09-04 07:24 | Emergency (ER) | payer MEDICAID, SELFPAY ==
[2022-09-04 07:26] VITALS: BP 147/118; PULSE 92; RESP 18; TEMP 36; O2SAT 100; BMI 38.2
--- NOTE | 2022-09-04 07:43 | ED.VIS.BACK ---
HPI History of Present Illness Chief Complaint: Back Informant: patient Narrative Narrative: 26-year-old female presenting to the emergency department chief complaint of bilateral low back pain. Symptoms began abruptly this morning when she bent over to pick something up and went to stand up. She notes pain with any movement. She denies any pain down her legs. She denies any sensory or muscle weakness. No urinary retention or bowel incontinence. She has not had back pain before. [facility] Medical History GERD (gastroesophageal reflux disease) Migraine Home Medications omeprazole 20 mg capsule,delayed release 20 mg PO DAILY #30 caps 02/11/20 [Rx Last Taken Unknown] Allergy/AdvReac Type Severity Reaction Status Date / Time diphenhydramine AdvReac Other Verified 09/04/22 07:26 [From Benadryl] prochlorperazine AdvReac Other Verified 09/04/22 07:26 [From Compazine] Social History Smoking Status: Never smoker substance use type: does not use ROS ROS ED Constitutional Constitutional ED: Denies chills or weight loss Eyes Eyes: Denies change in vision or diplopia ENT ENT ED: Denies ear pain, rhinorrhea or sore throat Cardiovascular Cardiovascular: Denies chest pain, orthopnea, palpitations or racing heartbeat Respiratory/Chest Respiratory/Chest: Denies cough, dyspnea or orthopnea Gastrointestinal Gastrointestinal: Denies abdominal pain, diarrhea, nausea or vomiting Genitourinary Genitourinary ED: Denies dysuria, hematuria or urinary frequency Musculoskeletal Musculoskeletal: Reports back pain; Denies arthralgias, myalgias or neck pain Integumentary Denies abscess or rash Neurologic Neurologic: Denies headache(s) or weakness Psychiatric Psychiatric: Denies anxiety, depression, suicidal ideation or suicidal thoughts Endocrine Endocrinology: Denies polydipsia, polyphagia or polyuria Allergic/Immunologic Allergic/Immunologic ED: Denies mouth swelling, tongue swelling or urticaria EXAM Physical Exam Const Vital Signs: 09/04/22 07:26 Temperature 96.8 F L Temperature Source Temporal Pulse Rate 92 Respiratory Rate 18 Blood Pressure 147/118 H Blood Pressure Mean 127 Pulse Ox 100 Oxygen Delivery Method Room Air Positive well nourished, well developed and obese General Appearance ED: well developed Nutritional Appearance: obese HEENT Reports normocephalic, head/scalp atraumatic and moist mucous membranes Eyes PERRL and EOMs intact bilaterally Neck no lymphadenopathy, supple and no JVD Resp normal respiratory effort and clear to auscultation bilaterally Cardio regular rate, regular rhythm and no murmurs GI normal to inspection, nondistended, normoactive bowel sounds and non-tender Palpation: soft Back/Spine no CVA tenderness Back/Spine Narrative: Patient has painful range of motion. Tenderness to palpation in the lumbar paraspinal musculature. There are no tissue texture changes to suggest underlying infection Extremity normal to inspection General Extremety ED: Negative for edema General Extremity: Negative for edema Neuro oriented x3 and CN's II-XII intact bilaterally Sensorium / Orientation: alert Motor Exam: strength 5/5 throughout Deep Tendon Reflexes: Rt Patellar (L4): 2+, Lt Patellar (L4): 2+, Rt Ankle (S1): 2+ and Lt Ankle (S1): 2+ Deep Tendon Reflexes Back: Rt Patellar (L4): 2+, Lt Patellar (L4): 2+, Rt Ankle (S1): 2+ and Lt Ankle (S1): 2+ Psych mental status grossly normal Mood & Affect: Negative for depressed or tearful Skin no rashes or lesions noted and no wounds MDM MDM MDM Narrative Medical decision making narrative: The story sounds very biomechanical in nature to me. She has no radicular symptoms no evidence of cauda equina. We talked about imbalance of the abdominal core the low back as well as hamstring and quadricep tension. We talked about home treatment history includes stretching. I am going to write for anti-inflammatories Flexeril and some oxycodone. We talked about preventative care. Discharge Plan Triage Chief Complaint: Back ED Provider: Nolan Solorzano Dx/Rx/DC Orders Prescriptions: No Action omeprazole 20 MG capsule 20 mg PO DAILY Qty: 30 0RF Primary Care Provider: Homreo Rivera Referrals: Homero Rivera MD [Primary Care Provider] -
[2022-09-04] MEDS: Ibuprofen 400 MG Tablet 800 MG PO (08:01)
== END 2022-09-04 08:15 | disposition home or self-care (01) ==
PROVIDERS: Emergency Provider Emergency Medicine; PCP Family Medicine; Visit Provider Emergency Medicine
DX: M54.50 Low back pain, unspecified (principal); E66.9 Obesity, unspecified
CPT/HCPCS: 99283

== ENCOUNTER 2022-10-20 08:18 | Emergency (ER) | payer MEDICAID, SELFPAY ==
[2022-10-20 08:19] VITALS: BP 145/106; PULSE 82; RESP 16; TEMP 36.4; O2SAT 98; BMI 38.2
[2022-10-20] MEDS: 0.9% Normal Saline 1,000 ML 999 ML IV (08:55)
[2022-10-20] MEDS: Ketorolac 30 MG/ML Syringe IV (08:55)
--- NOTE | 2022-10-20 09:08 | EX.ED.VIS.HA ---
HPI History of Present Illness Chief Complaint: Headache Informant: patient Onset/Context/Timing Onset: Today Context: Sudden Timing: Continuous Quality -Headache: Positive for Similar Prior Headaches and Sharp Location: Left temporal Worsened by: Nothing Relieved by: Nothing Associated Symptoms/Injury Associated Symptoms: Positive for Nausea, Vomiting and Photophobia; Negative for Fever, Sore Throat, Sinus Pressure, Numbness, Tingling, Preceding Aura, Visual Changes, Blurred Vision or Visual Loss Narrative Narrative: Patient is with headache that began today. Patient states it began suddenly this morning. Patient states it feels similar to prior migraine headaches. Patient states it is over the left temporal area. Patient describes her pain as sharp. Patient states it has been constant since she woke up today. Patient states nothing makes it better nothing makes it worse. Patient admits to some nausea and vomiting with it. Patient also admits to some photophobia. Patient denies any paresthesias or weakness. Patient denies any visual changes or scotoma. Patient denies any loss of vision. Patient states her pain does radiate into the left side of her neck. [facility] Medical History GERD (gastroesophageal reflux disease) Migraine Home Medications omeprazole 20 mg capsule,delayed release 20 mg PO DAILY #30 caps 02/11/20 [Rx Last Taken Unknown] cyclobenzaprine 10 mg tablet 10 mg PO TID PRN Muscle Spasm #15 TABLETS 09/04/22 [Rx Last Taken Unknown] naproxen 500 mg tablet 500 mg PO BID #14 tabs 09/04/22 [Rx Last Taken Unknown] oxycodone 10 mg tablet 10 mg PO TID PRN pain 3 days #9 tabs 09/04/22 [Rx Last Taken Unknown] Allergy/AdvReac Type Severity Reaction Status Date / Time diphenhydramine AdvReac Other Verified 10/20/22 08:21 [From Benadryl] prochlorperazine AdvReac Other Verified 10/20/22 08:21 [From Compazine] Surgical History History of tonsillectomy Social History Smoking Status: Never smoker substance use type: does not use ROS ROS ED Constitutional Constitutional ED: Denies chills or fever(s) Eyes Eyes: Denies blurry vision or change in vision ENT ENT ED: Denies rhinorrhea or sore throat Cardiovascular Cardiovascular: Denies chest pain or palpitations Respiratory/Chest Respiratory/Chest: Denies cough or dyspnea Gastrointestinal Gastrointestinal: Reports nausea and vomiting Genitourinary Genitourinary ED: Denies dysuria or hematuria Musculoskeletal Musculoskeletal: Reports neck pain; Denies back pain Integumentary Denies abscess or rash Neurologic Neurologic: Reports headache(s); Denies weakness Allergic/Immunologic Allergic/Immunologic ED: Denies mouth swelling or urticaria EXAM Physical Exam Const Vital Signs: 10/20/22 08:19 Temperature 97.6 F L Temperature Source Temporal Pulse Rate 82 Respiratory Rate 16 Blood Pressure 145/106 H Blood Pressure Mean 119 Pulse Ox 98 Oxygen Delivery Method Room Air Positive well nourished, well developed and obese General Appearance ED: well developed and NAD Nutritional Appearance: obese HEENT Reports moist mucous membranes Neck supple, no meningeal signs and no JVD Neck Narrative: There is mild tenderness over the left cervical paraspinal area. There is no midline tenderness. There is no bony crepitance or step-off. There is good range of motion. Resp normal respiratory effort and clear to auscultation bilaterally Cardio regular rate, regular rhythm and no murmurs GI normal to inspection, nondistended, normoactive bowel sounds and non-tender Palpation: soft Extremity normal to inspection General Extremety ED: Negative for edema or tenderness General Extremity: Negative for edema Neuro oriented x3, CN's II-XII intact bilaterally and no sensory deficits noted Sensorium / Orientation: alert Motor Exam: strength 5/5 throughout Psych mental status grossly normal Skin no rashes or lesions noted MDM MDM MDM Narrative Medical decision making narrative: Prior records were reviewed. Patient has done well with IV fluids and Toradol in the past. Patient states she has intolerance to the headache cocktail. Patient was given IV fluids and Toradol here. I do not feel any imaging is necessary at this time since this is similar to prior headaches. Treatment and Re-Evaluation Narrative: On reevaluation at 0940, patient states her headache is much improved. Patient wants to go home. Patient was given a note for work for today. Patient was instructed rest in a dark quiet room. Patient was instructed to follow-up with her primary care physician in 5 to 7 days. Patient understood and was agreeable with the plan. All questions were answered. Discharge Plan Triage Chief Complaint: Headache ED Provider: Homero Keane Dx/Rx/DC Orders Clinical Impression: Headache, migraine, Obesity (BMI 35.0-39.9 without comorbidity) Instructions: ED, Migraine (Classical) Prescriptions: No Action omeprazole 20 MG capsule 20 mg PO DAILY Qty: 30 0RF cyclobenzaprine [cyclobenzaprine] 10 mg tablet 10 mg PO TID PRN (Reason: Muscle Spasm) Qty: 15 0RF naproxen 500 mg tablet 500 mg PO BID Qty: 14 0RF oxycodone 10 mg tablet 10 mg PO TID PRN (Reason: pain) 3 Days Qty: 9 0RF Stand Alone Forms: ED Work / School Excuse Primary Care Provider: Homero Rivera Referrals: Homero Rivera MD [Primary Care Provider] - 5-7 Days Disposition Disposition: Home, Self Care
[2022-10-20 10:13] VITALS: BP 129/87; PULSE 72; RESP 16; O2SAT 99
== END 2022-10-20 10:14 | disposition home or self-care (01) ==
PROVIDERS: Emergency Provider Emergency Medicine; PCP Family Medicine; Visit Provider Emergency Medicine
DX: G43.909 Migraine, unspecified, not intractable, without status migrainosus (principal); E66.9 Obesity, unspecified
CPT/HCPCS: 96374; 99283; J7030; A4216

== ENCOUNTER → 2023-02-10 | Outpatient (CLI) | payer MEDICAID, SELFPAY ==
[2023-02-15 11:09] LABS: H. PYLORI STOOL AG Negative (Negative)
== END | disposition home or self-care (01) ==
PROVIDERS: PCP Family Medicine; Visit Provider Family Medicine
DX: K21.9 Gastro-esophageal reflux disease without esophagitis (principal)
CPT/HCPCS: 87338

== ENCOUNTER 2023-05-17 09:06 | Emergency (ER) | payer MEDICAID, SELFPAY ==
[2023-05-17 09:07] VITALS: BP 138/95; PULSE 79; RESP 14; TEMP 36.6; O2SAT 97; BMI 35.2
--- NOTE | 2023-05-17 09:19 | EX.ED.VIS.HA ---
HPI History of Present Illness Chief Complaint: Headache Narrative Narrative: 27-year-old female with history of migraines presenting with migraine headache. She states that started this morning and she took some Nurtec for headache which she would typically do. Normally she would repeat a dose but she ran out. Patient does have light sound sensitivities as well as nausea which is typical of her migraines. No fevers or chills. No visual complaints. She is been ambulatory with steady gait. No paresthesias. PFSH PFSH Medical History GERD (gastroesophageal reflux disease) Migraine Home Medications omeprazole 20 mg capsule,delayed release 20 mg PO DAILY #30 caps 02/11/20 [Rx Last Taken Unknown] cyclobenzaprine 10 mg tablet 10 mg PO TID PRN Muscle Spasm #15 TABLETS 09/04/22 [Rx Last Taken Unknown] naproxen 500 mg tablet 500 mg PO BID #14 tabs 09/04/22 [Rx Last Taken Unknown] oxycodone 10 mg tablet 10 mg PO TID PRN pain 3 days #9 tabs 09/04/22 [Rx Last Taken Unknown] ondansetron 4 mg disintegrating tablet 4 mg PO Q8H PRN PRN Nausea #14 tabs 05/17/23 [Rx Last Taken Unknown] Allergy/AdvReac Type Severity Reaction Status Date / Time diphenhydramine AdvReac Other Verified 05/17/23 09:06 [From Benadryl] prochlorperazine AdvReac Other Verified 05/17/23 09:06 [From Compazine] Surgical History History of tonsillectomy Social History Smoking Status: Never smoker substance use type: does not use ROS ROS ED Constitutional Constitutional ED: Denies chills, fever(s) or sweats Eyes Eyes: Denies blurry vision or change in vision ENT ENT ED: Denies ear pain or sore throat Cardiovascular Cardiovascular: Denies chest pain, palpitations or racing heartbeat Respiratory/Chest Respiratory/Chest: Denies cough, dyspnea or sputum Gastrointestinal Gastrointestinal: Denies abdominal pain, constipation, diarrhea, nausea or vomiting Genitourinary Genitourinary ED: Denies dysuria, hematuria or urinary frequency Musculoskeletal Musculoskeletal: Denies arthralgias, myalgias or neck pain Integumentary Denies abscess, Abrasions or rash Neurologic Neurologic: Reports headache(s); Denies paresthesias or weakness Psychiatric Psychiatric: Denies anxiety, depression, suicidal ideation or suicidal thoughts Endocrine Endocrinology: Denies polydipsia or polyuria EXAM Physical Exam Const Vital Signs: 05/17/23 09:07 Temperature 98 F Temperature Source Temporal Pulse Rate 79 Respiratory Rate 14 Blood Pressure 138/95 H Blood Pressure Mean 109 Pulse Ox 97 Oxygen Delivery Method Room Air Positive well nourished General Appearance ED: NAD; Negative for pallor HEENT Reports normocephalic atraumatic Eyes PERRL and EOMs intact bilaterally Neck no lymphadenopathy and supple Resp normal respiratory effort Effort and Inspection: Negative for retractions Cardio regular rate and regular rhythm Neuro oriented x3 and CN's II-XII intact bilaterally Neuro Narrative: No focal neurologic deficits or lateralizing signs or symptoms. Motor Exam: strength 5/5 throughout Psych mental status grossly normal Skin General Skin Exam: elasticity normal; Negative for jaundice or pallor MDM MDM MDM Narrative Medical decision making narrative: Patient presenting with headache. This is typical of her migraine headache. I reviewed the medical records he she had an MRI in the past which was negative. I do not believe she is a CT based on exam. He is having typical light sensitivity sound sensitivity, nausea. Patient states he is had a bad reaction to Compazine and Benadryl combination. She does not want to try Reglan. She states typically Toradol IV fluids help. She also requested Zofran for nausea. Reevaluation at 10:07 AM the patient is feeling better and wants to be discharged home. She will be given a prescription for Zofran. She given a work note for today. Return precautions discussed. Impression: 1. Headache 2. Nausea Discharge Plan Triage Chief Complaint: Headache ED Provider: Elia Erazo Dx/Rx/DC Orders Instructions: ED Headache Unspecified Prescriptions: New ondansetron 4 mg tablet,disintegrating 4 mg PO Q8H PRN PRN (Reason: Nausea) Qty: 14 0RF No Action omeprazole 20 MG capsule 20 mg PO DAILY Qty: 30 0RF cyclobenzaprine [cyclobenzaprine] 10 mg tablet 10 mg PO TID PRN (Reason: Muscle Spasm) Qty: 15 0RF naproxen 500 mg tablet 500 mg PO BID Qty: 14 0RF oxycodone 10 mg tablet 10 mg PO TID PRN (Reason: pain) 3 Days Qty: 9 0RF Stand Alone Forms: ED Work / School Excuse Primary Care Provider: Homero Rivera Referrals: Homero Rivera MD [Primary Care Provider] - Disposition Disposition: Home, Self Care
[2023-05-17] MEDS: Ketorolac 15 MG/ML Vial IV (09:30)
[2023-05-17] MEDS: Ondansetron 4 MG/2 ML Vial IV (09:30)
== END 2023-05-17 10:19 | disposition home or self-care (01) ==
PROVIDERS: Emergency Provider Student in an Organized Health Care Education/Training Program; PCP Family Medicine; Visit Provider Student in an Organized Health Care Education/Training Program
DX: R51.9 Headache, unspecified (principal); R11.0 Nausea
CPT/HCPCS: 96374; 96375; 99283; A4216; J2405

== ENCOUNTER 2023-12-19 08:31 | Emergency (ER) | payer MEDICAID, SELFPAY ==
[2023-12-19 08:32] VITALS: BP 154/98; PULSE 66; PULSE 69; RESP 15; TEMP 36.2; O2SAT 100; O2SAT 99; BMI 34.4
--- NOTE | 2023-12-19 08:42 | EDS_ITS ---
HPI History of Present Illness Chief Complaint: Headache Detail of Chief Complaint: Headache Informant: patient Narrative Narrative: Patient presents to the emergency department with complaint of a headache that started around 2 AM while she was at work today. Patient states that she gets frequent headaches typically affected by her menstrual period and change in weather. She had been on Nurtec but feels like it is not helping like before. She did take Nurtec and some ibuprofen but continues to complain headache mostly left-sided. She describes sharp pain. She had some nausea and some mild photophobia. Headache is typical of her migraines. She denies recent illness. She denies falls or head injuries. No family history of brain tumors or aneurysms. [facility] Medical History GERD (gastroesophageal reflux disease) Migraine Home Medications omeprazole 20 mg capsule,delayed release 20 mg PO DAILY #30 caps 02/11/20 [Rx Last Taken Unknown] cyclobenzaprine 10 mg tablet 10 mg PO TID PRN Muscle Spasm #15 TABLETS 09/04/22 [Rx Last Taken Unknown] naproxen 500 mg tablet 500 mg PO BID #14 tabs 09/04/22 [Rx Last Taken Unknown] oxycodone 10 mg tablet 10 mg PO TID PRN pain 3 days #9 tabs 09/04/22 [Rx Last Taken Unknown] ondansetron 4 mg disintegrating tablet 4 mg PO Q8H PRN PRN Nausea #14 tabs 05/17/23 [Rx Last Taken Unknown] Allergy/AdvReac Type Severity Reaction Status Date / Time diphenhydramine AdvReac Other Verified 12/19/23 08:34 [From Benadryl] prochlorperazine AdvReac Other Verified 12/19/23 08:34 [From Compazine] Surgical History History of tonsillectomy Social History Smoking Status: Never smoker substance use type: does not use ROS ROS ED Review of Systems ROS Unobtainable: other Constitutional Constitutional ED: Reports lethargy; Denies chills, fever(s), sweats or weight loss Eyes Eyes: Denies blurry vision, change in vision or diplopia ENT ENT ED: Denies rhinorrhea or sore throat Cardiovascular Cardiovascular: Denies chest pain, orthopnea or racing heartbeat Respiratory/Chest Respiratory/Chest: Denies cough, dyspnea, dyspnea on exertion, orthopnea or sputum Gastrointestinal Gastrointestinal: Denies abdominal pain, diarrhea, nausea or vomiting Genitourinary Genitourinary ED: Denies dysuria, hematuria or urinary frequency Musculoskeletal Musculoskeletal: Denies arthralgias, back pain, myalgias or neck pain Integumentary Denies abscess, Abrasions or rash Neurologic Neurologic: Reports headache(s); Denies weakness Psychiatric Psychiatric: Denies anxiety, depression or suicidal thoughts Endocrine Endocrinology: Denies polydipsia, polyphagia or polyuria Hematologic/Lymphatic Hematologic/Lymphatic: Denies easy bleeding, easy bruising or lymphadenopathy Allergic/Immunologic Allergic/Immunologic ED: Denies mouth swelling, tongue swelling or urticaria EXAM Physical Exam Const Vital Signs: 12/19/23 08:32 12/19/23 08:32 Temperature 97.2 F L 97.2 F L Temperature Source Temporal Temporal Pulse Rate 69 66 Respiratory Rate 15 15 Blood Pressure 154/98 H 154/98 H Blood Pressure Mean 116 116 Pulse Ox 100 99 Oxygen Delivery Method Room Air Room Air Positive well nourished and well developed General Appearance ED: well developed and NAD HEENT Reports TM's clear and moist mucous membranes normocephalic and atraumatic; Negative for trauma or tenderness Tympanic Membrane ED: Yes TM's clear Eyes PERRL and EOMs intact bilaterally General Eye ED: Negative for pale conjunctiva or scleral icterus Neck no lymphadenopathy, supple and no JVD General: Negative for tenderness Chest Wall inspection of chest normal and palpation of chest normal Chest: Negative for tenderness Resp normal respiratory effort and clear to auscultation bilaterally Effort and Inspection: Negative for respiratory distress or pain with movement Auscultation: Negative for rhonchi, wheezes or diminished lung sounds Cardio regular rate, regular rhythm, S1 normal heart sound, S2 normal heart sound and no murmurs Peripheral Pulses: pulses 2+ throughout GI normal to inspection, nondistended, normoactive bowel sounds, soft to palpation, non-tender, non-distended and no masses Back/Spine no CVA tenderness and no thoracic nor lumbar tenderness Extremity normal to inspection General Extremety ED: Negative for edema General Extremity: Negative for edema Neuro oriented x3, CN's II-XII intact bilaterally, no sensory deficits noted and gait normal Neuro Narrative: Finger-nose and heel bingham testing within normal limits, negative Romberg, negative pronator, fundi benign. Negative Romberg, negative pronator drift. Sensorium / Orientation: awake, alert, oriented to person, oriented to place and oriented to time Motor Exam: strength 5/5 throughout and strength abnormal Psych mental status grossly normal Skin no rashes or lesions noted and no wounds MDM MDM MDM Narrative Medical decision making narrative: Patient presents with a headache that is typical of her migraines. IV line established. She was given a liter mostly fluid bolus as well as Toradol and Zofran. Headache down to a 3 out of 10 from a 7 out of 10. She does not want a thing more for her headache. She like to go home and sleep as she has been up all night working. She given referral to neurology at her request and she is also advised to follow-up with her primary care physician as needed. Vies to return if worsening headache, difficulty with balance or speech, or condition worsen anyway. Discharge Plan Triage Chief Complaint: Headache ED Provider: Casey Guevara Dx/Rx/DC Orders Clinical Impression: Migraine Instructions: ED, Migraine (Classical) Prescriptions: No Action omeprazole 20 MG capsule 20 mg PO DAILY Qty: 30 0RF cyclobenzaprine [cyclobenzaprine] 10 mg tablet 10 mg PO TID PRN (Reason: Muscle Spasm) Qty: 15 0RF naproxen 500 mg tablet 500 mg PO BID Qty: 14 0RF oxycodone 10 mg tablet 10 mg PO TID PRN (Reason: pain) 3 Days Qty: 9 0RF ondansetron 4 mg tablet,disintegrating 4 mg PO Q8H PRN PRN (Reason: Nausea) Qty: 14 0RF Primary Care Provider: Homero Rivera Referrals: Homero Rivera MD [Primary Care Provider] - 3-5 Days Anup Fleming MD [Non-Staff -Ordering Privileges] - 3-5 Days Disposition Disposition: Home, Self Care
[2023-12-19] MEDS: 0.9% Normal Saline (1000mL) 1,000 ML 1000 ML IV (08:57)
[2023-12-19] MEDS: Ondansetron 4 MG/2 ML Vial IV (08:58)
[2023-12-19] MEDS: Ketorolac 30 MG/ML Syringe IV (08:58)
[2023-12-19 09:48] VITALS: BP 126/68; PULSE 61; RESP 16; TEMP 36.2; O2SAT 98
== END 2023-12-19 09:50 | disposition home or self-care (01) ==
PROVIDERS: Emergency Provider Emergency Medicine; PCP Family Medicine; Visit Provider Emergency Medicine
DX: G43.909 Migraine, unspecified, not intractable, without status migrainosus (principal)
CPT/HCPCS: 96361; 96374; 96375; 99283; J7030; A4216; J2405

== ENCOUNTER 2024-01-20 08:29 | Outpatient (CLI) | payer MEDICAID, SELFPAY ==
[2024-01-20 09:19] LABS: Absolute Lymphocyte Count 2.17 X10^3/uL (0.83-4.51); Absolute Neutrophil Count 2.6 X10^3/uL (2.0-7.7); Basophil# 0.04 X10^3/uL; Basophil% 0.7 % (0-1); Eosinophil# 0.13 X10^3/uL; Eosinophils% 2.4 % (0-5); Hemoglobin 13.1 g/dL (12.0-15.0); Lymphocyte # 2.17 X10^3/ul (0.83-4.51); Mean Corp Hgb Conc 32.8 g/dL (32-36); Mean Corpuscular Hgb 28.5 pg (27.0-32.0); Mean Corpuscular Volume 87.1 fL (81-99); Mean Platelet Vol. 9.5 fl (6.2-12.0); Monocyte# 0.47 X10^3/uL; Monocyte% 8.7 % (0-10); NRBC Flagged by Analyzer 0 % (0-5); Neutrophil % 47.8 % (47-70); Platelet Count 252 K/mm3 (150-450); RBC Distribution Width CV 12.3 % (11.6-14.6); RBC Distribution Width SD 39.3 fl (35.1-43.9); Red Blood Count 4.59 M/mm3 (4.2-5.4); White Blood Count 5.4 K/mm3 (4.4-11.0)
[2024-01-20 09:43] LABS: Hemoglobin A1c 5.1 % (3.8-5.6)
[2024-01-20 09:57] LABS: ALB/GLOB Ratio 1.1 RATIO (0.9-2.4); AST(SGOT) 16 U/L (15-37); Alanine Aminotransfer ALT/SGPT 25 U/L (13-56); Albumin, Serum 3.8 g/dL (3.2-5.0); Alkaline Phosphatase 87 U/L (45-117); Anion Gap 4 (5-15); BUN 14 mg/dL (7-18); BUN/Creat Ratio 18.1 RATIO (10-20); Calcium,Total 8.4 mg/dL (8.5-10.1); Chloride 109 mmol/L (98-107); Cholesterol 141 mg/dL (200); Creatinine, Serum 0.78 mg/dL (0.55-1.02); EST Glomerular Filtration Rate 94 mL/min (>60); Est Glom Filt Rate - Afr Amer 114 mL/min (>60); Globulin 3.5 g/dL (2.2-4.2); Glucose 102 mg/dL (74-106); High Density Lipoprotein 41 mg/dL; Potassium 4.2 mmol/L (3.5-5.1); Protein, Total 7.3 g/dL (6.4-8.2); Sodium Level 139 mmol/L (136-145); T4 Free Direct 0.95 ng/dL (0.76-1.46); Thyroid Stim Hormone (TSH) 2.07 uIU/mL (0.358-3.74); Triglycerides 69 mg/dL; Very Low Density Lipoprotein 14 mg/dL (5-40)
[2024-01-22 08:12] LABS: Vitamin D,25 Hydroxy 30.1 ng/mL
== END 2024-01-20 23:59 | disposition home or self-care (01) ==
PROVIDERS: PCP Family Medicine; Referring Provider Family Medicine; Visit Provider Family Medicine
DX: Z00.00 Encounter for general adult medical examination without abnormal findings (principal); Z83.49 Family history of other endocrine, nutritional and metabolic diseases
CPT/HCPCS: 36415; 80053; 80061; 82306; 83036; 84439; 84443; 85025

== ENCOUNTER 2024-10-31 10:54 | Emergency (ER) | payer MEDICAID, SELFPAY ==
[2024-10-31 10:55] VITALS: BP 156/108; PULSE 88; RESP 15; TEMP 36.7; O2SAT 97; BMI 33.7
--- NOTE | 2024-10-31 11:11 | EX.ED.VIS.HA ---
HPI History of Present Illness Chief Complaint: Headache Informant: patient Narrative Narrative: Patient presents around 11 AM for what she is calling a migraine that woke her up around 4 AM and has been persistent despite her taking a couple ibuprofen and her Nurtec. It is left retro-orbital, associated with photophobia, nausea, and no other symptoms. She states these are the usual symptoms and location that she has with her migraines. She is on her menstrual cycle right now, which is a common trigger for her to have these so she is not surprised by the headache being here, however she would like it to go away so that she can go to work today. She states she has had akathisia with Reglan in the past. Not currently . Denies any recent illness. No focal neurologic symptoms. [facility] Medical History GERD (gastroesophageal reflux disease) Migraine Home Medications ?Medication ?Instructions ?Recorded ?Last Taken ?Type omeprazole 20 mg capsule,delayed 20 mg PO DAILY #30 caps 02/11/20 Unknown Rx release cyclobenzaprine 10 mg tablet 10 mg PO TID PRN Muscle Spasm #15 09/04/22 Unknown Rx TABLETS naproxen 500 mg tablet 500 mg PO BID #14 tabs 09/04/22 Unknown Rx oxycodone 10 mg tablet 10 mg PO TID PRN pain 3 days #9 09/04/22 Unknown Rx tabs ondansetron 4 mg disintegrating 4 mg PO Q8H PRN PRN Nausea #14 tabs 05/17/23 Unknown Rx tablet nortriptyline 10 mg capsule 10 mg PO DAILY 10/31/24 Unknown History rimegepant 75 mg disintegrating 75 mg PO DAILY PRN migraine 10/31/24 Unknown History tablet (Nurtec ODT) Allergy/AdvReac Type Severity Reaction Status Date / Time diphenhydramine (From AdvReac Other Verified 10/31/24 10:57 Benadryl) prochlorperazine (From AdvReac Other Verified 10/31/24 10:57 Compazine) Surgical History History of tonsillectomy Social History (Updated 10/31/24 @ 11:43 by Alethea Sheppard) household members: family current occupational status: employed Smoking Status: Never smoker substance use type: does not use ROS ROS ED Constitutional Constitutional ED: Denies chills or fever(s) Eyes Eyes: Reports photophobia; Denies blurry vision, change in vision or diplopia ENT ENT ED: Denies ear pain or sore throat Cardiovascular Cardiovascular: Denies chest pain or palpitations Respiratory/Chest Respiratory/Chest: Denies cough or dyspnea Gastrointestinal Gastrointestinal: Reports nausea; Denies abdominal pain, diarrhea or vomiting Genitourinary Genitourinary ED: Denies dysuria or urinary frequency Musculoskeletal Musculoskeletal: Denies back pain or myalgias Integumentary Denies abscess or rash Neurologic Neurologic: Reports headache(s); Denies paresthesias or weakness EXAM Physical Exam Const Vital Signs: 10/31/24 10:55 Temperature 98.1 F Temperature Source Temporal Pulse Rate 88 Respiratory Rate 15 Blood Pressure 156/108 H Blood Pressure Mean 124 Pulse Ox 97 Oxygen Delivery Method Room Air Positive well nourished and well developed General Appearance ED: well developed and NAD HEENT Reports normocephalic and moist mucous membranes atraumatic Eyes PERRL, EOMs intact bilaterally and conjunctivae normal Eyes Narrative: photophobia Neck no lymphadenopathy, supple and no meningeal signs Resp normal respiratory effort and clear to auscultation bilaterally GI non-tender and non-distended Palpation: soft Extremity normal to inspection and full ROM Neuro oriented x3 and CN's II-XII intact bilaterally Sensorium / Orientation: awake and alert Speech: speech normal Gait (Neuro): normal gait Motor Exam: strength 5/5 throughout Psych mental status grossly normal Skin Lesions: no lesions Rashes: no rashes MDM MDM MDM Narrative Medical decision making narrative: Patient requesting a liter of IV fluids and Toradol, she is amenable to getting dihydroergotamine in addition. On reexamination, she feels much better states her headache is completely resolved. No side effects. History and exam and response to medications consistent with a migraine headache. Stable for discharge. Discharge Plan Triage Chief Complaint: Headache ED Provider: Aditya Lew Dx/Rx/DC Orders Clinical Impression: Migraine headache Instructions: ED, Migraine (Classical) Prescriptions: No Action omeprazole 20 MG capsule 20 mg PO DAILY Qty: 30 0RF cyclobenzaprine [cyclobenzaprine] 10 mg tablet 10 mg PO TID PRN (Reason: Muscle Spasm) Qty: 15 0RF naproxen 500 mg tablet 500 mg PO BID Qty: 14 0RF oxycodone 10 mg tablet 10 mg PO TID PRN (Reason: pain) 3 Days Qty: 9 0RF ondansetron 4 mg tablet,disintegrating 4 mg PO Q8H PRN PRN (Reason: Nausea) Qty: 14 0RF nortriptyline 10 mg capsule 10 mg PO DAILY Nurtec ODT 75 mg tablet,disintegrating 75 mg PO DAILY PRN (Reason: migraine) Primary Care Provider: Care Physician,No Primary Referrals: doctor, your [Other] - As Needed Activity Restrictions/Additional Instructions: Today, you received DHE (dihydroergotamine) for your migraine. Print Language: Citizen Of [place] Disposition Disposition: Home, Self Care
[2024-10-31] MEDS: 0.9% Normal Saline (1000mL) 1,000 ML 999 ML IV (11:32)
[2024-10-31] MEDS: Ketorolac 15 MG/ML Vial IV (11:32)
[2024-10-31] MEDS: Dihydroergotamine 1 MG/ML Ampul IV (11:32)
[2024-10-31] MEDS: Ondansetron 4 MG/2 ML Vial IV (11:32)
[2024-10-31 13:32] VITALS: BP 124/69; PULSE 73; RESP 15; TEMP 36.8; O2SAT 100
== END 2024-10-31 13:33 | disposition home or self-care (01) ==
PROVIDERS: Emergency Provider Emergency Medicine; Visit Provider Emergency Medicine
DX: G43.909 Migraine, unspecified, not intractable, without status migrainosus (principal); K21.9 Gastro-esophageal reflux disease without esophagitis
CPT/HCPCS: J1110; J2405; 96361; 96374; 96375; 99283; A4216

== ENCOUNTER 2025-09-09 09:58 | Emergency (ER) | payer MEDICAID, SELFPAY ==
[2025-09-09 09:59] VITALS: BP 165/100; PULSE 86; RESP 16; TEMP 36.6; O2SAT 99
[2025-09-09] MEDS: Ketorolac 30 MG/ML Syringe IV (10:23)
--- NOTE | 2025-09-09 10:24 | EDS_ITS ---
HPI History of Present Illness Chief Complaint: Headache Informant: patient Narrative Narrative: 29-year-old female presenting to the emergency room with a chief complaint of migraine headache. Patient states that she typically can manage her headaches at home using Nurtec and anti-inflammatories. She states that this headache is left-sided occipital radiating towards the left retro-orbital region. She states that is common for her symptomology. She denies any fever. She has been drinking plenty of fluids. She had anti-inflammatories today without relief. She states typically Toradol is enough to improve the headache to achieve resolution. She states that she does not do well with Reglan having had akathisia before. In October of this year she was seen in the emergency room for migraine headache had Toradol and DHE. She states the DHE did not make her feel well for the next several days and would like to try just Toradol. She reports vomiting last night not from the migraine but from eating a piece of moldy bread. [facility] Medical History GERD (gastroesophageal reflux disease) Migraine Home Medications ?Medication ?Instructions ?Recorded ?Last Taken ?Type omeprazole 20 mg capsule,delayed 20 mg PO DAILY #30 ca ps 02/11/20 Unknown Rx release cyclobenzaprine 10 mg tablet 10 mg PO TID PRN Muscle S pasm #15 09/04/22 Unknown Rx TABLETS naproxen 500 mg tablet 500 mg PO BID #14 tabs 09/04 Unknown Rx oxycodone 10 mg tablet 10 mg PO TID PRN pain 3 days #9 09/04/22 Unknown Rx tabs ondansetron 4 mg disintegrating 4 mg PO Q8H PRN PRN Na usea #14 tabs 05/17/23 Unknown Rx tablet nortriptyline 10 mg capsule 10 mg PO DAILY 10/31/24 Un known History rimegepant 75 mg disintegrating 75 mg PO DAILY PRN juanita beny 10/31/24 Unknown History tablet (Nurtec ODT) amlodipine 5 mg tablet 5 mg PO DAILY #30 tabs 09/09 Unknown Rx Allergy/AdvReac Type Severity Reaction Status Date / Time diphenhydramine (From AdvReac Other Verified 09/09/25 10:01 Benadryl) prochlorperazine (From AdvReac Other Verified 09/09/25 10:01 Compazine) Surgical History History of tonsillectomy Social History household members: family current occupational status: employed Smoking Status: Never smoker substance use type: does not use ROS ROS ED Constitutional Constitutional ED: Denies chills, fever(s) or weight loss Eyes Eyes: Denies change in vision or diplopia ENT ENT ED: Denies ear pain, rhinorrhea or sore throat Cardiovascular Cardiovascular: Denies chest pain, orthopnea, palpitations or racing heartbeat Respiratory/Chest Respiratory/Chest: Denies cough, dyspnea or orthopnea Gastrointestinal Gastrointestinal: Denies abdominal pain, diarrhea, nausea or vomiting Genitourinary Genitourinary ED: Denies dysuria, hematuria or urinary frequency Musculoskeletal Musculoskeletal: Denies arthralgias or myalgias Integumentary Denies abscess or rash Neurologic Neurologic: Reports headache(s); Denies paresthesias or weakness Psychiatric Psychiatric: Denies anxiety, depression, suicidal ideation or suicidal thoughts Endocrine Endocrinology: Denies polydipsia, polyphagia or polyuria Allergic/Immunologic Allergic/Immunologic ED: Denies mouth swelling, tongue swelling or urticaria EXAM Physical Exam Const Vital Signs: 09/09/25 09:59 09/09/25 11:05 09/09/25 12:34 Temperature 98 F 98 F Temperature Source Oral Pulse Rate 86 76 63 Respiratory Rate 16 18 14 Blood Pressure 165/100 H 146/103 H 156/101 H Blood Pressure Mean 121 117 119 Pulse Ox 99 99 99 Oxygen Delivery Method Room Air Positive well nourished and well developed General Appearance ED: well developed HEENT Reports normocephalic, head/scalp atraumatic and moist mucous membranes Eyes PERRL and EOMs intact bilaterally Neck no lymphadenopathy, supple and no JVD Resp normal respiratory effort and clear to auscultation bilaterally Cardio regular rate, regular rhythm and no murmurs GI normal to inspection, nondistended, normoactive bowel sounds and non-tender Palpation: soft Back/Spine no CVA tenderness and normal ROM Extremity normal to inspection General Extremety ED: Negative for edema General Extremity: Negative for edema Neuro oriented x3, CN's II-XII intact bilaterally and no sensory deficits noted Justin Coma Scale: document GCS findings Spontaneous Obeys Commands Oriented 15 Sensorium / Orientation: alert Motor Exam: strength 5/5 throughout Psych mental status grossly normal Mood & Affect: Negative for depressed or tearful Skin no rashes or lesions noted and no wounds MDM MDM MDM Narrative Medical decision making narrative: Differential diagnosis includes hypertension migraine dehydration hypertensive urgency hypertensive emergency Patient neurologically intact. This feels similar to prior headaches. She received a dose of Toradol and she notes her pain is significantly better. She remains hypertensive in the 156/100 range. She states that she was given blood pressure medication at 1 point but she adjusted her diet and made lifestyle modifications and did not require it but she has noticed that her blood pressure has been elevated again as she has resumed fast food. Patient is interested in trialing a blood pressure medication. I can write for some amlodipine 5 mg after we discussed multiple different classes of medications and potential side effects. Patient is to monitor her blood pressure follow-up with her doctor. History & Record Review Discussion w/independent historian: Patient Discharge Plan Triage Chief Complaint: Headache ED Provider: Nolan Solorzano Dx/Rx/DC Orders Clinical Impression: Migraine, Hypertension Instructions: ED High Blood Pressure New Begin Tx, ED, Migraine (Classical) Prescriptions: New amlodipine 5 mg tablet 5 mg PO DAILY Qty: 30 0RF No Action omeprazole 20 MG capsule 20 mg PO DAILY Qty: 30 0RF cyclobenzaprine [cyclobenzaprine] 10 mg tablet 10 mg PO TID PRN (Reason: Muscle Spasm) Qty: 15 0RF naproxen 500 mg tablet 500 mg PO BID Qty: 14 0RF oxycodone 10 mg tablet 10 mg PO TID PRN (Reason: pain) 3 Days Qty: 9 0RF ondansetron 4 mg tablet,disintegrating 4 mg PO Q8H PRN PRN (Reason: Nausea) Qty: 14 0RF nortriptyline 10 mg capsule 10 mg PO DAILY Nurtec ODT 75 mg tablet,disintegrating 75 mg PO DAILY PRN (Reason: migraine) Primary Care Provider: Octaviano Seals Referrals: Care Physician,No Primary [Non-Staff, Medical] Activity Restrictions/Additional Instructions: Please follow-up with your primary care doctor in the next several weeks to revisit your blood pressure. Print Language: [place] Disposition Disposition: Home, Self Care Discharge Date/Time: 09/09/25 12:35
[2025-09-09 11:05] VITALS: BP 146/103; PULSE 76; RESP 18; O2SAT 99
[2025-09-09 12:34] VITALS: BP 156/101; PULSE 63; RESP 14; TEMP 36.6; O2SAT 99
== END 2025-09-09 12:35 | disposition home or self-care (01) ==
PROVIDERS: Emergency Provider Emergency Medicine; PCP Nurse Practitioner Family; Visit Provider Emergency Medicine
DX: G43.909 Migraine, unspecified, not intractable, without status migrainosus (principal); I10 Essential (primary) hypertension; K21.9 Gastro-esophageal reflux disease without esophagitis; Z79.899 Other long term (current) drug therapy
CPT/HCPCS: 96374; 99283; A4216